=== PATIENT | male | born 1950 | race Caucasian/White ===

== ENCOUNTER → 2018-02-18 07:09 | Outpatient (CLI) | payer MEDICARE, OTHER, SELFPAY ==
--- NOTE | 2018-02-18 07:13 | CT_ITS ---
STUDY: CT MAXILLOFACIAL SINUSES REASON FOR EXAM: Male, 67 years old. Sinusitis. RADIATION DOSAGE (If Supplied By Facility): CTDIvol = ( 33.06 ) mGy, DLP = ( 813.19 ) mGycm TECHNIQUE: The patient was scanned in a multi detector CT scanner. High resolution axial imaging was performed without the administration of intravenous contrast material. Sagittal and coronal images were reconstructed. Individualized dose optimization techniques were used for this CT. COMPARISON: None. FINDINGS: FRONTAL SINUSES: There is a small mucous retention cyst within the left frontal sinus. ETHMOIDAL SINUSES: Normal aeration, without mucosal inflammatory disease. MAXILLARY SINUSES: Normal aeration, without mucosal inflammatory disease. SPHENOIDAL SINUSES: Normal aeration, without mucosal inflammatory disease. There is patency of the bilateral maxillary infundibuli with normal uncinate processes, ethmoid bullae, and hiatus semilunaris. Normal bilateral middle turbinates. Normal bilateral inferior turbinates. Normal midline nasal septum. There is patency of the bilateral nasal airways. There is no osseous expansion, destruction or sclerosis. The visualized bilateral orbital contents are normal. CT/Sinus/Facial Bone IMPRESSION: Left frontal sinus mucus retention cyst. The ostiomeatal units are patent bilaterally. Electronically Signed: Michael Chin MD at 7:36 EDT , Service support ,
== END ==
PROVIDERS: Family Provider Family Medicine; PCP Family Medicine; Visit Provider Otolaryngology
DX: J32.9 Chronic sinusitis, unspecified (principal)
CPT/HCPCS: 70486

== ENCOUNTER → 2018-06-17 11:25 | Outpatient (CLI) | payer MEDICARE, OTHER, SELFPAY ==
[2018-06-17 13:45] LABS: Absolute Lymphocyte Count 1.26 X10^3/ul (0.83-4.51); Absolute Neutrophil Count 1.9 X10^3/uL (2.0-7.7); Basophil# 0.03 X10^3/uL; Basophil% 0.8 % (0-1); Eosinophil# 0.24 X10^3/uL; Eosinophils% 6.1 % (0-5); Hematocrit 43.5 % (40-54); Lymphocyte # 1.26 X10^3/ul (4.0); Lymphocyte % 31.8 % (19-41); Mean Corp Hgb Conc 32.2 g/gl (32-36); Mean Corpuscular Volume 90.1 fL (80-94); Mean Platelet Vol. 9.5 fl (6.2-12.0); Monocyte# 0.55 X10^3/uL; Monocyte% 13.9 % (0-10); Neutrophil # 1.88 X10^3/uL (2.7-7.7); Neutrophil % 47.4 % (47-70); POSITIVE COUNT NO; POSITIVE DIFFERENTIAL NO; POSITIVE MORPHOLOGY NO; Platelet Count 284 K/mm3 (150-450); RBC Distribution Width CV 13.8 % (11.6-14.6); Red Blood Count 4.83 M/mm3 (4.6-6.2)
[2018-06-17 14:07] LABS: ALB/GLOB Ratio 1.2 RATIO (0.9-2.4); AST(SGOT) 22 U/L (15-37); Alanine Aminotransfer ALT/SGPT 30 U/L (16-61); Albumin, Serum 3.7 g/dL (3.2-5.0); Alkaline Phosphatase 84 U/L (45-117); Anion Gap 9 (5-15); BUN 11 mg/dL (7-18); BUN/Creat Ratio 13.5 RATIO (10-20); Calcium,Total 8.8 mg/dL (8.5-10.1); Chloride 100 mmol/L (98-107); Creatinine, Serum 0.81 mg/dL (0.70-1.30); EST Glomerular Filtration Rate 100 mL/min (>60); Est Glom Filt Rate - Afr Amer 121 mL/min (>60); Ferritin 59 ng/mL (26-388); Globulin 3.1 g/dL (2.2-4.2); Glucose 90 mg/dL (74-106); Protein, Total 6.8 g/dL (6.4-8.2); Sodium Level 138 mmol/L (136-145); Thyroid Stim Hormone (TSH) 1.58 uIU/mL (0.358-3.74)
[2018-06-18 08:49] LABS: Vitamin B12 292 pg/mL (211-911)
== END ==
PROVIDERS: Family Provider Family Medicine; PCP Family Medicine; Visit Provider Family Medicine
DX: R25.8 Other abnormal involuntary movements (principal)
CPT/HCPCS: 36415; 80053; 82607; 82728; 82746; 84443; 85025

== ENCOUNTER → 2018-12-16 10:00 | Outpatient (CLI) | payer MEDICARE, OTHER, SELFPAY ==
[2018-12-16 12:49] LABS: ALB/GLOB Ratio 1.3 RATIO (0.9-2.4); AST(SGOT) 17 U/L (15-37); Alanine Aminotransfer ALT/SGPT 27 U/L (16-61); Albumin, Serum 3.8 g/dL (3.2-5.0); Alkaline Phosphatase 85 U/L (45-117); Anion Gap 9 (5-15); BUN 13 mg/dL (7-18); BUN/Creat Ratio 15.2 RATIO (10-20); Calcium,Total 8.8 mg/dL (8.5-10.1); Chloride 100 mmol/L (98-107); Creatinine, Serum 0.86 mg/dL (0.70-1.30); EST Glomerular Filtration Rate 94 mL/min (>60); Est Glom Filt Rate - Afr Amer 113 mL/min (>60); Glucose 70 mg/dL (74-106); Potassium 4.1 mmol/L (3.5-5.1); Protein, Total 6.8 g/dL (6.4-8.2); Sodium Level 138 mmol/L (136-145)
[2018-12-16 13:17] LABS: Vitamin B12 > 2000 pg/mL (211-911)
== END ==
PROVIDERS: Family Provider Family Medicine; PCP Family Medicine; Visit Provider Family Medicine
DX: E53.8 Deficiency of other specified B group vitamins (principal); G40.909 Epilepsy, unspecified, not intractable, without status epilepticus
CPT/HCPCS: 36415; 80053; 80186; 82607

== ENCOUNTER → 2019-06-25 08:43 | Outpatient (CLI) | payer MEDICARE, OTHER, SELFPAY ==
[2019-06-25 10:09] LABS: Absolute Lymphocyte Count 0.93 X10^3/uL (0.83-4.51); Basophil# 0.04 X10^3/uL; Eosinophil# 0.25 X10^3/uL; Eosinophils% 6.5 % (0-5); Hemoglobin 14.1 g/dL (13.0-16.5); Lymphocyte # 0.93 X10^3/ul (4.0); Lymphocyte % 24.3 % (19-41); Mean Corp Hgb Conc 32.8 g/dL (32-36); Mean Corpuscular Hgb 30.1 pg (27.0-32.0); Mean Corpuscular Volume 91.9 fL (80-94); Monocyte# 0.58 X10^3/uL; Monocyte% 15.2 % (0-10); NRBC Flagged by Analyzer 0 % (0-5); Neutrophil # 2.01 X10^3/uL (2.7-7.7); Neutrophil % 52.7 % (47-70); Platelet Count 296 K/mm3 (150-450); RBC Distribution Width CV 13.1 % (11.6-14.6); RBC Distribution Width SD 44.2 fl (35.1-43.9); Red Blood Count 4.68 M/mm3 (4.6-6.2); White Blood Count 3.8 K/mm3 (4.4-11.0)
[2019-06-25 10:32] LABS: Vitamin B12 > 2000 pg/mL (211-911)
[2019-06-25 10:34] LABS: ALB/GLOB Ratio 1.3 RATIO (0.9-2.4); AST(SGOT) 16 U/L (15-37); Alanine Aminotransfer ALT/SGPT 26 U/L (16-61); Albumin, Serum 3.6 g/dL (3.2-5.0); Alkaline Phosphatase 89 U/L (45-117); Anion Gap 7 (5-15); BUN 7 mg/dL (7-18); BUN/Creat Ratio 9.1 RATIO (10-20); Calcium,Total 8.5 mg/dL (8.5-10.1); Chloride 102 mmol/L (98-107); Cholesterol 184 mg/dL (200); Creatinine, Serum 0.77 mg/dL (0.70-1.30); EST Glomerular Filtration Rate 106 mL/min (>60); Est Glom Filt Rate - Afr Amer 128 mL/min (>60); Ferritin 58 ng/mL (26-388); Globulin 2.8 g/dL (2.2-4.2); Glucose 90 mg/dL (74-106); High Density Lipoprotein 66 mg/dL; Magnesium 2.4 mg/dL (1.6-2.6); Potassium 3.9 mmol/L (3.5-5.1); Protein, Total 6.4 g/dL (6.4-8.2); Sodium Level 138 mmol/L (136-145); Thyroid Stim Hormone (TSH) 1.75 uIU/mL (0.358-3.74); Triglycerides 101 mg/dL; Very Low Density Lipoprotein 20 mg/dL (5-40)
== END ==
PROVIDERS: Family Provider Family Medicine; PCP Family Medicine; Referring Provider Family Medicine; Visit Provider Nurse Practitioner Family
DX: E53.8 Deficiency of other specified B group vitamins (principal); R25.8 Other abnormal involuntary movements; R53.83 Other fatigue
CPT/HCPCS: 36415; 80053; 80061; 82607; 82728; 83735; 84443; 85025

== ENCOUNTER 2019-08-23 05:29 | Observation (INO) | payer MEDICARE, OTHER, SELFPAY ==
[2019-08-23] VITALS (12 sets, daily range): BP systolic 103–126; BP diastolic 60–74; PULSE 80–103; RESP 16–18; TEMP 36.5–37.6; O2SAT 95–100; BMI 28.4; BMI 24.7; BMI 24.8
--- NOTE | 2019-08-23 05:43 | EKG12_ITS ---
Test Reason : SYNCOPE Blood Pressure : / mmHG Vent. Rate : 073 BPM Atrial Rate : 073 BPM P-R Int : 148 ms QRS Dur : 094 ms QT Int : 432 ms P-R-T Axes : 054 -09 056 degrees QTc Int : 475 ms Normal sinus rhythm Normal ECG Confirmed by JET QUIROZ, LAURA ([id number]), graphics editor SUDHIR CASTILLO ([id number]) on 08/25/2019 11:00:54 AM Referred By: GEMINI Confirmed By:LAURA CHAUDHARY MD
--- NOTE | 2019-08-23 05:43 | CT_ITS ---
STUDY: CT BRAIN WITHOUT CONTRAST REASON FOR EXAM: Male, 69 years old. Syncope, post injury. RADIATION DOSAGE (If Supplied By Facility): CTDIvol = ( 44.99 ) mGy, DLP = ( 812.98 ) mGycm TECHNIQUE: Transaxial CT imaging of the brain was performed without administration of intravenous contrast material. Individualized dose optimization techniques were used for this CT. COMPARISON: No relevant priors. FINDINGS: Normal soft tissue structures. Normal calvarium. There is mild cerebral atrophy with widening of the extra-axial spaces and ventricular dilatation. There are areas of decreased attenuation within the white matter tracts of the supratentorial brain, consistent with microvascular disease changes. Normal basal ganglia and thalami. Normal brainstem. Normal cerebellum. There is no intracranial hemorrhage. There are no findings of an acute ischemic infarction. There is mucosal thickening involving the right maxillary sinus. Remainder of the maxillary sinuses are clear. CT/Brain/Head without Contrast IMPRESSION: Generalized brain atrophy along with microangiopathic white matter disease. No acute intracranial hemorrhage or space-occupying lesion. Electronically Signed: Yola Morejon MD at 7:27 EDT , Service support ,
--- NOTE | 2019-08-23 05:44 | RAD_ITS ---
STUDY: X-RAY CHEST REASON FOR EXAM: Male, 69 years old. Reflux/syncope. TECHNIQUE: Single AP portable view of the chest. COMPARISON: None. FINDINGS: The lungs are normally expanded with right perihilar atelectasis. Remainder of the lung emery are clear. There is no demonstrated pleural abnormality. Normal size heart. Normal mediastinum and regis. Normal visualized pulmonary arteries. There is atherosclerotic calcification of the aortic arch with tortuosity. There are diffuse degenerative changes of the visualized thoracic spine. There is degenerative osteoarthritis of the bilateral shoulders. There is no demonstrated abnormality of the visualized soft tissue structures of the upper abdomen. RAD/Chest 1 View (Portable) IMPRESSION: Right perihilar atelectasis, otherwise no acute process identified. Electronically Signed: Yola Morejon MD at 6:08 EDT , Service support ,
[2019-08-23] MEDS: 0.9% Normal Saline 1,000 ML 150 ML IV ×3 (05:50→19:22)
[2019-08-23 06:11] LABS: Absolute Lymphocyte Count 0.62 X10^3/uL (0.83-4.51); Absolute Neutrophil Count 8.2 X10^3/uL (2.0-7.7); Basophil# 0.03 X10^3/uL; Basophil% 0.3 % (0-1); Eosinophil# 0.25 X10^3/uL; Eosinophils% 2.5 % (0-5); Hematocrit 42.9 % (40-54); Hemoglobin 14.2 g/dL (13.0-16.5); Lymphocyte # 0.62 X10^3/ul (4.0); Lymphocyte % 6.3 % (19-41); Mean Corp Hgb Conc 33.1 g/dL (32-36); Mean Corpuscular Hgb 30.4 pg (27.0-32.0); Mean Corpuscular Volume 91.9 fL (80-94); Mean Platelet Vol. 8.3 fl (6.2-12.0); Monocyte# 0.77 X10^3/uL; Monocyte% 7.8 % (0-10); NRBC Flagged by Analyzer 0 % (0-5); Neutrophil # 8.19 X10^3/uL (2.7-7.7); Neutrophil % 82.8 % (47-70); Platelet Count 286 K/mm3 (150-450); RBC Distribution Width CV 12.9 % (11.6-14.6); RBC Distribution Width SD 43.6 fl (35.1-43.9); Red Blood Count 4.67 M/mm3 (4.6-6.2); White Blood Count 9.9 K/mm3 (4.4-11.0)
[2019-08-23 06:28] LABS: Anion Gap 5 (5-15); BUN 12 mg/dL (7-18); BUN/Creat Ratio 17.1 RATIO (10-20); Calcium,Total 7.7 mg/dL (8.5-10.1); Chloride 102 mmol/L (98-107); EST Glomerular Filtration Rate 118 mL/min (>60); Est Glom Filt Rate - Afr Amer 142 mL/min (>60); Estimated Creatinine Clearance 61.14 ml/min; Glucose 144 mg/dL (74-106); Potassium 3.8 mmol/L (3.5-5.1); Sodium Level 136 mmol/L (136-145)
--- NOTE | 2019-08-23 06:50 | ED.VISSUMM ---
- ER Visit Summary Date of Service: 08/23/19 Chief Complaint: [Syncope] History of Present Illness: The patient is a 69 M [presents to the emergency department with syncope that occurred this morning. Patient states that he was having a hard time sleeping last night because he had a lot of heartburn and reflux. Patient woke up around 4:45 AM to use the restroom and while standing to urinate started feeling nauseated so he lowered himself toward the toilet to vomit in the toilet and then passed out onto the floor. Patient did hit his head. Patient's heard him fall and went into the bathroom and patient was confused and disoriented. EMS was called and on arrival EMS evaluated the patient made him sit in the chair which time he passed out again. He comes in stating he just does not feel right. He denies any chest pain or shortness of breath. He does have history of syncope. Patient has history of seizures. Patient is on Dilantin. No seizure activity noted by .] Physical Examination: [HEENT-PERRLA, EOMI. Cranial nerves II through XII grossly intact. TMs clear. Mucous membranes moist. No adenopathy. Cardiovascular-regular rate and rhythm without murmur or ectopy Lungs-clear to auscultation, chest wall stable without crepitus or subcu emphysema Abdomen-normoactive bowel sounds, soft, nontender, no rebound or rigidity, no peritoneal signs. Extremities-intact ?4, normal range of motion, normal pulses, atraumatic] Test Results: [EKG obtained on arrival shows sinus rhythm with a ventricular rate of 73 bpm with no acute ST segment changes. CBC with differential was normal. Chemistries normal. Troponin is less than 0.015. Calcium was low at 7.7. Chest x-ray showed some right perihilar atelectasis otherwise nothing acute. CT scan of the brain without contrast obtained interpreted by myself is no obvious hemorrhage or skull fracture. Official report pending from radiology. Dilantin level pending.] Emergency Department Course and Treatment: [Case was discussed with hospitalist who will evaluate patient for admission. Patient was placed on a traffic monitor specialist on arrival.] Treatment Plan: [Admit] Disposition: [Admit] Impression: [Syncope] This note was generated with Fib[employer] software. It may contain incorrect words, spelling, and punctuation that were not noted in review of the chart prior to signing ED Disposition - Plan for ED Patient: Referrals: Julio Rene MD [Primary Care Provider] -
--- NOTE | 2019-08-23 07:15 | NURSING ---
HOSPITALIST PAGED DR MARCIAL FOR DR THORNTON
--- NOTE | 2019-08-23 07:58 | ECHOD_ITS ---
Reason For Study: Syncope Procedure This was a 2D Doppler, Color Flow transthoracic echocardiogram. Contrast injection was performed. The study was technically difficult. Exam performed in department. Left Ventricle Normal LV size. Left ventricular systolic function is normal. Stage 1 diastolic dysfunction. No regional wall motion abnormalities noted. Right Ventricle Normal RV size. Normal systolic function. Atria Normal left atrium. Normal right atrium. Mitral Valve Normal mitral valve. Tricuspid Valve Normal tricuspid valve. Mild tricuspid valve insufficiency. Aortic Valve Trisinus/trileaflet aortic valve. Pulmonic Valve Normal pulmonic valve. Great Vessels Mildly dilated aortic root. The pulmonary artery is normal size. Normal inferior vena cava. Pericardium/Pleural No pericardial effusion. Medication Diluted definity 2ml given slow IV push to enhance endocardial definition. Performed a rapid injection of agitated mix of 9 cc saline and 1cc air to assess for atrial septal defect. MMode/2D Measurements & Calculations LVIDd: 4.2 cm IVSd: 1.2 cm Ao root diam: 3.8 cm LVIDs: 2.8 cm LVPWd: 1.1 cm LA dimension: 3.3 cm RVDd: 3.3 cm FS: 34.1 % LAV(MOD-bp): 41.0 ml LA A4 area: 14.6 cm2 RA A4 area: 13.6 cm2 LAV(MOD-bp) Indexed: 22.9 ml/m2 LAV(MOD-sp2): 42.3 ml LAV(MOD-sp4): 36.6 ml Time Measurements MV dec time: 0.22 sec Doppler Measurements & Calculations MV E max edin: 66.1 cm/sec Lat Peak E' Edin: 9.6 cm/sec Med Peak E' Edin: 5.2 cm/sec MV A max edin: 76.6 cm/sec E/E' lat: 6.9 E/E' med: 12.6 MV E/A: 0.86 MV V2 max: 79.6 cm/sec MV P1/2t max dein: 68.1 cm/sec Ao V2 max: 99.0 cm/sec MV max P.5 mmHg MV P1/2t: 81.1 msec Ao max P.9 mmHg MV V2 mean: 42.6 cm/sec MV dec slope: 245.8 cm/sec2 MV mean P.85 mmHg MV V2 VTI: 21.6 cm MVA(P1/2t): 2.7 cm2 LV V1 max: 73.2 cm/sec PA V2 max: 66.6 cm/sec TR max edin: 219.7 cm/sec LV V1 max P.1 mmHg TR max P.3 mmHg Interpretation Summary Normal LV size. Left ventricular systolic function is normal. Stage 1 diastolic dysfunction. Mild tricuspid valve insufficiency. Contrast injection was performed. Ordering Physician: Pat You Referring Physician: Julio Rene Performed By: Felix Rodriguez RCS
[2019-08-23 08:24] LABS: Phenytoin (Dilantin) Level 15.3 mL (10.0-20.0)
[2019-08-23 09:08] LABS: Cholesterol 150 mg/dL (200); High Density Lipoprotein 52 mg/dL; Triglycerides 58 mg/dL; Very Low Density Lipoprotein 12 mg/dL (5-40)
[2019-08-23] MEDS: Calcium Carb/Vitamin D 1 TABLET Tablet PO ×3 (10:05→17:17)
[2019-08-23] MEDS: Famotidine 20 MG Tablet PO (10:05)
[2019-08-23] MEDS: Aspirin 81 MG TAB.CHEW PO (10:05)
[2019-08-23] MEDS: Phenytoin Na 100 MG Capsule PO ×3 (10:06→17:17)
--- NOTE | 2019-08-23 12:10 | HP.PCM_ITS ---
Problem List (1) GERD (gastroesophageal reflux disease) Status: Chronic (2) History of seizure Status: Chronic (3) Seasonal allergies Status: Chronic (4) Syncope Status: Acute History of Present Illness Date of Admission: 08/23/19 Chief Complaint: Syncope. The patient is a 69 year old M who presents to the emergency room following 2 episodes of syncope this morning. Patient reports he was up throughout the night due to severe acid reflux and sinus drainage. He states he got up to go to the bathroom this morning and felt like he could throw up, he reports he fell to the ground at that time. He denies any dizziness or other symptoms prior to syncope. His found him on the bathroom floor and called the squad. He reports the squad helped him into a chair and he had an additional episode of syncope. He denies history of syncope in the past. He reports he has a history of seizures however he has not had a seizure in at least 10 years. He and his deny any seizure activity during syncopal episodes. Patient reports he is having difficulty sleeping and has upcoming follow-up regarding this. He also reports earlier this week he had low-grade fever, no other associated symptoms. He has a past medical history of GERD, seasonal allergies and history of seizures. Past Medical History Past Medical History (Chronic Problems): Chronic Problems GERD (gastroesophageal reflux disease) (Chronic) History of seizure (Chronic) Seasonal allergies (Chronic) Allergies No Known Allergies Allergy (Verified 08/23/19 05:30) Home Medications: Ambulatory Orders Medication Instructions Recorded Aspirin [Aspirin, Baby] 81 mg PO DAILY@0800 08/23/19 Calcium Citrate/Vitamin D3 1 ea PO TID 08/23/19 [Calcium Citrate - Vit D Tablet] Chlorpheniramine Maleate 4 mg PO QHS 08/23/19 Fluticasone 0.05% [Flonase Nasal 4 spray NASAL QHS 08/23/19 [place]] Levocetirizine Dihydrochloride 5 mg PO DAILY 08/23/19 Magnesium Oxide 250 mg PO QHS 08/23/19 Mometasone Furoate 15 gm TP DAILY PRN PRN 08/23/19 Phenytoin Na [Dilantin] 100 mg PO TID 08/23/19 Ranitidine [Zantac] 150 mg PO BID 08/23/19 Surgical History: TURP, - - Mole excision x2 as child. Psychiatric History: No pertinent psych hx Lives: Spouse/ Significant Other Smoking Status: Never smoker Alcohol: Occasional Drugs: None - *Family History Maternal History Items: - - Alzheimer's, passed related to bone infection Paternal History Items: - - Pancreatic cancer Review of Systems Constitutional: Denies: Chills, Fever, Weight Change HEENT: Reports: Sinus Drainage. Denies: Head Aches, Sinus Congestion Cardiovascular: Reports: Syncope. Denies: Chest Pain, Edema, Light Headedness, Palpitations Respiratory: Denies: Cough, Shortness of breath at rest, Sputum production Gastrointestinal: Reports: - - Acid reflux. Denies: Abdominal Pain, Nausea, Vomiting Genitourinary: Denies: Dysuria Musculoskeletal: Denies: Joint Pain, Joint Tenderness Skin: Denies: Rash, Wounds Neurological: Denies: Numbness, Tingling, Focal weakness Psychiatric: Denies: Anxiety, Depression, Homicidal Ideations, Suicidal Ideations Hematologic/ Lymphatic: Denies: Easy Bruising, Easy Bleeding VTE Information - Inpt Only VTE Present on Admission: No VTE Mechan Device Prophylaxis: None VTE Pharm Prophylaxis ordered?: Yes Patient Problems: Active and Suspected Problems Syncope (Acute) - Physical Exam Vitals/I&O's: Vital Signs Temp Pulse Resp BP Pulse Ox 98.1 F 98 17 111/60 95 08/23/19 08:03 08/23/19 11:05 08/23/19 08:03 08/23/19 08:03 08/23/19 08:15 Oxygen Delivery Method Room Air Weight: 156 lb 1.396 oz Body Mass Index (BMI) 24.7 General: Alert, Oriented x3, Cooperative HEENT: Atraumatic, PERRLA, EOMI, Normocephalic Neck: Supple, No JVD, Negative Carotid Bruits Lungs: Clear to auscultation, Normal air movement Cardiovascular: Regular rate, Regular Rhythm, Normal S1, Normal S2, No murmurs Abdomen: Bowel Sounds Present, Soft, Non Tender, Non-Distended Extremities: No clubbing, No cyanosis, No edema, Capillary Refill Less than 3 Seconds Skin: No rashes, No breakdown Musculoskeletal: No Tenderness to Palpation of Joints or Extremities Neurological: Cranial nerves II-XII grossly intact, Neuro grossly intact Psych/Mental Status: Normal Affect, Appropriate Laboratory Results 08/23/19 05:53: WBC 9.9, RBC 4.67, Hgb 14.2, Hct 42.9, MCV 91.9, MCH 30.4, MCHC 33.1, RDW Std Deviation 43.6, RDW Coeff of Joey 12.9, Plt Count 286, MPV 8.3, Immature Gran % (Auto) 0.300, Neut % (Auto) 82.8 H, Lymph % (Auto) 6.3 L, Gray % (Auto) 7.8, Eos % (Auto) 2.5, Baso % (Auto) 0.3, Absolute Neuts (auto) 8.2 H, Absolute Lymphs (auto) 0.62 L, Nucleated RBC % 0 08/23/19 05:53: Sodium 136, Potassium 3.8, Chloride 102, Carbon Dioxide 29.0, Anion Gap 5, BUN 12, Creatinine 0.70, Estim Creat Clear Calc 61.14, Est GFR (MDRD) Af Amer 142, Est GFR (MDRD) Non-Af 118, BUN/Creatinine Ratio 17.1, Glucose 144 H, Calcium 7.7 L, Troponin I < 0.015 08/23/19 07:40: Phenytoin 15.3 08/23/19 08:15: Triglycerides 58, Cholesterol 150, LDL Cholesterol 86, VLDL Cholesterol 12, HDL Cholesterol 52 08/23/19 08:15: Magnesium 2.0 08/23/19 08:15: CK Isoenzymes Pending, CK-MM (CK-3) Pending, CK-MB (CK-2) Pending, CK-BB (CK-1) Pending 08/23/19 08:15: Troponin I < 0.015 08/23/19 11:18: Troponin I < 0.015 Current Medications Aspirin (Aspirin, Baby) 81 mg PO DAILY@0800 REPLACED BY [facility] Last Admin: 08/23/19 10:05 Dose: 81 mg Documented by: Calcium/Vitamin D (Os-Rahul 500mg + D) 1 tablet PO TIDCM REPLACED BY [facility] Last Admin: 08/23/19 10:05 Dose: 1 tablet Documented by: Famotidine (Pepcid) 20 mg PO BID REPLACED BY [facility] Last Admin: 08/23/19 10:05 Dose: 20 mg Documented by: Fluticasone Propionate (Flonase Nasal [place]) 4 spray NASAL DAILY REPLACED BY [facility] Sodium Chloride () 1,000 mls @ 150 mls/hr IV .Q6H40M REPLACED BY [facility] Last Admin: 08/23/19 05:50 Dose: 150 mls/hr Documented by: Magnesium Hydroxide (Milk Of Magnesia) 30 ml PO DAILY PRN PRN PRN Reason: Constipation Melatonin (Melatonin) 3 mg PO QHS PRN PRN PRN Reason: INSOMNIA Nitroglycerin (Nitrostat) 0.4 mg SUBLINGUAL Q5M PRN PRN Reason: CARDIAC/CHEST PAIN Non-Formulary Medication (Mometasone Furoate) 15 gm TP PRN PRN PRN Reason: skin Ondansetron HCl (Zofran) 4 mg IV Q8H PRN PRN PRN Reason: NAUSEA/VOMITING Phenytoin Sodium (Dilantin) 100 mg PO TIDCM REPLACED BY [facility] Last Admin: 08/23/19 10:06 Dose: 100 mg Documented by: Assessment/Plan All Active Problems Syncope (Acute) 1. Syncope-unclear etiology. Trend enzymes. Monitor telemetry. Obtain echocardiogram and stress test. Check UA. Check orthostatic vitals. Brain CT shows generalized brain atrophy, no acute process. Chest x-ray shows right perihilar atelectasis. 2. GERD- on ranitidine at home. Try short course of PPI. 3. Seasonal allergies, sinus drainage-continue home Flonase regimen. 4. History of seizures-has not had a seizure in over 10 years. Continue home Dilantin regimen. DVT prophylaxis-SCDs This patient was seen by VAUGHN Harris under the supervision of Dr. You.
[2019-08-23 13:05] LABS: Hemoglobin A1c 5.4 % (4.2-6.3)
[2019-08-23] MEDS: Pantoprazole Sodium 40 MG Tablet PO ×2 (13:57→21:53)
[2019-08-23 14:38] LABS: Bacteria 0 SEEN /hpf (None Seen); Mucous, Urine 0 SEEN /hpf (<or=2+); Red Blood Cells-Urine 0 SEEN /hpf (0-5); White Blood Cells 0 SEEN /hpf (0-5)
[2019-08-23 14:41] LABS: Color, Urine Yellow (Yellow); Glucose, Dipstick Normal (Normal); Ketone-Dipstick Negative (Negative); Leukocyte Esterase-Dipstick Negative /ul (Negative); Nitrite-Dipstick Negative (Negative); Occult Blood-Urine Negative /ul (Negative); Protein-Dipstick Negative (Negative); Urine Bilirubin Dipstick Negative (Negative); Urine Clarity Clear (Clear); Urine Urobilinogen Normal (Normal)
[2019-08-23 14:51] LABS: Squamous Epithelial Cells - UA 0-5 SEEN /hpf (0-5)
[2019-08-24] MEDS: Fluticasone 0.05% 1 SPRAY NASAL.SRY 2 SPRAY NASAL (00:09)
[2019-08-24 00:30] VITALS: BP 128/74; PULSE 81; RESP 15; TEMP 36.8; O2SAT 99
[2019-08-24] MEDS: 0.9% Normal Saline 1,000 ML 150 ML IV ×2 (02:01→10:12)
[2019-08-24 03:00] VITALS: PULSE 76
--- NOTE | 2019-08-24 05:55 | EKG12_ITS ---
Test Reason : AM EKG Blood Pressure : / mmHG Vent. Rate : 077 BPM Atrial Rate : 077 BPM P-R Int : 128 ms QRS Dur : 092 ms QT Int : 386 ms P-R-T Axes : 017 015 046 degrees QTc Int : 436 ms Normal sinus rhythm Low voltage QRS Borderline ECG Confirmed by HERBERT QUIROZ, KEDAR ([id number]), editor greeting card SUDHIR CASTILLO ([id number]) on 08/26/2019 10:06:30 AM Referred By: AGGIE Confirmed By:KEDAR GODINEZ MD
[2019-08-24] MEDS: Aspirin 81 MG TAB.CHEW PO (06:14)
[2019-08-24 06:16] LABS: Anion Gap 5 (5-15); BUN 9 mg/dL (7-18); BUN/Creat Ratio 13.1 RATIO (10-20); Calcium,Total 7.5 mg/dL (8.5-10.1); Chloride 113 mmol/L (98-107); Creatinine, Serum 0.69 mg/dL (0.70-1.30); EST Glomerular Filtration Rate 120 mL/min (>60); Est Glom Filt Rate - Afr Amer 145 mL/min (>60); Estimated Creatinine Clearance 61.14 ml/min; Glucose 100 mg/dL (74-106); Magnesium 2.1 mg/dL (1.6-2.6); Sodium Level 143 mmol/L (136-145)
[2019-08-24 06:18] VITALS: BP 112/63; BP 113/69; BP 116/67; PULSE 77; PULSE 81; PULSE 85
[2019-08-24 06:23] VITALS: BP 116/67; PULSE 81; RESP 18; TEMP 36.8; O2SAT 99
[2019-08-24 07:00] VITALS: PULSE 76
--- NOTE | 2019-08-24 07:40 | NURSING ---
Called down to stress lab to confirm if patient may come down without shoes. They gave the okay
[2019-08-24] MEDS: Calcium Carb/Vitamin D 1 TABLET Tablet PO (10:11)
[2019-08-24] MEDS: Phenytoin Na 100 MG Capsule PO (10:11)
[2019-08-24] MEDS: Pantoprazole Sodium 40 MG Tablet PO (10:12)
--- NOTE | 2019-08-24 10:57 | CASEMGMT ---
Case Management Progress Note: This scientific technical writer went to bedside and introduced self and role to patient and patient . PEDRO form explained and reviewed with patient and in regards to current treatment for this admission. Notified that Outpatient billing is determined by insurance policy and status is continually reviewed for any changes in condition that may warrant inpatient stay. All questions answered and addressed. Provided Patient financial services contact for any further/additional questions. Patient states understanding and signed Pedro placed in patient hard chart. Copy provided to patient. Michael Ferrer RNCM
--- NOTE | 2019-08-24 11:41 | DCINST_ITS ---
- Discharge Diagnoses Current Active Problems: Current Active and Chronic Problems GERD (gastroesophageal reflux disease) (Chronic) History of seizure (Chronic) Seasonal allergies (Chronic) Syncope (Acute) You will use the following diet at home:: No restrictions Discharge Activity: Return to Normal Activity Call your doctor if you observe: Shortness of breath, Dizziness, Fainting spells, Chest pain Allergies/Adverse Reactions: Allergies No Known Allergies Allergy (Verified 08/23/19 05:30) Medications to take at Discharge Aspirin [Aspirin, Baby] 81 mg PO DAILY@0800 08/23/19 Calcium Citrate/Vitamin D3 [Calcium Citrate - Vit D Tablet] 1 ea PO TID 08/23/19 Chlorpheniramine Maleate 4 mg PO QHS 08/23/19 Fluticasone 0.05% [Flonase Nasal [place]] 4 spray NASAL QHS 08/23/19 Levocetirizine Dihydrochloride 5 mg PO DAILY 08/23/19 Magnesium Oxide 250 mg PO QHS 08/23/19 Mometasone Furoate 15 gm TP DAILY PRN PRN 08/23/19 Phenytoin Na [Dilantin] 100 mg PO TID 08/23/19 Ranitidine [Zantac] 150 mg PO BID 08/23/19 Primary Care Physician: Julio Rene MD [Primary Care Provider] - Please follow up with your Primary Care Physician in: 1 Week Test Results: Test results from this visit will be discussed in further detail at your follow- up appointment, if applicable. Proposed Discharge Date: 08/24/19
--- NOTE | 2019-08-24 11:42 | PCM.DC.SUM ---
<Shani Noonan - Last Filed: 08/24/19 11:50> Discharge Date and Diagnosis Date of Admission: 08/23/19 Date of Discharge: 08/24/19 - Primary Discharge Diagnosis Active and Suspected Problems 1. Syncope-unclear etiology. Cardiac etiology ruled out. 2. GERD 3. Seasonal allergies, sinus drainage 4. 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 No acute intracranial hemorrhage or space-occupying lesion. Electronically Signed: Yola Morejon MD at 7:27 EDT , Service support , Chest X-Ray 08/23/19 05:44 IMPRESSION: Right perihilar atelectasis, otherwise no acute process identified. Electronically Signed: Yola Morejon MD at 6:08 EDT , Service support , Operations: None Procedures: 2-D Echocardiogram, Stress test Summary of Care Provided: The patient is a 69 year old M admitted 08/23/2018 due to syncope. 1. Syncope-unclear etiology, cardiac etiology ruled out. Troponin negative. No arrhythmias on telemetry. Urinalysis unremarkable. Orthostatic vitals negative. Brain CT shows generalized brain atrophy, no acute process. Chest x-ray shows right perihilar atelectasis. Echocardiogram demonstrates normal left ventricular systolic function, stage 1 diastolic dysfunction, mild tricuspid valve insufficiency. Patient underwent nuclear stress test which was negative for ischemia. He has not had a recurrence of symptoms during admission. Follow-up with primary care physician in 1 week. 2. GERD-continue home ranitidine regimen. Patient reports intermittent increase in acid reflux. Recommended switching to PPI for short course of treatment if patient continues to have increase in reflux. 3. Seasonal allergies, sinus drainage-continue home medication regimen. 4. History of seizures-has not had a seizure in over 10 years. Continue home Dilantin regimen. Phenytoin level within normal limits, 15.3. General: Alert, Oriented x3, Cooperative HEENT: Atraumatic, PERRLA, EOMI, Normocephalic Neck: Supple, No JVD, Negative Carotid Bruits Lungs: Clear to auscultation, Normal air movement Cardiovascular: Regular rate, Regular Rhythm, Normal S1, Normal S2, No murmurs Abdomen: Bowel Sounds Present, Soft, Non Tender, Non-Distended Extremities: No clubbing, No cyanosis, No edema, Capillary Refill Less than 3 Seconds Skin: No rashes, No breakdown Musculoskeletal: No Tenderness to Palpation of Joints or Extremities Neurological: Cranial nerves II-XII grossly intact, Neuro grossly intact Psych/Mental Status: Normal Affect, Appropriate Patient seen and examined prior to discharge. Physical assessment as noted above. Patient is stable for discharge with follow up recommendations as noted above. This patient was seen by VAUGHN Harris under the supervision of Dr. Madrid. - Physical Exam Vitals/I&O's: Vital Signs Temp Pulse Resp BP Pulse Ox 98.2 F 76 18 116/67 99 08/24/19 06:23 08/24/19 07:00 08/24/19 06:23 08/24/19 06:23 08/24/19 06:23 Oxygen Delivery Method Room Air Weight: 156 lb 1.396 oz Body Mass Index (BMI) 24.7 Orthostatic Vital Signs Start: 08/24/19 06:18 Freq: q24h Status: Active Protocol: Activity Type Activity Date Activity User E-Sign Co-Sign Detail Recorded Client Recorded Date Recorded By Document 08/24/19 06:18 [id number] 08/24/19 06:23 08/24/19 06:18 Orthostatic Vitals Standing -Blood Pressure (90/60-120/80 mm Hg) 116/67 -Extremity Use Left Arm -Pulse Rate (60-100 beats/min) 81 Sitting -Blood Pressure (90/60-120/80 mm Hg) 113/69 -Extremity Use Left Arm -Pulse Rate (60-100 beats/min) 85 Lying -Blood Pressure (90/60-120/80 mm Hg) 112/63 -Extremity Use Left Arm -Pulse Rate (60-100 beats/min) 77 Intake and Output for Last 24 Hours 08/22/19 08/23/19 08/24/19 23:59 23:59 23:59 Intake Total 3675 / 4875 3097.5 / 3097.5 Output Total 575 / 575 Balance 3675 / 4300 2522.5 / 2522.5 Laboratory Results 08/23/19 11:18: Troponin I < 0.015 08/23/19 11:18: Hemoglobin A1c 5.4 08/23/19 14:32: Urine Color Yellow, Urine Clarity Clear, Urine pH 8.0, Ur Specific [place] 1.010, Urine Protein Negative, Urine Glucose (UA) Normal, Urine Ketones Negative, Urine Occult Blood Negative, Urine Nitrite Negative, Urine Bilirubin Negative, Urine Urobilinogen Normal, Ur Leukocyte Esterase Negative, Urine RBC 0 SEEN, Urine WBC 0 SEEN, Ur Squamous Epith Cells 0-5 SEEN, Urine Bacteria 0 SEEN, Urine Mucus 0 SEEN 08/24/19 05:45: Sodium 143, Potassium 4.0, Chloride 113 H, Carbon Dioxide 25.0, Anion Gap 5, BUN 9, Creatinine 0.69 L, Estim Creat Clear Calc 61.14, Est GFR (MDRD) Af Amer 145, Est GFR (MDRD) Non-Af 120, BUN/Creatinine Ratio 13.1, Glucose 100, Calcium 7.5 L, Magnesium 2.1 Current Medications Aspirin (Aspirin, Baby) 81 mg PO DAILY@0800 [facility] Last Admin: 08/24/19 06:14 Dose: 81 mg Documented by: Calcium/Vitamin D (Os-Rahul 500mg + D) 1 tablet PO TIDCM [facility] Last Admin: 08/24/19 10:11 Dose: 1 tablet Documented by: Fluticasone Propionate (Flonase Nasal [place]) [facility] Admin: 08/24/19 00:09 Dose: 2 spray Documented by: Sodium Chloride () 1,000 mls @ 150 mls/hr IV .Q6H40M [facility] Last Admin: 08/24/19 10:12 Dose: 150 mls/hr Documented by: Magnesium Hydroxide (Milk Of Magnesia) 30 ml PO DAILY PRN PRN PRN Reason: Constipation Melatonin (Melatonin) 3 mg PO QHS PRN PRN PRN Reason: INSOMNIA Nitroglycerin (Nitrostat) 0.4 mg SUBLINGUAL Q5M PRN PRN Reason: CARDIAC/CHEST PAIN Ondansetron HCl (Zofran) 4 mg IV Q8H PRN PRN PRN Reason: NAUSEA/VOMITING Pantoprazole Sodium (Protonix) 40 mg PO BID [facility] Last Admin: 08/24/19 10:12 Dose: 40 mg Documented by: Phenytoin Sodium (Dilantin) 100 mg PO TIDCM [facility] Last Admin: 08/24/19 10:11 Dose: 100 mg Documented by: Triamcinolone Acetonide (Triamcinolone Acetonide) 1 applic TOPICAL DAILY PRN PRN Discharge Diet: No Restrictions Discharge Activity: Return to Normal Activity Call your doctor if you observe: Shortness of breath, Dizziness, Fainting spells, Chest pain Home Medications: Medications to take at Discharge Aspirin [Aspirin, Baby] 81 mg PO DAILY@0800 08/23/19 Calcium Citrate/Vitamin D3 [Calcium Citrate - Vit D Tablet] 1 ea PO TID 08/23/19 Chlorpheniramine Maleate 4 mg PO QHS 08/23/19 Fluticasone 0.05% [Flonase Nasal [place]] 2 spray NASAL QHS 08/23/19 Levocetirizine Dihydrochloride 5 mg PO DAILY 08/23/19 Magnesium Oxide 250 mg PO QHS 08/23/19 Mometasone Furoate 15 gm TP DAILY PRN PRN 08/23/19 Phenytoin Na [Dilantin] 100 mg PO TID 08/23/19 Ranitidine [Zantac] 150 mg PO BID 08/23/19 Primary Care Physician: Julio Rene MD [Primary Care Provider] - Please follow up with your Primary Care Physician in: 1 Week Disposition: Home Minutes spent on discharge:: 35 Patient Condition:: Stable Medical Necessity - Tobacco Use Smoking Status: Never smoker Meaningful Use Info Meaningful Use Diagnoses (Choose all that apply): None applicable <GmsophiecoltVictor Manuelraul E - Last Filed: 08/24/19 12:50> Discharge Date and Diagnosis - Secondary Discharge Diagnosis Chronic Problems GERD (gastroesophageal reflux disease) (Chronic) History of seizure (Chronic) Seasonal allergies (Chronic) Hospital Course and Treatment Imaging Results: 08/24/19 05:55 Nuclear Stress Test - Treadmil [NM] AM (NON MEDS) Summary of Care Provided: Hospitalist note: Discharge summary above reviewed and I concur with the above discharge and treatment plan. Patient was admitted for syncopal episode for evaluation. His EKG revealed normal sinus rhythm without evidence of cardiac arrhythmias or acute ischemic changes. CT scan brain showed no acute findings. Chest x-ray showed no acute infiltrate, consolation or effusion. His cardiac enzymes are negative x3. His routine blood work was unremarkable. His orthostatic vitals were unremarkable. 2D echocardiogram performed and revealed normal LV size and function, stage I diastolic dysfunction, no significant valvular heart disease. Nuclear stress test done and showed no evidence of stress-induced myocardial ischemia. There was no obvious etiology for the syncopal episode. ACS ruled out. Acute stroke ruled out. Patient discharged home in a stable medical condition, discharged on his previous home medications without any changes, recommended follow-up with PCP in 1 week. - Physical Exam General: Alert, Oriented x3, Cooperative, No apparent distress. HEENT: Atraumatic, PERRLA, EOMI. Neck: Supple, No JVD, Negative Carotid Bruits, Trachea Midline, Thyroid Normal. Lungs: Clear to auscultation, Normal air movement, No rhonchi, No wheeze, No rales. Cardiovascular: Regular rate, Regular Rhythm, Normal S1, Normal S2, PMI Normal. Abdomen: Bowel Sounds Present, Soft, Non Tender, Non-Distended, No Hepato-splenomegaly. Extremities: No clubbing, No cyanosis, No edema Skin: No rashes, No breakdown Neurological: Neuro grossly intact Vital Signs are stable. This note was generated with Posto7 dictation software. It may contain incorrect words, spelling, and punctuation that were not noted in checking the note before signing. - Physical Exam Vitals/I&O's: Vital Signs Temp Pulse Resp BP Pulse Ox 98.2 F 76 18 116/67 99 08/24/19 06:23 08/24/19 07:00 08/24/19 06:23 08/24/19 06:23 08/24/19 06:23 Oxygen Delivery Method Room Air Weight: 156 lb 1.396 oz Body Mass Index (BMI) 24.7 Orthostatic Vital Signs Start: 08/24/19 06:18 Freq: q24h Status: Active Protocol: Activity Type Activity Date Activity User E-Sign Co-Sign Detail Recorded Client Recorded Date Recorded By Document 08/24/19 06:18 [id number] 08/24/19 06:23 CS 08/24/19 06:18 Orthostatic Vitals Standing -Blood Pressure (90/60-120/80) 116/67 -Extremity Use Left Arm -Pulse Rate (60-100) 81 Sitting -Blood Pressure (90/60-120/80) 113/69 -Extremity Use Left Arm -Pulse Rate (60-100) 85 Lying -Blood Pressure (90/60-120/80) 112/63 -Extremity Use Left Arm -Pulse Rate (60-100) 77 Intake and Output for Last 24 Hours 08/22/19 08/23/19 08/24/19 23:59 23:59 23:59 Intake Total 3675 / 4875 3097.5 / 3097.5 Output Total 575 / 575 Balance 3675 / 4300 2522.5 / 2522.5 Laboratory Results 08/23/19 11:18: Hemoglobin A1c 5.4 08/23/19 14:32: Urine Color Yellow, Urine Clarity Clear, Urine pH 8.0, Ur Specific [place] 1.010, Urine Protein Negative, Urine Glucose (UA) Normal, Urine Ketones Negative, Urine Occult Blood Negative, Urine Nitrite Negative, Urine Bilirubin Negative, Urine Urobilinogen Normal, Ur Leukocyte Esterase Negative, Urine RBC 0 SEEN, Urine WBC 0 SEEN, Ur Squamous Epith Cells 0-5 SEEN, Urine Bacteria 0 SEEN, Urine Mucus 0 SEEN 08/24/19 05:45: Sodium 143, Potassium 4.0, Chloride 113 H, Carbon Dioxide 25.0, Anion Gap 5, BUN 9, Creatinine 0.69 L, Estim Creat Clear Calc 61.14, Est GFR (MDRD) Af Amer 145, Est GFR (MDRD) Non-Af 120, BUN/Creatinine Ratio 13.1, Glucose 100, Calcium 7.5 L, Magnesium 2.1 Current Medications Aspirin (Aspirin, Baby) 81 mg PO DAILY@0800 [facility] Last Admin: 08/24/19 06:14 Dose: 81 mg Documented by: Calcium/Vitamin D (Os-Rahul 500mg + D) 1 tablet PO TIDCM [facility] Last Admin: 08/24/19 10:11 Dose: 1 tablet Documented by: Fluticasone Propionate (Flonase Nasal [place]) 2 spray NASAL QHS [facility] Last Admin: 08/24/19 00:09 Dose: 2 spray Documented by: Sodium Chloride () 1,000 mls @ 150 mls/hr IV .Q6H40M [facility] Last Admin: 08/24/19 10:12 Dose: 150 mls/hr Documented by: Magnesium Hydroxide (Milk Of Magnesia) 30 ml PO DAILY PRN PRN PRN Reason: Constipation Melatonin (Melatonin) 3 mg PO QHS PRN PRN PRN Reason: INSOMNIA Nitroglycerin (Nitrostat) 0.4 mg SUBLINGUAL Q5M PRN PRN Reason: CARDIAC/CHEST PAIN Ondansetron HCl (Zofran) 4 mg IV Q8H PRN PRN PRN Reason: NAUSEA/VOMITING Pantoprazole Sodium (Protonix) 40 mg PO BID [facility] Last Admin: 08/24/19 10:12 Dose: 40 mg Documented by: Phenytoin Sodium (Dilantin) 100 mg PO TIDCM [facility] Last Admin: 08/24/19 10:11 Dose: 100 mg Documented by: Triamcinolone Acetonide (Triamcinolone Acetonide) 1 applic TOPICAL DAILY PRN PRN Disposition: Home Minutes spent on discharge:: 25 Patient Condition:: Stable Meaningful Use Info Meaningful Use Diagnoses (Choose all that apply): None applicable Code Visit OBSV E&M: 63727 Observation care discharge
--- NOTE | 2019-08-24 11:58 | PHA.DC.MR ---
Pharmacy Service has performed discharge medication reconciliation for this patient. No new medications at time of discharge. Medications reviewed are from previously reported home medications. The patient's discharge medication list was reviewed for discrepancies and discrepancies were resolved. Home Medications Aspirin [Aspirin, Baby] 81 mg PO DAILY@0800 08/23/19 Calcium Citrate/Vitamin D3 [Calcium Citrate - Vit D Tablet] 1 ea PO TID 08/23/19 Chlorpheniramine Maleate 4 mg PO QHS 08/23/19 Fluticasone 0.05% [Flonase Nasal [place]] 2 spray NASAL QHS 08/23/19 Levocetirizine Dihydrochloride 5 mg PO DAILY 08/23/19 Magnesium Oxide 250 mg PO QHS 08/23/19 Mometasone Furoate 15 gm TP DAILY PRN PRN 08/23/19 Phenytoin Na [Dilantin] 100 mg PO TID 08/23/19 Ranitidine [Zantac] 150 mg PO BID 08/23/19
[2019-08-24 12:20] VITALS: BP 123/76; PULSE 82; RESP 16; TEMP 36.7; O2SAT 98
--- NOTE | 2019-08-24 13:43 | STRESSREP_ITS ---
Stress Test Report Exercise myocardial perfusion stress test. 69-year-old male with a history of syncope. Stress protocol: Resting EKG demonstrates normal sinus rhythm with a rate of 70 bpm normal intervals are noted resting blood pressures 112/70 mmHg. The patient exercised according to regular Jose protocol for total duration of 6 minutes completing s tage II of the Jose protocol. The maximum heart rate attained was 144 bpm which was 96% of maximum predicted heart rate the maximum workload was 7 metabolic equivalents. At rest there were no ST or T wave changes noted suggest ischemia. The patient maintained sinus rhythm throughout the recording a peak exercise upsloping ST changes only were noted with no meet the criteria for ischemia. Resting blood pressures 112/70 mmHg with a peak blood pressure 140/70 mmHg. No clinical angina was noted. Myocardial perfusion protocol. 12.0 mCi of technetium 99m sestamibi was injected at rest. The patient exercised according to regular Jose protocol for 6 minutes attaining 96% of maximum predicted heart rate and a workload of 7 metabolic equivalents. At peak exercise 36.0 mCi of technetium 99m sestamibi was injected stress images obtained stress and rest images were reconstructed in comparing the short axis vertical and horizontal long axis. Gated images were also obtained. Gated SPECT analysis: The gated ejection fraction is noted to be 69%. Perfusion SPECT analysis: Review of the stress images demonstrate normal uptake of tracer noted in all rest myocardium. The resting images similar demonstrate normal uptake of tracer noted in all areas of myocardium. No areas of reversibility are noted suggest ischemia no previous infarct is noted. Conclusion: Normal exercise myocardial perfusion stress test. Mild functional aerobic impairment. Preserved ejection fraction.
[2019-08-25 16:08] LABS: Creatine Kinase MB 0 % (0-3); Creatine Kinase MM 100 % (97-100); Creatine Kinase,Total,Serum 81 U/L (24-204); Macro I 0 % (Not Observed); Macro II 0 % (Not Observed)
[2019-08-25 20:20] LABS: Creatine Kinase BB 0 % (0)
== END 2019-08-24 11:41 | disposition home or self-care (01) ==
LOC: ED 06:22 → PCU 07:33
PROVIDERS: Nurse Practitioner Family; Admitting Provider Internal Medicine; Emergency Provider Emergency Medicine; Family Provider Family Medicine; PCP Family Medicine; Visit Provider Hospitalist
DX: R55 Syncope and collapse (principal); K21.9 Gastro-esophageal reflux disease without esophagitis; G40.909 Epilepsy, unspecified, not intractable, without status epilepticus; Z79.899 Other long term (current) drug therapy; Z79.82 Long term (current) use of aspirin; I07.1 Rheumatic tricuspid insufficiency; R11.2 Nausea with vomiting, unspecified; I77.819 Aortic ectasia, unspecified site; G31.9 Degenerative disease of nervous system, unspecified; J98.11 Atelectasis; G47.00 Insomnia, unspecified; R41.0 Disorientation, unspecified; R12 Heartburn; I70.0 Atherosclerosis of aorta; Q25.46 Tortuous aortic arch; M19.012 Primary osteoarthritis, left shoulder; M19.011 Primary osteoarthritis, right shoulder; J30.9 Allergic rhinitis, unspecified; R94.30 Abnormal result of cardiovascular function study, unspecified; R11.0 Nausea; I36.1 Nonrheumatic tricuspid (valve) insufficiency; R07.9 Chest pain, unspecified
CPT/HCPCS: 36415; 70450; 71045; 78452; 80048; 80061; 80185; 81001; 82550; 82552; 83036; 83735; 84484; 85025; 93005; 93017; 93306; 96360; 96361; 99218; 99285; A9500; J7030; Q9957; A4216; C8929; G0378

== ENCOUNTER → 2019-08-28 11:40 | Outpatient (CLI) | payer MEDICARE, OTHER, SELFPAY ==
[2019-08-23 08:05] VITALS: BMI 24.7
[2019-08-28 14:10] LABS: Absolute Neutrophil Count 1.9 X10^3/uL (2.0-7.7); Basophil# 0.04 X10^3/uL; Eosinophil# 0.27 X10^3/uL; Eosinophils% 6.9 % (0-5); Hematocrit 42.9 % (40-54); Lymphocyte % 30.8 % (19-41); Mean Corp Hgb Conc 32.6 g/dL (32-36); Mean Corpuscular Hgb 29.7 pg (27.0-32.0); Mean Corpuscular Volume 91.1 fL (80-94); Monocyte# 0.51 X10^3/uL; Monocyte% 13.1 % (0-10); NRBC Flagged by Analyzer 0 % (0-5); Neutrophil # 1.85 X10^3/uL (2.7-7.7); Neutrophil % 47.7 % (47-70); POSITIVE MORPHOLOGY YES; Platelet Count 382 K/mm3 (150-450); RBC Distribution Width CV 12.9 % (11.6-14.6); RBC Distribution Width SD 43.7 fl (35.1-43.9); Red Blood Count 4.71 M/mm3 (4.6-6.2); White Blood Count 3.9 K/mm3 (4.4-11.0)
[2019-08-28 14:18] LABS: Differential Indicated SCAN CRITERIA MET
[2019-08-28 14:32] LABS: AST(SGOT) 14 U/L (15-37); Alanine Aminotransfer ALT/SGPT 27 U/L (16-61); Albumin, Serum 3.5 g/dL (3.2-5.0); Alkaline Phosphatase 101 U/L (45-117); Anion Gap 7 (5-15); BUN 12 mg/dL (7-18); BUN/Creat Ratio 15.2 RATIO (10-20); Chloride 98 mmol/L (98-107); Creatinine, Serum 0.79 mg/dL (0.70-1.30); EST Glomerular Filtration Rate 103 mL/min (>60); Est Glom Filt Rate - Afr Amer 124 mL/min (>60); Globulin 3.4 g/dL (2.2-4.2); Glucose 89 mg/dL (74-106); Potassium 4.1 mmol/L (3.5-5.1); Protein, Total 6.9 g/dL (6.4-8.2); Sodium Level 136 mmol/L (136-145); T4 Free Direct 0.94 ng/dL (0.76-1.46); Thyroid Stim Hormone (TSH) 1.14 uIU/mL (0.358-3.74)
[2019-08-28 14:47] LABS: Vitamin D,25 Hydroxy 27.4 ng/mL (29.95-100.01)
[2019-08-28 14:58] LABS: PTHIN 32.9 pg/mL (18.4-80.1)
[2019-08-28 20:33] LABS: Anisocytosis 1+; Platelet Estimate ADEQUATE (ADEQ); Red Cell Morphology N CHROM NORMAL (NORM C&C)
[2019-08-28 20:36] LABS: Reactive Lymphocyte 1+
== END ==
PROVIDERS: Family Provider Family Medicine; PCP Family Medicine; Visit Provider Family Medicine
DX: E83.51 Hypocalcemia (principal); R55 Syncope and collapse
CPT/HCPCS: 36415; 80053; 82306; 83970; 84439; 84443; 85025

== ENCOUNTER → 2019-11-24 10:03 | Outpatient (CLI) | payer MEDICARE, OTHER, SELFPAY ==
[2019-08-23 08:05] VITALS: BMI 24.7
[2019-11-24 11:41] LABS: PSA,Total- Diagnostic 2.61 ng/mL (0.0-4.0)
== END ==
LOC: LAB 10:05
PROVIDERS: PCP Family Medicine; Referring Provider Urology; Visit Provider Urology
DX: N40.1 Benign prostatic hyperplasia with lower urinary tract symptoms (principal)
CPT/HCPCS: 36415; 84153

== ENCOUNTER → 2020-01-19 08:43 | Outpatient (CLI) | payer MEDICARE, OTHER, SELFPAY ==
[2019-08-23 08:05] VITALS: BMI 24.7
[2020-01-19 10:19] LABS: Absolute Lymphocyte Count 1.08 X10^3/uL (0.83-4.51); Absolute Neutrophil Count 2.2 X10^3/uL (2.0-7.7); Basophil# 0.06 X10^3/uL; Basophil% 1.4 % (0-1); Eosinophil# 0.35 X10^3/uL; Eosinophils% 8.1 % (0-5); Hematocrit 44.2 % (40-54); Hemoglobin 14.2 g/dL (13.0-16.5); Lymphocyte # 1.08 X10^3/ul (4.0); Mean Corp Hgb Conc 32.1 g/dL (32-36); Mean Corpuscular Volume 90.4 fL (80-94); Mean Platelet Vol. 8.9 fl (6.2-12.0); Monocyte# 0.68 X10^3/uL; Monocyte% 15.7 % (0-10); NRBC Flagged by Analyzer 0 % (0-5); Neutrophil # 2.15 X10^3/uL (2.7-7.7); Neutrophil % 49.8 % (47-70); Platelet Count 298 K/mm3 (150-450); RBC Distribution Width CV 13.7 % (11.6-14.6); RBC Distribution Width SD 45.2 fl (35.1-43.9); Red Blood Count 4.89 M/mm3 (4.6-6.2); White Blood Count 4.3 K/mm3 (4.4-11.0)
[2020-01-19 10:36] LABS: Cholesterol 192 mg/dL (200); High Density Lipoprotein 71 mg/dL; Triglycerides 78 mg/dL; Very Low Density Lipoprotein 16 mg/dL (5-40)
[2020-01-19 10:58] LABS: Vitamin D,25 Hydroxy 22.5 ng/mL
[2020-01-19 10:59] LABS: Vitamin B12 > 2000 pg/mL (211-911)
== END ==
PROVIDERS: PCP Family Medicine; Referring Provider Family Medicine; Visit Provider Family Medicine
DX: E53.8 Deficiency of other specified B group vitamins (principal); E55.9 Vitamin D deficiency, unspecified; E78.00 Pure hypercholesterolemia, unspecified
CPT/HCPCS: 36415; 80061; 82306; 82607; 85025

== ENCOUNTER → 2020-05-02 13:09 | Outpatient (CLI) | payer MEDICARE, OTHER, SELFPAY ==
[2019-08-23 08:05] VITALS: BMI 24.7
--- NOTE | 2020-05-02 14:00 | SP.MBSS_ITS ---
PRIMARY / SECONDARY DIAGNOSIS: dysphagia (R13.10) CURRENT DIET (SOLIDS): regular textures (IDDSI: 7) CURRENT DIET (LIQUIDS): thin liquid diets (IDDSI: 0) DENTITION: natural upper / lower dentition MENTAL STATUS: intact RESPIRATORY STATUS: O2 via room air CURRENT FUNCTIONAL AMBULATION CATEGORY (FAC): 5 (ambulator- independent) REASON FOR REFERRAL: The Patient is a 70 year old male referred for a modified barium swallow (MBS) study to objectively assess the Patients oropharyngeal swallow function under fluoroscopy secondary to reported post prandial globus sensation with intermittent throat clearing and coughing, with esophagram scheduled 05/03/2020. MEDICAL HISTORY: Gastroesophageal reflux disease, history of seizure, seasonal allergies PREVIOUS MODIFIED BARIUM SWALLOW STUDY RESULTS: None ADDITIONAL OBJECTIVE ASSESSMENT RESULTS: 08/23/2019 CT of the brain revealed generalized brain atrophy along with microangiopathic white matter disease; no acute intracranial hemorrhage or space-occupying lesion. 11/30/2014 upper GI series revealed a small sliding scale hiatal hernia 03/10/2015 esophagram revealed mild esophagitis; sliding type I hiatal hernia with small paraesophageal diverticulum; spontaneous gastroesophageal reflux ASSESSMENT PARAMETERS: The Patient participated in a Modified Barium Swallow (MBS) study on 05/02/2020. This study was recorded in the lateral view and images were sent to PACs for storage. Scoring was completed through each trial using the 8- point Penetration-Aspiration Scale (PAS) and the Videofluoroscopic Scale Score (VSS), and summarized via the Modified Barium Swallow Impairment Profile (MBSImP) and the Bolus Residue Scale (BRS), with severity scoring through the Dysphagia Severity Rating Scale (DSRS) and the Dysphagia Classification Scale (DCS), and recommended diet textures through the International Dysphagia Diet Standardisation Initiative (IDDSI) RESULTS OF THE EVALUATION: The Patient presents with mild oropharyngeal dysphagia (DSRS: 2) with grade II overt aspiration of thin liquids OBJECTIVE ASSESSMENT OF SWALLOW FUNCTION (QUANTITATIVE ? PER TRIAL): PENETRATION / ASPIRATION SCALE (MILLER): 1 = does not enter airway 2 = enters airway/above vocal folds/ejected 3 = enters airway/above vocal folds/not ejected 4 = enters airway/contacts vocal folds/ejected 5 = enters airway/contacts vocal folds/not ejected 6 = enters airway/below vocal folds/ejected 7 = enters airway/below vocal folds/not ejected despite effort 8 = enters airway/below vocal folds/no effort VIDEOFLOROSCOPIC SCALE SCORE (MILLER): Grade I = aspiration of material that has penetrated into the laryngeal vestibule, intact cough reflex Grade II = aspiration < 10 % of the bolus, intact cough reflex Grade III = aspiration of < 10 % of the bolus, reduced cough reflex or aspiration of > 10 % of the bolus, intact cough reflex Grade IV = aspiration of > 10 % of the bolus, reduced cough reflex PENETRATION / ASPIRATION SCALE (SCORE) WITH VIDEOFLOROSCOPIC SCALE SCORE: Thin liquid - 5 mL tsp.: 1 Thin liquids via cup (single sip): 1 Thin liquids via cup (single sip): 1 Thin liquids via cup (single sip): 1 Thin liquids via cup (sequential swallows): 1 Pudding via spoon: 1 Regular textured cookie: 1 Thin liquids via straw (single sip): 7* ? Grade II Thin liquids via straw (single sip): 1 Thin liquids via straw (single sip): 1 * denotes very scant aspiration noted upon review OBJECTIVE ASSESSMENT OF SWALLOW FUNCTION (QUANTITATIVE ? AGGREGATE): MODIFIED BARIUM SWALLOW IMPAIRMENT PROFILE (MBSImP) LABIAL SEAL: 0 (of 4) no labial escape TONGUE CONTROL: 0 (of 3) cohesive bolus BOLUS PREPARATION / MASTICATION: 0 (of 3) timely and efficient BOLUS TRANSPORT / LINGUAL MOTION: 0 (of 4) brisk tongue motion ORAL RESIDUE: 1 (of 4) trace residue lining oral structures INITIATION OF PHARYNGEAL SWALLOW: 0 (of 4) posterior angle of ramus SOFT PALATE ELEVATION: 0 (of 4) no bolus between soft palate & pharyngeal wall LARYNGEAL ELEVATION: 0 (of 3) complete superior movement / approximation ANTERIOR HYOID EXCURSION: 0 (of 2) complete movement EPIGLOTTIC MOVEMENT: 0 (of 2) complete inversion LARYNGEAL VESTIBULE CLOSURE: 0 (of 2) complete closure PHARYNGEAL STRIPPING WAVE: 1 (of 2) present / diminished PE SEGMENT OPENIN (of 3) partial distension / duration / obstruction TONGUE BASE RETRACTION: 2 (of 4) narrow column of contrast PHARYNGEAL RESIDUE: 2 (of 4) collection of residue ESOPHAGEAL BOLUS CLEARANCE: could not view BOLUS RESIDUE SCALE (BRS): BRS SCORE: 4 (of 6) BRS SCORE DESCRIPTION: residue in valleculae and posterior pharyngeal wall or piriform sinus OBJECTIVE ASSESSMENT OF SWALLOW FUNCTION (SEVERITY GRADING): DYSPHAGIA SEVERITY RATING SCALE (DSRS): DSRS CLASSIFICATION: 2 (mild) DSRS CLASSIFICATION CHARACTERISTICS: oropharyngeal dysphagia present, which can be managed by specific swallow suggestions; DYSPHAGIA CLASSIFICATION SCALE (DCS): DCS CLASSIFICATION: D1 (mild) DCS CLASSIFICATION CHARACTERISTICS: mild stasis, without food consistency restriction OBJECTIVE ASSESSMENT OF SWALLOW FUNCTION (QUALITATIVE): ORAL PREPARATORY PHASE: competent bolus manipulation without fragmented swallowing (piecemeal deglutition); sufficient anterior oral containment during oral manipulation; preserved management of breathing / bolus formation without disrupted E ? S ? E pattern ORAL TRANSITIONAL PHASE: sufficient bolus transportation; no lingual discoordination (no tremor / undulations); occasional fragmented swallowing (piecemeal deglutition); sufficient oral clearance; no presence of premature posterior bolus loss; PHARYNGEAL PHASE: overall age appropriate pharyngeal phase synchrony with the exception of 1 event with somewhat odd intake pattern (almost anticipating an issue prior to deglutition) resulting in the sole aspiration event; appropriate hyolaryngeal excursion and laryngeal vestibule closure / pressure; mild pharyngeal dysmotility most prominently with more viscous textures; appropriate velopharyngeal functioning; no further penetration / aspiration throughout trials. ESOPHAGEAL PHASE: no obvious esophageal phase abnormalities observed. CONTRIBUTING / COMPLICATING FACTORS AND NOTABLE FINDINGS: sufficient / strong cough intensity to expel penetrated material / laryngotracheal aspiration; rather large cricopharyngeal bar located at the C-6 level. RESPONSE TO STRATEGIES: all deficits managed successfully with bolus rate / volume adjustments, DYSPHAGIA ASSOCIATED MEDICAL CONSIDERATIONS / INTERVENTION CONSIDERATIONS: The Patient was noted to overtly aspirate during trials of thin liquids with very scant quantities, suggesting clinical assessment at bedside relying on identification of classic overt signs and symptoms of aspiration may be sufficient to determine appropriateness for PO texture upgrade to thin liquids. INTERVENTION RECOMMENDATIONS AND CONSIDERATIONS: The Patient may benefit from 1-2 follow up skilled speech-language intervention sessions primarily targeting diet texture management and training / implementation of recommended compensatory strategies; POST ASSESSMENT EDUCATION: The results and recommendations were discussed with the Patient immediately following MBS completion, with the Patient verbalizing understanding and agreement with all recommendations and education provided; however the visualization of aspiration occurred PRIOR to completion of education, with further education likely beneficial follow full review. DIET TEXTURE RECOMMENDATIONS: Will recommend a regular textured (IDDSI: 7), thin liquid diet (IDDSI: 0) diet RECOMMENDED COMPENSATORY STRATEGIES: Reduced bolus volume / rate of ingestion, liquid chaser at reasonable intervals, seated upright at 90 degrees during PO intake, remain upright for 30-60 minutes post meal (GERD precaution) IMAGE COUNT: [id number] Keith Oneil M.A., [employer] OFFICER, CBIS MBSImP Certified, LSVT Certified [facility] Speech-Language Pathology Department Email: [email or web address]
== END ==
PROVIDERS: PCP Family Medicine; Referring Provider Otolaryngology; Visit Provider Otolaryngology
DX: R13.10 Dysphagia, unspecified (principal)
CPT/HCPCS: 74230; 92611

== ENCOUNTER → 2020-05-03 09:25 | Outpatient (CLI) | payer MEDICARE, OTHER, SELFPAY ==
[2019-08-23 08:05] VITALS: BMI 24.7
--- NOTE | 2020-05-03 09:28 | RAD_ITS ---
STUDY: X-RAY - ESOPHAGUS (BARIUM SWALLOW) WITH FLUOROSCOPY REASON FOR EXAM: Male, 70 years old. Coughing and clearing throat during meals -- feels like food gets stuck -- reflux -- x years -- esophagram study done 5 years ago showed hiatal hernia -- pt had cookie swallow yesterday TECHNIQUE: 17 view(s) of the esophagus were obtained following swallowing of barium. FLUOROSCOPY TIME (if supplied): (0:36) minutes/seconds COMPARISON: Comparison is made with prior examination dated March 10, 2015. FINDINGS: There is no demonstrated esophageal foreign body. There is no demonstrated stricture or mucosal abnormality. There is a small hiatal hernia of the fundus of the stomach. The patient ingested a 12 mm tablet of barium without any difficulty. Normal visualized aortic arch and descending thoracic aorta. Calcified left hilar lymph nodes. Normal visualized osseous structures of the thorax. RAD/Esophagus Dual Contrast IMPRESSION: Small hiatal hernia without gastroesophageal reflux. Electronically Signed: Salas Hull, at 10:22 EDT , Service support ,
== END ==
PROVIDERS: PCP Family Medicine; Referring Provider Otolaryngology; Visit Provider Otolaryngology
DX: R13.10 Dysphagia, unspecified (principal)
CPT/HCPCS: 74221

== ENCOUNTER 2020-06-27 09:25 | Outpatient (RCR) | payer MEDICARE, OTHER, SELFPAY ==
[2019-08-23 08:05] VITALS: BMI 24.7
--- NOTE | 2020-06-27 09:30 | SOAP_ITS ---
REASON FOR REFERRAL: The Patient is a 70 year old male referred for a clinical assessment of the swallow function at [facility] / [facility] on 06/27/2020 secondary to reported post prandial globus sensation with intermittent throat clearing and coughing, with recent modified barium swallow study (05/02/2020) and esophagram (05/03/2020) completed. The Patient reports consistent throat clearing not associated with PO intake (attributed to post nasal drip and / or gastroesophageal reflux), with occasional post prandial coughing (< 1x per week) that has not significantly changed throughout the past few years. He further reports mild xerostomia in the morning associated with use of his CPAP. He reports a history of gastroesophageal reflux disease, which he is prescribed Pantoprazole. He denies any unintentional weight loss; denies any issues with appetite, early satiety (feeling full after few bites), inanition, nausea, or emesis; denies issues with hypogeusia (reduced taste), dysgeusia (abnormal / unpleasant taste), ageusia (absence of taste), or hyposmia (reduced smell); denies issues with diurnal sialorrhea (drooling during the daytime); denies any symptoms associate with trismus; denies odynophagia (pain during swallow); denies any suboptimal intake behaviors (tachyphagia, bolus bolting, or aerophagia); and denies any current or previous issues with aspiration related pulmonary complications, to include pneumonia, bronchitis, or unexplained asthma symptoms. He appears cognitively intact, and affect appears appropriate. The Patient is fully ambulatory with no difficulties with posture maintenance, and appears sufficiently nourished. MEDICAL HISTORY: Gastroesophageal reflux disease, history of seizure, seasonal allergies PREVIOUS MODIFIED BARIUM SWALLOW STUDY: 05/02/2020 MBS revealed mild oropharyngeal dysphagia (DSRS: 2) with grade II overt aspiration of thin liquids ADDITIONAL OBJECTIVE ASSESSMENT RESULTS: 05/03/2020 barium swallow study revealed a small hiatal hernia without gastroesophageal reflux. 08/23/2019 CT of the brain revealed generalized brain atrophy along with microangiopathic white matter disease; no acute intracranial hemorrhage or space-occupying lesion. 11/30/2014 upper GI series revealed a small sliding scale hiatal hernia 03/10/2015 esophagram revealed mild esophagitis; sliding type I hiatal hernia with small paraesophageal diverticulum; spontaneous gastroesophageal reflux RESULTS OF THE EVALUATION: The Patient presents with mild oropharyngeal dysphagia (SPS: 2) with grade II overt aspiration of thin liquids identified under fluoroscopy. CLINICAL ASSESSMENT OF SWALLOW FUNCTION (QUANTITATIVE): ROBBINS 6 FACTORS: DYSPHONIA: 0 (negative) DYSARTHRIA: 0 (negative) ABNORMAL GAG RESPONSE: 0 (negative) ABNORMAL VOLITIONAL COUGH: 0 (negative) POST PRANDIAL COUGHIN (positive) POST PRANDIAL VOCAL CHANGES: 0 (negative) ROBBINS 6 FACTORS SCORE: 1 ROBBINS 6 FACTORS DESCRIPTION: normal to mild (0 to 1 clinical predictors) WREN ASSESSMENT OF SWALLOWING ABILITY (MASA): MASA SEVERITY SCORE: 192 MASA SEVERITY SCORE DESCRIPTION: unremarkable MASA ASPIRATION SEVERITY SCORE: 192 MASA ASPIRATION SEVERITY SCORE DESCRIPTION: unremarkable MASA DYSPHAGIA RISK RATING: possible; lowered probability of disorder CLINICAL ASSESSMENT OF SWALLOW FUNCTION (QUALITATIVE): ORAL PREPARATORY PHASE: competent bolus manipulation; sufficient anterior oral containment during manipulation; preserved management of breathing / bolus formation without disrupted E ? S ? E pattern ORAL TRANSITIONAL PHASE: no signs of transitional incompetence; no signs of bolus consolidation impairments; sufficient oral containment across textures PHARYNGEAL PHASE: appropriate hyolaryngeal excursion; no obvious findings suggestive of pharyngeal phase delay / dyssynchrony; no subjective signs of pharyngeal dysmotility (mild under fluoroscopy); no subjective signs of velopharyngeal impairments; ESOPHAGEAL PHASE: esophageal phase appears unremarkable aside from persistent gastroesophageal reflux managed with pantoprazole. COMPLICATING FACTORS AND NOTABLE FINDINGS: persistent throat clearing may mask overt aspiration events, though the significance of this does not increase with intake, suggesting an association with post nasal drip / gastroesophageal reflux vs. 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 RESPONSE TO STRATEGIES: all deficits managed successfully with bolus rate / volume adjustments under fluoroscopy. CLINICAL ASSESSMENT OF SWALLOW FUNCTION (SEVERITY GRADING): SWALLOWING PERFORMANCE SCALE (SPS): SPS SCORE: 3 (mild) SPS SCORE DESCRIPTION: mild dysfunction in oral or pharyngeal stage; requires therapeutic swallowing precautions without the need for modified diet DYSPHAGIA ASSOCIATED MEDICAL CONSIDERATIONS / INTERVENTION CONSIDERATIONS: The Patient was noted to overtly aspirate during trials of thin liquids with very scant quantities, suggesting clinical assessment at bedside relying on identification of classic overt signs and symptoms of aspiration may be sufficient to determine tolerance of thin liquids. INTERVENTION RECOMMENDATIONS AND CONSIDERATIONS: No further intervention warranted at this time. POST ASSESSMENT EDUCATION: We discussed the results of the MBS that were visualized following the completion of the assessment, as visualization of aspiration occurred AFTER the completion of education, with further education completed this date. The results and recommendations were discussed with the Patient immediately following completion of the assessment, with the Patient verbalizing understanding and agreement with all recommendations and education provided. We discussed factors impacting effects of aspiration, to include: the quantity of aspiration, the depth of aspiration (trachea or distal airways), and the physical properties of the aspirate. We discussed consequences of oropharyngeal dysphagia, to include pulmonary complications from tracheobronchial aspiration; inadequate oral intake because of dysphagia; reduced liquid intake resulting in dehydration; complications in overall course of care with and increased risk for mortality / ; though this was completed more so as general education, as his sole aspiration event may represent a normal variant vs. a disorder given the entirety of his oropharyngeal swallow profile. We discussed the recommended intake precautions (reduced bolus volume), with the Patient demonstrating sufficient comprehension to suggest adherence to recommendations. I provided brief overview of signs and symptoms of aspiration, with recommendations for the Patient to further discuss symptoms with the Patients primary care provider. DIET TEXTURE RECOMMENDATIONS: Will recommend a regular textured (IDDSI: 7), thin liquid diet (IDDSI: 0) diet RECOMMENDED COMPENSATORY STRATEGIES: Reduced bolus volume / rate of ingestion, liquid chaser at reasonable intervals, seated upright at 90 degrees during PO intake, remain upright for 30-60 minutes post meal (GERD precaution) Keith Oneil M.A., CCC-BASIC ACOUSTIC ANALYST, CBIS MBSImP Certified, LSVT Certified [facility] Speech-Language Pathology Department Email: [email or web address]
--- NOTE | 2020-10-07 12:54 | HP.SP.DC_ITS ---
ST Discharge Summary - Discharged: Discharge: The patient is a 70 year old male who was referred for a clinical assessment of the swallow function at [facility] on 06/27/2020 secondary to reported post prandial globus sensation with intermittent throat clearing and coughing, with recent modified barium swallow study (05/02/2020) and esophagram (05/03/2020) completed. The results of the 05/02/2020 MBS revealed mild oropharyngeal dysphagia (DSRS: 2) with grade II overt aspiration of thin liquids. The results of the 06/27/2020 clinical assessment revealed mild oropharyngeal dysphagia (SPS: 2) with grade II overt aspiration of thin liquids identified under fluoroscopy. We discussed the results of the MBS that were visualized following the completion of the assessment, as well as the results and recommendations of the clinical assessment, with the patient verbalizing understanding and agreement with all recommendations and education provided. We discussed factors impacting effects of aspiration, to include: the quantity of aspiration, the depth of aspiration (trachea or distal airways), and the physical properties of the aspirate. We discussed consequences of oropharyngeal dysphagia, to include pulmonary complications from tracheobronchial aspiration; inadequate oral intake because of dysphagia; reduced liquid intake resulting in dehydration; complications in overall course of care with and increased risk for mortality / ; though this was completed more so as general education, as his sole aspiration event may represent a normal variant vs. a disorder given the entirety of his oropharyngeal swallow profile. We discussed the recommended intake precautions (reduced bolus volume), with the patient demonstrating sufficient comprehension to suggest adherence to recommendations. The patient elected to pursue no further skilled speech-language pathology intervention at this time. I provided brief overview of signs and symptoms of aspiration, with recommendations for the patient to further discuss symptoms with the patient?s primary care provider. I will discharge the patient from the skilled speech-language pathology caseload at this time though would gladly re-initiate intervention as needed moving forward.
== END 2020-06-27 19:00 | disposition home or self-care (01) ==
LOC: SP 09:25
PROVIDERS: PCP Family Medicine; Referring Provider Family Medicine; Visit Provider Family Medicine
DX: R13.10 Dysphagia, unspecified (principal)
CPT/HCPCS: 92610

== ENCOUNTER 2020-12-26 06:55 | Outpatient (RCR) | payer MEDICARE, OTHER, SELFPAY ==
[2019-08-23 08:05] VITALS: BMI 24.7
== END 2020-12-26 23:59 ==
LOC: IMMUN 06:55
PROVIDERS: PCP Family Medicine; Visit Provider Family Medicine
DX: Z23 Encounter for immunization (principal)
CPT/HCPCS: 0011A; 0012A

== ENCOUNTER 2021-01-06 08:50 | Day surgery (SDC) | payer MEDICARE, OTHER, SELFPAY ==
[2019-08-23 08:05] VITALS: BMI 24.7
--- NOTE | 2021-01-04 16:03 | EKG12_ITS ---
Test Reason : PRE-OP Blood Pressure : / mmHG Vent. Rate : 067 BPM Atrial Rate : 067 BPM P-R Int : 148 ms QRS Dur : 090 ms QT Int : 412 ms P-R-T Axes : 054 -24 042 degrees QTc Int : 435 ms Normal sinus rhythm Normal ECG Confirmed by HERBERT QUIROZ, KEDAR ([id number]), film or videotape editor SUDHIR CASTILLO ([id number]) on 01/05/2021 11:10:24 AM Referred By: Mahesh Jeter Confirmed By:KEDAR GODINEZ MD
[2021-01-04 17:04] LABS: Hematocrit 42.7 % (40-54); Hemoglobin 13.7 g/dL (13.0-16.5); Mean Corp Hgb Conc 32.1 g/dL (32-36); Mean Corpuscular Volume 90.3 fL (80-94); Mean Platelet Vol. 8.4 fl (6.2-12.0); Platelet Count 299 K/mm3 (150-450); RBC Distribution Width CV 13.2 % (11.6-14.6); RBC Distribution Width SD 44.5 fl (35.1-43.9); Red Blood Count 4.73 M/mm3 (4.6-6.2); White Blood Count 4.7 K/mm3 (4.4-11.0)
[2021-01-04 17:17] LABS: Partial Thromboplast Time 27.4 Seconds (24.1-36.2)
[2021-01-06] VITALS (17 sets, daily range): BP systolic 73–122; BP diastolic 44–81; PULSE 41–98; RESP 16–20; TEMP 36.1–37.2; O2SAT 97–100; BMI 25.2
--- NOTE | 2021-01-06 | PROS_PTH ---
PATIENT: MAUREEN RUSHING [place] [facility] [place][id number] AGE/SX: 70/M ROOM: RE01/06/[address]: Dr. Samson Oquendo MD : [id number] BED: DIS: 01/07/2021 SPEC #: [id number] RECD: 01/06/21 15:16 STATUS: OSCAR RE #: [id number] JONATHAN: 01/06/21 00:[address]: Mahesh Jeter DEPT: SURGICAL PATHOLOGY RECD BY: Oleg Claros ENTERED: 01/09/21 08:05 SP TYPE: TURP OTHR DR: MD Dr. Samson Ann MD Dr. Eric Smith, MD Dr. Juan Miguel Proano, MD Tissues: Prostate, NOS Procedures: Surgery Specimen Level IV Comments: @ Ordering doctor for SUIV edited from to @ by CRISTIAN at 01/09/21 7149 @ Submitting doctor edited from to @ by RGOOD at 01/09/21 1350 HEADER OPERATION: Cysto, TUR prostate, Olympus PRE-OP DIAGNOSIS: BPH with obstruction, lower urinary tract symptoms TISSUE SUBMITTED: Prostate tissue MICROSCOPIC DIAGNOSIS Prostate, transurethral resection: Benign nodular hyperplasia, glandular and stromal types. Mild chronic inflammation. AM:jem 01/10/2021 MICROSCOPIC DESCRIPTION Slides are reviewed. GROSS DESCRIPTION Received is one container labeled with the patient's name and designated prostate tissue. The specimen consists of multiple irregular fragments of pink-wen, rubbery, soft tissue that in aggregate weigh 7.2 gm and measure in aggregate 4.5 x 4 x 0.3 cm. The entire specimen is submitted in four cassettes. / AM:jem 01/09/21 TC:3 CPT: 66531
[2021-01-06] MEDS: Lactated Ringers 1,000 ML 100 ML IV ×2 (09:46→15:41)
[2021-01-06] MEDS: Cefazolin 2 GM in 0.9% Normal Saline 100 ML IV (12:58)
--- NOTE | 2021-01-06 13:00 | HP.PCM_ITS ---
Problem List (1) BPH with obstruction/lower urinary tract symptoms Status: Acute History of Present Illness Date of Admission: 01/06/21 Chief Complaint: BPH with obstruction The patient is a 70 year old male with a history of BPH has obstructive prostate plan to proceed with a TURP today. Past Medical History Past Medical History (Chronic Problems): Chronic Problems GERD (gastroesophageal reflux disease) (Chronic) History of seizure (Chronic) Seasonal allergies (Chronic) Allergies No Known Allergies Allergy (Verified 01/06/21 09:23) Home Medications: Ambulatory Orders Medication Instructions Recorded Aspirin [Aspirin, Baby] 81 mg PO DAILY@0800 08/23/19 Calcium Citrate/Vitamin D3 1 ea PO TID 08/23/19 [Calcium Citrate - Vit D Tablet] Chlorpheniramine Maleate 4 mg PO QHS 08/23/19 Fluticasone 0.05% [Flonase Nasal 4 spray NASAL QHS 08/23/19 [place]] Levocetirizine Dihydrochloride 5 mg PO DAILY 08/23/19 Magnesium Oxide 250 mg PO QHS 08/23/19 Mometasone Furoate 15 gm TP DAILY PRN PRN 08/23/19 Phenytoin Na [Dilantin] 100 mg PO TID 08/23/19 Cholecalciferol (VIT D3) [Vitamin 1,000 unit PO DAILY 12/30/20 D] Cider Vinegar [Apple Cider Vinegar] 600 mg PO TID 12/30/20 Ipratropium [place] 15 ml NS BID 12/30/20 Pantoprazole Sodium [Protonix] 40 mg PO DAILY 12/30/20 Ciprofloxacin [Cipro] 500 mg PO BID #10 tab 01/06/21 Ibuprofen 600 mg PO Q6H PRN PRN #14 tab 01/06/21 Surgical History: - - Mole excision x2 as child. Psychiatric History: No pertinent psych hx Smoking Status: Never smoker Tobacco Use: Non-smoker - *Family History Maternal History Items: - - Alzheimer's, passed related to bone infection Paternal History Items: - - Pancreatic cancer Review of Systems Constitutional: Denies: Chills, Fever, Weight Change HEENT: Denies: Head Aches, Sinus Congestion, Sinus Drainage Cardiovascular: Denies: Chest Pain, Palpitations Respiratory: Denies: Cough, Shortness of breath at rest, Sputum production Gastrointestinal: Denies: Abdominal Pain, Nausea, Vomiting Genitourinary: Denies: Dysuria Musculoskeletal: Denies: Joint Pain, Joint Tenderness Skin: Denies: Rash, Wounds Neurological: Denies: Numbness, Tingling, Focal weakness Psychiatric: Denies: Anxiety, Depression, Homicidal Ideations, Suicidal Ideations Hematologic/ Lymphatic: Denies: Easy Bruising, Easy Bleeding VTE Information - Inpt Only VTE Present on Admission: No VTE Mechan Device Prophylaxis: SCD's - Physical Exam Vitals/I&O's: Vital Signs Temp Pulse Resp BP Pulse Ox 98.1 F 71 16 117/79 100 01/06/21 09:27 01/06/21 09:27 01/06/21 09:27 01/06/21 09:27 01/06/21 09:27 Oxygen Delivery Method Room Air Weight: 72 kg Body Mass Index (BMI) 25.2 General: Alert, Oriented x3, Cooperative HEENT: Atraumatic, PERRLA, EOMI, Normocephalic Neck: Supple, No JVD, Negative Carotid Bruits Lungs: Clear to auscultation, Normal air movement Cardiovascular: Regular rate, No murmurs Abdomen: Bowel Sounds Present, Soft, Non Tender Extremities: No edema, Capillary Refill Less than 3 Seconds Skin: No rashes, No breakdown Musculoskeletal: No Tenderness to Palpation of Joints or Extremities Neurological: Cranial nerves II-XII grossly intact Psych/Mental Status: Normal Affect, Appropriate Microbiology Past 72 Hours 01/04/21 16:12 Interface Orders SARS-CoV-2 Antigen (Rapid) - Final Current Medications Lactated Ringer's () 1,000 mls @ 100 mls/hr IV .Q10H NINA Last Admin: 01/06/21 09:46 Dose: 100 mls/hr Documented by: Assessment/Plan All Active Problems BPH with obstruction/lower urinary tract symptoms (Acute) Plan to proceed with a TURP
--- NOTE | 2021-01-06 13:10 | PCM.DC.URO ---
Discharge Diet: Light diet - advance as tolerated Discharge Activity: May not drive while taking narcotic pain medications., May Shower Call your doctor if your incision/area has: Sudden Increased Bleeding Call your doctor if you observe: Fever of 101 or Higher Suture Line Care: Avoid Pulling/Pushing, Avoid Pinching/Bending Instructions: Transurethral Resection of the Prostate (TURP): Home Recovery Allergies/Adverse Reactions: Allergies No Known Allergies Allergy (Verified 01/06/21 09:23) Medications to take at Discharge Aspirin [Aspirin, Baby] 81 mg PO DAILY@0800 08/23/19 Calcium Citrate/Vitamin D3 [Calcium Citrate - Vit D Tablet] 1 ea PO TID 08/23/19 Chlorpheniramine Maleate 4 mg PO QHS 08/23/19 Fluticasone 0.05% [Flonase Nasal [place]] 4 spray NASAL QHS 08/23/19 Levocetirizine Dihydrochloride 5 mg PO DAILY 08/23/19 Magnesium Oxide 250 mg PO QHS 08/23/19 Mometasone Furoate 15 gm TP DAILY PRN PRN 08/23/19 Phenytoin Na [Dilantin] 100 mg PO TID 08/23/19 Cholecalciferol (VIT D3) [Vitamin D] 1,000 unit PO DAILY 12/30/20 Cider Vinegar [Apple Cider Vinegar] 600 mg PO TID 12/30/20 Ipratropium [place] 15 ml NS BID 12/30/20 Pantoprazole Sodium [Protonix] 40 mg PO DAILY 12/30/20 Ciprofloxacin [Cipro] 500 mg PO BID #10 tab 01/06/21 Ibuprofen 600 mg PO Q6H PRN PRN #14 tab 01/06/21 The following prescriptions were given: Ciprofloxacin [Cipro] 500 mg PO BID #10 tab Transmission Status: Received by [id number] Ibuprofen 600 mg PO Q6H PRN PRN #14 tab PRN Reason: pain Transmission Status: Received by [id number] Primary Care Physician: Julio Rene MD [Primary Care Provider] - Test Results: Test results from this visit will be discussed in further detail at your follow-up appointment, if applicable. Please Follow Up With: Mahesh Jeter MD When: in 2 weeks, please call to make an appointment. Proposed Discharge Date: 01/07/21
--- NOTE | 2021-01-06 13:45 | PCM.OPRPT ---
Problem List (1) BPH with obstruction/lower urinary tract symptoms Status: Acute Report of Operation Date of Procedure: 01/06/21 Pre-Operative Diagnosis: BPH with obstruction Post-Operative Diagnosis: Same Surgery/Procedure Performed:: Transurethral section of the prostate Description of Surgical Findings:: In the preoperative setting I discussed with the patient how the surgery would be done with expect afterwards. We discussed how a prostate resection is done and we discussed the risk of the surgery including, bleeding, infection, retrograde ejaculation, changes with ejaculation or intercourse,. We discussed the possibility that the resection of the prostate may not alleviate his urinary symptoms. We discussed the small risk of developing scar tissue along the urethral channel and strictures. We also discussed the chance of the prostate could grow back and he may need further surgery or treatment in the future for prostate problems. Patient was taken back to the operating room, timeout procedure was performed, he was identified and marked and placed on the operating room table. He underwent general anesthesia. He was placed in dorsolithotomy position. Penis and testicles were prepped and draped in usual sterile fashion. Went into the bladder using the visual obturator with a resectoscope. Once inside the bladder identified the right and left ureteral orifice. I then identified the prostate and the anatomy of the prostate. I marked out the area of the sphincter and the verumontanum was identified. I then proceeded with the prostate resection first resected the median lobe. And then resected the right lobe of the prostate. Then to resect the left lobe of the prostate. I then resected the apical tissue of the prostate. Made sure that there was no injury to the sphincter or the verumontanum was still intact. At the end of the resection all the chips were Ellik out of the bladder. I then identified the left and right ureteral orifice and these were confirmed to be in good position and effluxing and not injured. The resectoscope was removed, a 22 [place] catheter was placed into the bladder on continuous irrigation. And the urine was fairly light pink color and draining normally. He was taken back to the PACU in good condition. Type of Anesthesia:: General Drains: 22fr 3 way - Admit VTE Documentation VTE Present on Admission: No VTE Mechan Device Prophylaxis: SCD's
[2021-01-06] MEDS: Phenytoin Na 100 MG Capsule PO (15:42)
[2021-01-06] MEDS: Lactated Ringers 1,000 ML 999 ML IV (18:20)
--- NOTE | 2021-01-06 18:28 | EKG12_ITS ---
Test Reason : SYNCOPE Blood Pressure : / mmHG Vent. Rate : 054 BPM Atrial Rate : 054 BPM P-R Int : 158 ms QRS Dur : 092 ms QT Int : 450 ms P-R-T Axes : 060 009 030 degrees QTc Int : 426 ms Sinus bradycardia Otherwise normal ECG When compared with ECG of 04-JAN-2021 16:28, No significant change was found Confirmed by JET QUIROZ, LAURA ([id number]), movie editor SUDHIR CASTILLO ([id number]) on 01/11/2021 10:26:16 AM Referred By: Mahesh Jeter Confirmed By:LAURA CHAUDHARY MD
--- NOTE | 2021-01-06 18:32 | PN_ITS ---
Patient Problems: Active and Suspected Problems BPH with obstruction/lower urinary tract symptoms (Acute) Subjective: The patient is a 70 y/o M w/ PMHx: Allergic Rhinitis, GERD, Seizure disorder, Hx prior syncopal events who presents to the [facility] as direct admission per Dr. Jeter for planned TURP with noted 01/06/21 OR note without any significant perioperative events until syncope event while in bed. Work-up included most recently T 98.7, heart rate 64, BP 122/81, respiratory rate 18, #room air however patient had near postop syncope while in bed BP noted to decrease to 79/49 with also bradycardia with heart rate into the 40s. Per Dr. Jeter patient EKG as well as troponin requested as well as normal saline bolus and hospitalist medicine service consultation requested. Upon evaluation of patient he notes that he was attempting to sit upright in bed following the OR and had lightheadedness and dizziness preceding and feels as though it similar to his prior syncopal events. Patient with significant IV fluid bolus going now feeling somewhat improved with no lightheadedness or dizziness in Trendelenburg. Patient now on telemetry with EKG sinus rhythm with no acute evidence of ischemia. Patient denies fevers, chills, nausea, emesis, abdominal pain, chest pain or dyspnea. He does note some urinary mild discomfort which is expected. Objective: Physical Examination: General: awake, alert, oriented x 3 and cooperative, laying in Trendelenburg in the medical surgical bed on telemetry, denies any lightheadedness or dizziness currently. Skin: normal color, turgor, no icterus, cyanosis. HEENT: AT/NC, EOMI, PERRLA, moderately dry MM. Lungs: Diminished breath sounds bases, normal effort, no rales, ronchi or wheezing. Heart: Mildly bradycardic with regular rhythm; no gallop, rub audible. Abdomen: soft, NTTP, ND, normal BS, no HSM, catheter in place with ongoing irrigation status post recent TRUP. Extremities: no cyanosis, clubbing, or edema. Neurological: patient awake, alert, oriented x 3; cognitive function intact; pupils equally reactive to light and accomodation; cranial nerves II-XII grossly normal, moving all 4 extremities, no focal deficits, strength severely global decreased given acute presentation recently and recent surgery. Psychiatric: affect appears fatigued otherwise normal, no acute evidence of depressive or anxiety feelings. Vitals/I&O's: Vital Signs Temp Pulse Resp BP Pulse Ox 98.7 F 64 18 122/81 H 100 01/06/21 17:00 01/06/21 17:00 01/06/21 17:00 01/06/21 17:00 01/06/21 17:00 Oxygen Flow Rate (L/min) 8 Oxygen Delivery Method Room Air Weight: 158 lb 11.725 oz Body Mass Index (BMI) 25.2 Intake and Output for Last 24 Hours 01/04/21 01/05/21 01/06/21 23:59 23:59 23:59 Intake Total 710 / 710 Output Total 2700 / 2700 Balance -1989 / -1989 Microbiology Past 72 Hours 01/04/21 16:12 Interface Orders SARS-CoV-2 Antigen (Rapid) - Final Current Medications Acetaminophen (Acetaminophen 325 Mg Tablet) 325 - 650 mg PO Q4H PRN PRN PRN Reason: pain score 1-10/fever/headache Aspirin (Aspirin 81 Mg Tab.Chew) 81 mg PO DAILY@0800 [facility] Belladonna Alkaloids/Opium (Opium/Belladonna Alkaloids 60 Mg/15 Mg Suppository) 60 mg RC Q6H PRN PRN PRN Reason: Spasm Docusate Sodium (Docusate Sodium 100 Mg Capsule) 100 mg PO BID [facility] Fluticasone Propionate (Fluticasone 0.05% 1 [place] Nasal.Sry) 2 spray NASAL QHS [facility] Hydralazine HCl (Hydralazine 20 Mg/Ml Vial) 10 mg IV Q4H PRN PRN PRN Reason: SBP > 160 Lactated Ringer's () 1,000 mls @ 125 mls/hr IV .Q8H [facility] Last Admin: 01/06/21 15:41 Dose: 100 mls/hr Documented by: Ciprofloxacin (Cipro) 400 mg in 200 mls @ 200 mls/hr IV Q12 [facility] Stop: 01/07/21 10:59 Lactated Ringer's () 1,000 mls @ 999 mls/hr IV .Q1H1M [facility] Stop: 01/06/21 19:30 Ibuprofen (Ibuprofen 600 Mg Tablet) 600 mg PO Q6H PRN PRN PRN Reason: PAIN 1-10 Ipratropium [place] (Ipratropium [place] 0.06% Nasal [place]) 2 spray NASAL BID [facility] Ketorolac Tromethamine (Ketorolac 15 Mg/Ml Vial) 15 mg IV Q6H PRN PRN PRN Reason: PAIN 1-10 Stop: 01/08/21 13:04 Loratadine (Loratadine 10 Mg Tablet) 10 mg PO DAILY [facility] Magnesium Chloride (Magnesium Chloride 64 Mg Delay Rel.Tablet) 128 mg PO QHS [facility] Metoclopramide HCl (Metoclopramide 10 Mg/2 Ml Vial) 10 mg IV Q8H PRN PRN PRN Reason: Nausea/vomiting Ondansetron HCl (Ondansetron 4 Mg/2 Ml Vial) 4 mg IV Q8H PRN PRN Reason: Nausea Oxycodone HCl (Oxycodone 5 Mg Tablet) 5 mg PO Q4H PRN PRN PRN Reason: PAIN 1-10 Pantoprazole Sodium (Pantoprazole Sodium 40 Mg Tablet) 40 mg PO DAILY [facility] Phenytoin Sodium (Phenytoin Na 100 Mg Capsule) 100 mg PO TIDCM [facility] Last Admin: 01/06/21 15:42 Dose: 100 mg Documented by: Sodium Chloride (0.9% Saline Lock 10 Ml Syringe) 10 - 40 ml IV UD PRN PRN Reason: SALINE FLUSH Tolterodine Tartrate (Tolterodine Tartrate 4 Mg Cap.Sa) 4 mg PO DAILY PRN PRN PRN Reason: Spasms Triamcinolone Acetonide (Triamcinolone 0.5% Cream) 1 applic TOPICAL DAILY PRN PRN PRN Reason: SKIN IRRITATION STROKE Vital Signs/Narrative: Vital Signs Temp Pulse Resp BP Pulse Ox 01/06/21 17:00 98.7 F 64 18 122/81 H 100 01/06/21 15:01 98 01/06/21 15:00 97.8 F 78 16 111/70 99 Medical Necessity - Tobacco Use Smoking Status: Never smoker Tobacco Use: Non-smoker Assessment/Plan All Active Problems BPH with obstruction/lower urinary tract symptoms (Acute) The patient is a 70 y/o M w/ PMHx: Allergic Rhinitis, GERD, Seizure disorder, Hx prior syncopal events who presents to the [facility] as direct admission per Dr. Jeter for planned TURP with noted 01/06/21 OR note without any significant perioperative events until syncope event while in bed, attempting to get up with staff. 1. Syncopal Event: Patient syncopal event with positional changes, attempting to get up out of bed, seated upright with significant hypotension noted upon vital sign assessment which is likely etiology. Cardiac troponin pending, EKG with sinus rhythm with no acute evidence of ischemia. CBC requested as well as Dilantin level although low suspicion for alternate etiology. Will place on telemetry, continue to closely monitor, complete 1 L fluid bolus and continue more aggressive maintenance IV fluids, maintain on fall precautions, await hemog lobin level given recent surgery although per discussion with staff no marked bleeding reported, if altered cardiac enzyme will continue to trend. 2. Allergic rhinitis: We will continue patient home levocetirizine regimen with noted as needed usage daily of mometasone. 3. Seizure disorder: We will continue patient home Dilantin regimen with Dilantin level requested as noted. 4. GERD: We will continue patient home PPI regimen. 5. DVT prophylaxis: SCDs, defer chemoprophylaxis to urology especially given recent procedure.
--- NOTE | 2021-01-06 18:43 | NURSING ---
nurse in room to set pt up in chair post op, pt was sitting in high fowlers in bed and started c/o i feel dizzy , this is what happens when i get syncope-pt head lowered, apical in low 40's-high 30's radial
[2021-01-06 19:18] LABS: Absolute Lymphocyte Count 0.99 X10^3/uL (0.83-4.51); Absolute Neutrophil Count 3.9 X10^3/uL (2.0-7.7); Basophil# 0.04 X10^3/uL; Basophil% 0.7 % (0-1); Eosinophil# 0.23 X10^3/uL; Eosinophils% 3.9 % (0-5); Hematocrit 37.5 % (40-54); Hemoglobin 12.2 g/dL (13.0-16.5); Lymphocyte # 0.99 X10^3/ul (4.0); Lymphocyte % 16.7 % (19-41); Mean Corp Hgb Conc 32.5 g/dL (32-36); Mean Corpuscular Hgb 29.2 pg (27.0-32.0); Mean Corpuscular Volume 89.7 fL (80-94); Mean Platelet Vol. 8.3 fl (6.2-12.0); Monocyte# 0.77 X10^3/uL; NRBC Flagged by Analyzer 0 % (0-5); Neutrophil # 3.89 X10^3/uL (2.7-7.7); Neutrophil % 65.4 % (47-70); Platelet Count 255 K/mm3 (150-450); RBC Distribution Width CV 13.2 % (11.6-14.6); RBC Distribution Width SD 43.8 fl (35.1-43.9); Red Blood Count 4.18 M/mm3 (4.6-6.2); White Blood Count 5.9 K/mm3 (4.4-11.0)
[2021-01-06 19:54] LABS: Anion Gap 5 (5-15); BUN 7 mg/dL (7-18); BUN/Creat Ratio 8.7 RATIO (10-20); Calcium,Total 8.1 mg/dL (8.5-10.1); Chloride 103 mmol/L (98-107); EST Glomerular Filtration Rate 101 mL/min (>60); Est Glom Filt Rate - Afr Amer 122 mL/min (>60); Estimated Creatinine Clearance 75.32 ml/min; Glucose 123 mg/dL (74-106); Magnesium 2.1 mg/dL (1.6-2.6); Potassium 3.4 mmol/L (3.5-5.1); Sodium Level 138 mmol/L (136-145)
[2021-01-06 20:18] LABS: Phenytoin (Dilantin) Level 12.3 mL (10.0-20.0)
[2021-01-06] MEDS: Ketorolac 15 MG/ML Vial IV (21:33)
[2021-01-06] MEDS: Ipratropium Bromide 0.06% NASAL SPRAY 2 SPRAY NASAL (21:35)
[2021-01-06] MEDS: Fluticasone 0.05% 1 SPRAY NASAL.SRY 2 SPRAY NASAL (21:36)
[2021-01-06] MEDS: Magnesium Chloride 64 MG Delay Rel.Tablet 128 MG PO (21:40)
[2021-01-06] MEDS: Ciprofloxacin 400 MG/200 ML BAG 200 MG IV (21:48)
[2021-01-07] VITALS (9 sets, daily range): BP systolic 91–118; BP diastolic 53–68; PULSE 62–91; RESP 16–18; TEMP 36.8–37.4; O2SAT 96–100; BMI 25.2
[2021-01-07] MEDS: Lactated Ringers 1,000 ML 125 ML IV (02:23)
[2021-01-07] MEDS: Aspirin 81 MG TAB.CHEW PO (07:48)
[2021-01-07] MEDS: Phenytoin Na 100 MG Capsule PO ×2 (07:48→13:05)
--- NOTE | 2021-01-07 07:49 | PCM.PN.HOSP ---
Patient Problems: Active and Suspected Problems BPH with obstruction/lower urinary tract symptoms (Acute) Reason for Visit: Status post TURP Syncopal episode Subjective: Patient is a 71-year-old gentleman who underwent TURP on 01/06/[address] Hampton. Patient did experience postop syncope with systolic blood pressure dropping to 7949 with bradycardia with heart rate in the low 40s. The hospitalist service was subsequently consulted to assist with management of patient medical comorbidities Objective: GENERAL: cooperative HEENT: Atraumatic; EYES; Anicteric, Normal Conjunctiva NECK; supple, normal thyroid, RESPIRATORY: Diminished to auscultation CARDIOVASCULAR: Regular S1 S2, GI: soft, normoactive bowel sounds, :3 way Lopes catheter in place EXTREMITIES: No edema, no clubbing, MUSCULOSKELETAL: no muscle waisting NEURO: Awake; no lateralizing signs. SKIN: No Rash PSYCH; Flat affect Vitals/I&O's: Vital Signs Temp Pulse Resp BP Pulse Ox 99.4 F H 69 16 91/53 L 96 01/07/21 02:24 01/07/21 05:59 01/07/21 02:24 01/07/21 02:24 01/07/21 02:24 Oxygen Flow Rate (L/min) 2 Oxygen Delivery Method Room Air Weight: 72 kg Body Mass Index (BMI) 25.2 Orthostatic Vital Signs Start: 01/06/21 19:05 Freq: q24h Status: Active Protocol: Activity Type Activity Date Activity User E-Sign Co-Sign Detail Recorded Client Recorded Date Recorded By Document 01/06/21 19:43 LD [id number] 01/06/21 19:46 LD 01/06/21 19:43 Orthostatic Vitals Sitting -Blood Pressure (90/60-120/80) 98/62 -Extremity Use Left Arm -Pulse Rate (60-100) 69 Standing -Blood Pressure (90/60-120/80) 100/69 -Extremity Use Left Arm -Pulse Rate (60-100) 71 Lying -Blood Pressure (90/60-120/80) 95/57 L -Pulse Rate (60-100) 54 L Intake and Output for Last 24 Hours 01/05/21 01/06/21 01/07/21 23:59 23:59 23:59 Intake Total 2910 / 3610 2700 / 2700 Output Total 2700 / 2700 450 / 450 Balance 210 / 910 2250 / 2250 Microbiology Past 72 Hours 01/04/21 16:12 Interface Orders SARS-CoV-2 Antigen (Rapid) - Final Laboratory Results 01/06/21 19:01: WBC 5.9, RBC 4.18 L, Hgb 12.2 L, Hct 37.5 L, MCV 89.7, MCH 29.2, MCHC 32.5, RDW Std Deviation 43.8, RDW Coeff of Joey 13.2, Plt Count 255, MPV 8.3, Immature Gran % (Auto) 0.300, Neut % (Auto) 65.4, Lymph % (Auto) 16.7 L, [place] % (Auto) 13.0 H, Eos % (Auto) 3.9, Baso % (Auto) 0.7, Absolute Neuts (auto) 3.9, Absolute Lymphs (auto) 0.99, Nucleated RBC % 0 01/06/21 19:01: Sodium 138, Potassium 3.4 L, Chloride 103, Carbon Dioxide 30.0, Anion Gap 5, BUN 7, Creatinine 0.80, Estim Creat Clear Calc 75.32, Est GFR (MDRD) Af Amer 122, Est GFR (MDRD) Non-Af 101, BUN/Creatinine Ratio 8.7 L, Glucose 123 H, Calcium 8.1 L, Magnesium 2.1, Troponin I < 0.015 01/06/21 19:01: Phenytoin 12.3 Current Medications Acetaminophen (Acetaminophen 325 Mg Tablet) 325 - 650 mg PO Q4H PRN PRN PRN Reason: pain score 1-10/fever/headache Aspirin (Aspirin 81 Mg Tab.Chew) 81 mg PO DAILY@0800 [facility] Last Admin: 01/07/21 07:48 Dose: 81 mg Documented by: Belladonna Alkaloids/Opium (Opium/Bell[place]onna Alkaloids 60 Mg/15 Mg Suppository) 60 mg RC Q6H PRN PRN PRN Reason: Spasm Docusate Sodium (Docusate Sodium 100 Mg Capsule) 100 mg PO BID [facility] Last Admin: 01/06/21 21:45 Dose: Not Given Documented by: Fluticasone Propionate (Fluticasone 0.05% 1 [place] Nasal.Sry) 2 spray NASAL QHS [facility] Last Admin: 01/06/21 21:36 Dose: 2 spray Documented by: Hydralazine HCl (Hydralazine 20 Mg/Ml Vial) 10 mg IV Q4H PRN PRN PRN Reason: SBP > 160 Lactated Ringer's () 1,000 mls @ 125 mls/hr IV .Q8H [facility] Last Admin: 01/07/21 02:23 Dose: 125 mls/hr Documented by: Ciprofloxacin (Cipro) 400 mg in 200 mls @ 200 mls/hr IV Q12 [facility] Stop: 01/07/21 10:59 Last Infusion: 01/06/21 23:00 Dose: Infused Documented by: Ibuprofen (Ibuprofen 600 Mg Tablet) 600 mg PO Q6H PRN PRN PRN Reason: PAIN 1-10 Ipratropium [place] (Ipratropium [place] 0.06% Nasal [place]) 2 spray NASAL BID [facility] Last Admin: 01/06/21 21:35 Dose: 2 spray Documented by: Ketorolac Tromethamine (Ketorolac 15 Mg/Ml Vial) 15 mg IV Q6H PRN PRN PRN Reason: PAIN 1-10 Stop: 01/08/21 13:04 Last Admin: 01/06/21 21:33 Dose: 15 mg Documented by: Loratadine (Loratadine 10 Mg Tablet) 10 mg PO DAILY [facility] Magnesium Chloride (Magnesium Chloride 64 Mg Delay Rel.Tablet) 128 mg PO QHS [facility] Last Admin: 01/06/21 21:40 Dose: 128 mg Documented by: Metoclopramide HCl (Metoclopramide 10 Mg/2 Ml Vial) 10 mg IV Q8H PRN PRN PRN Reason: Nausea/vomiting Ondansetron HCl (Ondansetron 4 Mg/2 Ml Vial) 4 mg IV Q8H PRN PRN Reason: Nausea Oxycodone HCl (Oxycodone 5 Mg Tablet) 5 mg PO Q4H PRN PRN PRN Reason: PAIN 1-10 Pantoprazole Sodium (Pantoprazole Sodium 40 Mg Tablet) 40 mg PO DAILY [facility] Phenytoin Sodium (Phenytoin Na 100 Mg Capsule) 100 mg PO TIDCM [facility] Last Admin: 01/07/21 07:48 Dose: 100 mg Documented by: Sodium Chloride (0.9% Saline Lock 10 Ml Syringe) 10 - 40 ml IV UD PRN PRN Reason: SALINE FLUSH Tolterodine Tartrate (Tolterodine Tartrate 4 Mg Cap.Sa) 4 mg PO DAILY PRN PRN PRN Reason: Spasms Triamcinolone Acetonide (Triamcinolone 0.5% Cream) 1 applic TOPICAL DAILY PRN PRN PRN Reason: SKIN IRRITATION STROKE Vital Signs/Narrative: Vital Signs Pulse 01/07/21 05:59 69 Medical Necessity - Tobacco Use Smoking Status: Never smoker Tobacco Use: Non-smoker Assessment/Plan All Active Problems BPH with obstruction/lower urinary tract symptoms (Acute) Patient is a 71-year-old gentleman who underwent TURP on 01/06/[address] Hampton. Patient did experience postop syncope with systolic blood pressure dropping to 7949 with bradycardia with heart rate in the low 40s. The hospitalist service was subsequently consulted to assist with management of patient medical comorbidities 1. Syncopal episode ? secondary to orthostatic hypotension, resuscitated with IV fluids subsequently placed on continuous telemetry monitoring. Serial cardiac enzymes obtained negative to date 2. BPH obstructive uropathy ?Status post transurethral as section of the prostate on 01/06/[address] Jeter 2. Seizure disorder ?Did continue with patient antiseizure medications 4. GERD ?On PPI 5. Mild hyponatremia ?Managed with IV fluid with subsequent monitoring of electrolytes 6. DVT prophylaxis SCDs for now, deferred chemoprophylaxis to urology due to patient recent TURP Inpatient E&M: 22574 Subs Hosp L2
[2021-01-07 08:38] LABS: Absolute Lymphocyte Count 0.74 X10^3/uL (0.83-4.51); Absolute Neutrophil Count 6.8 X10^3/uL (2.0-7.7); Basophil# 0.03 X10^3/uL; Basophil% 0.4 % (0-1); Eosinophil# 0.06 X10^3/uL; Eosinophils% 0.7 % (0-5); Hematocrit 40.4 % (40-54); Hemoglobin 13.3 g/dL (13.0-16.5); Lymphocyte # 0.74 X10^3/ul (4.0); Lymphocyte % 8.7 % (19-41); Mean Corp Hgb Conc 32.9 g/dL (32-36); Mean Corpuscular Hgb 29.6 pg (27.0-32.0); Mean Corpuscular Volume 89.8 fL (80-94); Monocyte# 0.89 X10^3/uL; Monocyte% 10.4 % (0-10); NRBC Flagged by Analyzer 0 % (0-5); Neutrophil # 6.78 X10^3/uL (2.7-7.7); Neutrophil % 79.3 % (47-70); Platelet Count 297 K/mm3 (150-450); RBC Distribution Width CV 13.2 % (11.6-14.6); RBC Distribution Width SD 43.6 fl (35.1-43.9); White Blood Count 8.5 K/mm3 (4.4-11.0)
[2021-01-07 08:59] LABS: ALB/GLOB Ratio 1.2 RATIO (0.9-2.4); AST(SGOT) 16 U/L (15-37); Alanine Aminotransfer ALT/SGPT 23 U/L (16-61); Albumin, Serum 3.3 g/dL (3.2-5.0); Alkaline Phosphatase 74 U/L (45-117); Anion Gap 5 (5-15); BUN 8 mg/dL (7-18); BUN/Creat Ratio 10.5 RATIO (10-20); Calcium,Total 8.3 mg/dL (8.5-10.1); Chloride 100 mmol/L (98-107); Creatinine, Serum 0.76 mg/dL (0.70-1.30); EST Glomerular Filtration Rate 107 mL/min (>60); Est Glom Filt Rate - Afr Amer 129 mL/min (>60); Estimated Creatinine Clearance 60.26 ml/min; Globulin 2.7 g/dL (2.2-4.2); Glucose 104 mg/dL (74-106); Potassium 3.6 mmol/L (3.5-5.1); Sodium Level 133 mmol/L (136-145)
[2021-01-07] MEDS: Ciprofloxacin 400 MG/200 ML BAG 200 MG IV (10:20)
[2021-01-07] MEDS: Ipratropium Bromide 0.06% NASAL SPRAY 2 SPRAY NASAL (10:20)
[2021-01-07] MEDS: Pantoprazole Sodium 40 MG Tablet PO (10:21)
[2021-01-07] MEDS: Docusate Sodium 100 MG Capsule PO (10:21)
[2021-01-07] MEDS: Loratadine 10 MG Tablet PO (10:21)
== END 2021-01-07 17:30 | disposition home or self-care (01) ==
LOC: SDC 08:51 → AC 08:51 → MS3 13:17
PROVIDERS: Anesthesiology; Family Medicine; PCP Family Medicine; Referring Provider Urology; Visit Provider Internal Medicine
PROC: (CPT 52630; principal; 2021-01-06 11:00)
DX: N40.1 Benign prostatic hyperplasia with lower urinary tract symptoms (principal); N41.1 Chronic prostatitis; N13.8 Other obstructive and reflux uropathy; K21.9 Gastro-esophageal reflux disease without esophagitis; G40.909 Epilepsy, unspecified, not intractable, without status epilepticus; J30.9 Allergic rhinitis, unspecified; I95.1 Orthostatic hypotension; E87.1 Hypo-osmolality and hyponatremia; M54.5 Low back pain; R00.1 Bradycardia, unspecified; R55 Syncope and collapse
CPT/HCPCS: 52630; 36415; 80048; 80053; 80185; 83735; 84484; 85025; 85027; 85730; 87426; 88305; 93005; 99251; C9803; J7120; G0463; J0744

== ENCOUNTER → 2021-07-26 07:15 | Outpatient (CLI) | payer MEDICARE, OTHER, SELFPAY ==
[2021-07-26 10:25] LABS: Absolute Lymphocyte Count 0.94 X10^3/uL (0.83-4.51); Absolute Neutrophil Count 1.5 X10^3/uL (2.0-7.7); Basophil# 0.04 X10^3/uL; Basophil% 1.2 % (0-1); Eosinophil# 0.28 X10^3/uL; Eosinophils% 8.4 % (0-5); Hematocrit 42.6 % (40-54); Lymphocyte # 0.94 X10^3/ul (0.83-4.51); Lymphocyte % 28.1 % (19-41); Mean Corp Hgb Conc 32.9 g/dL (32-36); Mean Corpuscular Hgb 29.5 pg (27.0-32.0); Mean Corpuscular Volume 89.9 fL (80-94); Mean Platelet Vol. 9.2 fl (6.2-12.0); Monocyte# 0.57 X10^3/uL; NRBC Flagged by Analyzer 0 % (0-5); Neutrophil # 1.51 X10^3/uL (2.7-7.7); Platelet Count 330 K/mm3 (150-450); RBC Distribution Width CV 13.6 % (11.6-14.6); RBC Distribution Width SD 45.1 fl (35.1-43.9); Red Blood Count 4.74 M/mm3 (4.6-6.2); White Blood Count 3.4 K/mm3 (4.4-11.0)
[2021-07-26 10:39] LABS: Vitamin B12 758 pg/mL (211-911); Vitamin D,25 Hydroxy 27.9 ng/mL
[2021-07-26 10:49] LABS: ALB/GLOB Ratio 1.2 RATIO (0.9-2.4); AST(SGOT) 16 U/L (15-37); Alanine Aminotransfer ALT/SGPT 26 U/L (16-61); Albumin, Serum 3.5 g/dL (3.2-5.0); Alkaline Phosphatase 76 U/L (45-117); Anion Gap 7 (5-15); BUN 9 mg/dL (7-18); BUN/Creat Ratio 12.8 RATIO (10-20); Calcium,Total 8.6 mg/dL (8.5-10.1); Chloride 102 mmol/L (98-107); Cholesterol 185 mg/dL (200); EST Glomerular Filtration Rate 116 mL/min (>60); Est Glom Filt Rate - Afr Amer 141 mL/min (>60); Glucose 93 mg/dL (74-106); High Density Lipoprotein 72 mg/dL; PSA,Total- Diagnostic 1.48 ng/mL (0.0-4.0); Potassium 3.8 mmol/L (3.5-5.1); Protein, Total 6.5 g/dL (6.4-8.2); Sodium Level 138 mmol/L (136-145); Triglycerides 56 mg/dL; Very Low Density Lipoprotein 11 mg/dL (5-40)
== END ==
PROVIDERS: PCP Family Medicine; Referring Provider Family Medicine; Visit Provider Family Medicine
DX: Z00.00 Encounter for general adult medical examination without abnormal findings (principal); E55.9 Vitamin D deficiency, unspecified; E53.8 Deficiency of other specified B group vitamins; G40.909 Epilepsy, unspecified, not intractable, without status epilepticus
CPT/HCPCS: 36415; 80053; 80061; 82306; 82607; 82746; 84153; 85025

== ENCOUNTER 2022-02-10 06:21 | Emergency (ER) | payer MEDICARE, OTHER, SELFPAY ==
[2022-02-10 06:22] VITALS: BP 126/83; PULSE 65; RESP 19; TEMP 36.7; O2SAT 98; BMI 24.2
--- NOTE | 2022-02-10 06:34 | CT_ITS ---
STUDY: CT ABDOMEN AND PELVIS WITH CONTRAST REASON FOR EXAM: Male, 71 years old. generalized abd pain RADIATION DOSAGE (If Supplied By Facility): CTDIvol = ( 14.27 ) mGy, DLP = ( 453.41 ) mGycm TECHNIQUE: Transaxial images were obtained from the dome of the diaphragm to the symphysis pubis without oral contrast. IV 100mL Isovue-300 was administered. Sagittal and coronal images were reconstructed. Individualized dose optimization techniques were used for this CT. COMPARISON: None. FINDINGS: The visualized lung bases are unremarkable. The visualized portions of the heart are within normal limits. Normal liver. Normal gallbladder and extrahepatic biliary system. Normal spleen. Normal pancreas. Normal bilateral adrenal glands. 6 cm exophytic cyst of the upper pole the right kidney. Normal left kidney. Normal visualized stomach. Some prominent fluid-filled loops of small bowel in the middle the abdomen with some adjacent stranding of the mesenteric fat likely consistent with gastroenteritis. Normal colon. The appendix is visualized and appears normal. There is diffuse atherosclerotic calcification of the abdominal aorta, without a demonstrated aneurysm. Normal inferior vena cava. Normal retroperitoneum. Moderate bladder distention. There is enlargement of the prostate gland. Normal abdominal wall. Mild levoscoliosis of the lumbar spine with degenerative disc disease. CT/Abdomen/Pelvis W IV Cont ONLY IMPRESSION: 1. Suspect gastroenteritis. 2. Enlarged prostate with the moderate bladder distention. Electronically Signed: Pankaj Lackey MD at 8:30 EDT ,
--- NOTE | 2022-02-10 06:35 | EKG12_ITS ---
Test Reason : ABD PAIN Blood Pressure : / mmHG Vent. Rate : 061 BPM Atrial Rate : 061 BPM P-R Int : 150 ms QRS Dur : 098 ms QT Int : 486 ms P-R-T Axes : 073 027 043 degrees QTc Int : 489 ms Normal sinus rhythm Low voltage QRS (Limb Leads) Prolonged QT Abnormal ECG Confirmed by HERBERT QUIROZ, KEDAR ([id number]), image editor SUDHIR CASTILLO ([id number]) on 02/12/2022 12:52:55 PM Referred By: JONATHAN Confirmed By:KEDAR GODINEZ MD
--- NOTE | 2022-02-10 06:36 | EDS_ITS ---
HPI HPI - GI History of Present Illness Chief Complaint: Abd Pain Informant: patient Abdominal Pain/Flank Pain Onset: Hours (1.5) Context: Sudden Onset (Upon waking up) Timing: Continuous Quality: Aching Location: - (Periumbilical) Current Severity: Moderate Maximum Severity: Moderate Worsened by: Nothing Relieved by: Nothing Nausea/Vomiting/Emesis GI Symptom: Negative for Nausea and Vomiting Diarrhea/Melena/Hematochezia GI Symptom: Negative for Diarrhea, Melena and Hematochezia Associated Symptoms Associated Symptoms: Negative for Dysuria, Frequency, Hematuria and Urgency Narrative Narrative: Patient woke up this morning with periumbilical abdominal pain that has not migrated or radiated anywhere else. No chest discomfort or shortness of breath. States he woke up with it, went to the bathroom and upon urinating the pain gradually got worse although he did not have dysuria, he felt lightheaded in the process similar to an episode months ago where he was in the bathroom and felt nauseated and lightheaded. The abdominal pain, however, is new. He has a hiatal hernia, but no other GI issues that he knows of and has never had any abdominal surgeries. [facility] Medical History BPH with obstruction/lower urinary tract symptoms GERD (gastroesophageal reflux disease) History of seizure Seasonal allergies Home Medications calcium citrate-vitamin D3 1 ea PO TID 08/23/19 [History Last Taken Unknown] chlorpheniramine maleate [Allergy-Time] 4 mg PO QHS 08/23/19 [History Last Taken Unknown] fluticasone propionate 4 spray NASAL QHS 08/23/19 [History Last Taken Unknown] levocetirizine [Xyzal] 5 mg PO DAILY 08/23/19 [History Last Taken Unknown] magnesium oxide 250 mg PO QHS 08/23/19 [History Last Taken Unknown] mometasone 15 gm TP DAILY PRN PRN 08/23/19 [History Last Taken Unknown] phenytoin sodium extended 100 mg PO TID 08/23/19 [History Last Taken 01/06/21 0700] apple cider vinegar 600 mg PO TID 12/30/20 [History Last Taken Unknown] cholecalciferol (vitamin D3) 1,000 unit PO DAILY 12/30/20 [History Last Taken Unknown] ipratropium bromide 15 ml NS BID 12/30/20 [History Last Taken Unknown] pantoprazole 40 mg PO DAILY 12/30/20 [History Last Taken 01/06/21 0600] ibuprofen 600 mg PO Q6H PRN PRN #14 tab 01/06/21 [Rx Last Taken Unknown] potassium chloride 20 meq PO BID #8 tab 02/10/22 [Rx Last Taken Unknown] Allergy/AdvReac Type Severity Reaction Status Date / Time No Known Allergies Allergy Verified 02/10/22 06:25 Surgical History unable to obtain unable to obtain (States he had a surgery in his chest as a child but unsure what it was) Social History Smoking Status: Never smoker ROS ROS ED Constitutional Constitutional ED: Denies chills or fever(s) Eyes Eyes: Denies change in vision or diplopia ENT ENT ED: Denies rhinorrhea or sore throat Cardiovascular Cardiovascular: Reports lightheadedness; Denies chest pain or palpitations Respiratory/Chest Respiratory/Chest: Denies cough or dyspnea Gastrointestinal Gastrointestinal: Reports abdominal pain; Denies diarrhea, melena, nausea, rectal bleeding or vomiting Genitourinary Genitourinary ED: Denies dysuria or hematuria Musculoskeletal Musculoskeletal: Denies back pain or neck pain Integumentary Denies abscess or rash Neurologic Neurologic: Denies headache(s), paresthesias or weakness Psychiatric Psychiatric: Denies anxiety or suicidal thoughts EXAM Physical Exam Const Vital Signs: 02/10/22 06:22 02/10/22 08:26 Temperature 98.1 F Temperature Source Temporal Pulse Rate 65 59 L Respiratory Rate 19 H 14 Blood Pressure 126/83 H 151/76 H Blood Pressure Mean 97 101 Pulse Ox 98 100 Oxygen Delivery Method Room Air Room Air Positive well nourished and well developed General Appearance ED: well developed and NAD HEENT Reports moist mucous membranes normocephalic and atraumatic Eyes PERRL and EOMs intact bilaterally Neck full ROM and supple Resp normal respiratory effort and clear to auscultation bilaterally Cardio regular rate, regular rhythm and no murmurs Rate: Negative for tachycardic GI non-distended GI Narrative: Mild epigastric and right upper quadrant, periumbilical tenderness, but moderate-severe tenderness within umbilicus. Possible very small hernia palpable here but it feels reducible although it does not improve the patient's pain, it makes it worse. On gross inspection, his umbilicus is normal-appearing without an obvious hernia or erythema. No guarding or rebound tenderness. Auscultation: normoactive bowel sounds Palpation: soft Back/Spine no CVA tenderness General Back: other FROM Extremity normal to inspection General Extremety ED: Negative for edema, pulses abnormal or tenderness General Extremity: Negative for edema or pulses abnormal Neuro oriented x3, CN's II-XII intact bilaterally and no sensory deficits noted Sensorium / Orientation: awake and alert Motor Exam: strength 5/5 throughout Skin no rashes or lesions noted and no wounds MDM MDM MDM Narrative Medical decision making narrative: Labs and CT obtained to evaluate for possible incarcerated hernia, bowel obstruction, early appendicitis, and/or other pathology. Labs show significant hypokalemia, replacement begun. Patient was little improved after morphine but still was having pain, the CT showed scattered air-fluid levels and was fairly unremarkable except for an incidentally found right exophytic renal cyst, and his bladder is distended. Patient had already urinated when I reevaluated and upon results of the CT, and he did not feel any better after that. He states at this time that he now remembers that the pain initially felt like it was down closer to his groin and it is doing that again but he points to both sides. He does not appear to have any ureterolithiasis or hydronephrosis on the CT. when discussing the fact that he did just urinate, he only urinated very little and then felt like he was unable to urinate anymore. On CT has bladder is extremely full/distended. Given this information I am suspicious that urinary retention is the cause of his pain, although the patient did not say anything about having trouble urinating even after I asked him specifically this morning. We placed a Lopes catheter, over a liter of urine was removed and the patient felt much better and was discharged home with a leg bag. He had a TURP by Dr. Jeter in the past so he can follow-up with him after the weekend. No sign of infection on his urinalysis. Lab Data Attestation: I reviewed the patient's lab results. Labs: Laboratory Results - last 24 hr 02/10/22 02/10/22 02/10/22 06:10 06:10 07:50 WBC 6.0 RBC 4.82 Hgb 13.8 Hct 41.9 MCV 86.9 MCH 28.6 MCHC 32.9 RDW Std Deviation 44.5 H RDW Coeff of Joey 13.8 Plt Count 311 MPV 8.6 Immature Gran % (Auto) 0.200 Neut % (Auto) 33.7 L Lymph % (Auto) 41.0 [place] % (Auto) 16.8 H Eos % (Auto) 6.8 H Baso % (Auto) 1.5 H Absolute Neuts (auto) 2.0 Absolute Lymphs (auto) 2.46 Nucleated RBC % 0 Sodium 137 Potassium 2.9 L Chloride 102 Carbon Dioxide 25.0 Anion Gap 10 BUN 14 Creatinine 0.93 Estim Creat Clear Calc 63.84 Est GFR (MDRD) Af Amer 103 Est GFR (MDRD) Non-Af 85 BUN/Creatinine Ratio 15.1 Glucose 164 H Calcium 8.6 Total Bilirubin 0.20 AST 16 ALT 28 Alkaline Phosphatase 73 Troponin I High Sens 8 Total Protein 6.4 Albumin 3.5 Globulin 2.9 Albumin/Globulin Ratio 1.2 Lipase 146 Urine Color Yellow Urine Clarity Clear Urine pH 8.0 Ur Specific [place] 1.015 Urine Protein Negative Urine Glucose (UA) 100 H Urine Ketones 15 H Urine Occult Blood Negative Urine Nitrite Negative Urine Bilirubin Negative Urine Urobilinogen Normal Ur Leukocyte Esterase Negative Urine RBC 0 SEEN Urine WBC 0 SEEN Ur Squamous Epith Cells 0 SEEN Urine Bacteria 0 SEEN Urine Mucus 0 SEEN Radiography Diagnostic Testing: Clinical Impression(s) from Imaging Studies Abdomen/Pelvis CT 02/10/22 06:34 IMPRESSION: 1. Suspect gastroenteritis. 2. Enlarged prostate with the moderate bladder distention. Electronically Signed: Pankaj Lackey MD at 8:30 EDT , EKG Initial EKG: Attestation: I personally reviewed and interpreted this EKG as follows: Interpretation: Sinus Rhythm and No Acute Injury Pattern Discharge Plan Triage Chief Complaint: Abd Pain ED Provider: Davidson Muñoz Dx/Rx/DC Orders Clinical Impression: Acute urinary retention, Abdominal pain, diffuse, Hypokalemia Instructions: ED Hypokalemia, ED Urinary Retention, Male Prescriptions: New potassium chloride 20 mEq tablet extended release 20 meq PO BID Qty: 8 RF: 0 No Action chlorpheniramine maleate [Allergy-Time] 4 MG tablet 4 mg PO QHS RF: 0 phenytoin sodium extended 100 MG capsule 100 mg PO TID RF: 0 mometasone 15 GM ointment 15 gm TP DAILY PRN PRN (Reason: skin) RF: 0 fluticasone propionate 1 SPRAY spray,suspension 4 spray NASAL QHS RF: 0 magnesium oxide 250 MG tablet 250 mg PO QHS RF: 0 calcium citrate-vitamin D3 1 EACH tablet 1 ea PO TID RF: 0 levocetirizine [Xyzal] 5 MG tablet 5 mg PO DAILY RF: 0 apple cider vinegar 600 MG capsule 600 mg PO TID RF: 0 pantoprazole 40 MG tablet 40 mg PO DAILY RF: 0 ipratropium bromide 15 ML spray,non-aerosol 15 ml NS BID RF: 0 cholecalciferol (vitamin D3) 1,000 UNIT tablet 1,000 unit PO DAILY RF: 0 ibuprofen 600 MG tablet 600 mg PO Q6H PRN PRN (Reason: pain) Qty: 14 RF: 0 Primary Care Provider: Julio Rene Referrals: Julio Rene MD [Primary Care Provider] - Mahesh Jeter MD [STAFF PHYSICIAN] - (this coming week -- call for appt) Disposition Disposition: Home, Self Care
[2022-02-10] MEDS: 0.9% Normal Saline 1,000 ML 125 ML IV (06:42)
[2022-02-10] MEDS: Morphine 4 MG/ML Syringe IV (06:42)
[2022-02-10] MEDS: Ondansetron 4 MG/2 ML Vial IV (06:42)
[2022-02-10 06:44] LABS: Absolute Lymphocyte Count 2.46 X10^3/uL (0.83-4.51); Basophil# 0.09 X10^3/uL; Basophil% 1.5 % (0-1); Eosinophil# 0.41 X10^3/uL; Eosinophils% 6.8 % (0-5); Hematocrit 41.9 % (40-54); Hemoglobin 13.8 g/dL (13.0-16.5); Lymphocyte # 2.46 X10^3/ul (0.83-4.51); Mean Corp Hgb Conc 32.9 g/dL (32-36); Mean Corpuscular Hgb 28.6 pg (27.0-32.0); Mean Corpuscular Volume 86.9 fL (80-94); Mean Platelet Vol. 8.6 fl (6.2-12.0); Monocyte# 1.01 X10^3/uL; Monocyte% 16.8 % (0-10); NRBC Flagged by Analyzer 0 % (0-5); Neutrophil # 2.02 X10^3/uL (2.7-7.7); Neutrophil % 33.7 % (47-70); Platelet Count 311 K/mm3 (150-450); RBC Distribution Width CV 13.8 % (11.6-14.6); RBC Distribution Width SD 44.5 fl (35.1-43.9); Red Blood Count 4.82 M/mm3 (4.6-6.2)
[2022-02-10 07:02] LABS: ALB/GLOB Ratio 1.2 RATIO (0.9-2.4); AST(SGOT) 16 U/L (15-37); Alanine Aminotransfer ALT/SGPT 28 U/L (16-61); Albumin, Serum 3.5 g/dL (3.2-5.0); Alkaline Phosphatase 73 U/L (45-117); Anion Gap 10 (5-15); BUN 14 mg/dL (7-18); BUN/Creat Ratio 15.1 RATIO (10-20); Calcium,Total 8.6 mg/dL (8.5-10.1); Chloride 102 mmol/L (98-107); Creatinine, Serum 0.93 mg/dL (0.70-1.30); EST Glomerular Filtration Rate 85 mL/min (>60); Est Glom Filt Rate - Afr Amer 103 mL/min (>60); Estimated Creatinine Clearance 63.84 ml/min; Globulin 2.9 g/dL (2.2-4.2); Glucose 164 mg/dL (74-106); Lipase 146 U/L (73-393); Potassium 2.9 mmol/L (3.5-5.1); Protein, Total 6.4 g/dL (6.4-8.2); Sodium Level 137 mmol/L (136-145); Troponin-I HS 8 pg/mL (3.0-78.0)
[2022-02-10 07:51] LABS: Bacteria 0 SEEN /hpf (None Seen); Mucous, Urine 0 SEEN /hpf (<or=2+); Red Blood Cells-Urine 0 SEEN /hpf (0-5); Squamous Epithelial Cells - UA 0 SEEN /hpf (0-5); White Blood Cells 0 SEEN /hpf (0-5)
[2022-02-10 07:53] LABS: Color, Urine Yellow (Yellow); Glucose, Dipstick 100 mg/dl (Normal); Ketone-Dipstick 15 mg/dl (Negative); Leukocyte Esterase-Dipstick Negative /ul (Negative); Nitrite-Dipstick Negative (Negative); Occult Blood-Urine Negative /ul (Negative); Protein-Dipstick Negative (Negative); Specific Gravity, Urine 1.015 (1.002-1.030); Urine Bilirubin Dipstick Negative (Negative); Urine Clarity Clear (Clear); Urine Urobilinogen Normal (Normal)
[2022-02-10 08:26] VITALS: BP 151/76; PULSE 59; RESP 14; O2SAT 100
[2022-02-10] MEDS: Potassium Chloride 10mEq/100mL 10 MEQ/100 ML IV.SOLN. 100 MEQ IV BOLUS (08:26)
[2022-02-10] MEDS: Lidocaine Jelly 2% 20 ML Syringe (URO-JET) 1 APPLIC TOPICAL (08:50)
[2022-02-10 10:09] VITALS: BP 124/74; PULSE 60; RESP 12; O2SAT 100
[2022-02-10] MEDS: HYDROcodone Bitartrate/Apap 5/325 Tablet PO (10:11)
== END 2022-02-10 10:45 | disposition home or self-care (01) ==
PROVIDERS: Emergency Provider Emergency Medicine; PCP Family Medicine; Visit Provider Emergency Medicine
DX: R33.9 Retention of urine, unspecified (principal); R30.9 Painful micturition, unspecified; E87.6 Hypokalemia; R11.2 Nausea with vomiting, unspecified; K44.9 Diaphragmatic hernia without obstruction or gangrene; N23 Unspecified renal colic
CPT/HCPCS: 51702; 74177; 80053; 81001; 83690; 84484; 85025; 93005; 99285; J7030; J7050; Q9967; J2405

== ENCOUNTER → 2022-02-13 | Outpatient (CLI) | payer MEDICARE, OTHER, SELFPAY ==
[2022-02-13 15:47] LABS: AST(SGOT) 34 U/L (15-37); Alanine Aminotransfer ALT/SGPT 31 U/L (16-61); Albumin, Serum 3.2 g/dL (3.2-5.0); Alkaline Phosphatase 65 U/L (45-117); Anion Gap 7 (5-15); BUN 25 mg/dL (7-18); BUN/Creat Ratio 29.4 RATIO (10-20); Calcium,Total 8.4 mg/dL (8.5-10.1); Chloride 103 mmol/L (98-107); Creatinine, Serum 0.85 mg/dL (0.70-1.30); EST Glomerular Filtration Rate 94 mL/min (>60); Est Glom Filt Rate - Afr Amer 113 mL/min (>60); Globulin 3.2 g/dL (2.2-4.2); Glucose 110 mg/dL (74-106); Magnesium 2.5 mg/dL (1.6-2.6); Potassium 3.9 mmol/L (3.5-5.1); Protein, Total 6.4 g/dL (6.4-8.2); Sodium Level 137 mmol/L (136-145)
== END | disposition home or self-care (01) ==
LOC: MFPLAB 13:34
PROVIDERS: PCP Family Medicine; Visit Provider Family Medicine
DX: K56.0 Paralytic ileus (principal); E87.6 Hypokalemia
CPT/HCPCS: 36415; 80053; 83735

== ENCOUNTER → 2022-03-14 | Outpatient (CLI) | payer MEDICARE, OTHER, SELFPAY | END | disposition home or self-care (01) | LOC: MFPLAB 15:22 | PROVIDERS: PCP Family Medicine; Referring Provider Family Medicine; Visit Provider Family Medicine | DX: E87.6 Hypokalemia (principal) | CPT/HCPCS: 36415; 84132 ==

== ENCOUNTER → 2022-04-27 | Outpatient (CLI) | payer MEDICARE, OTHER, SELFPAY ==
[2022-04-27 10:26] LABS: Phenytoin (Dilantin) Level 16.8 mL (10.0-20.0)
[2022-04-27 10:30] LABS: ALB/GLOB Ratio 1.2 RATIO (0.9-2.4); AST(SGOT) 17 U/L (15-37); Alanine Aminotransfer ALT/SGPT 20 U/L (16-61); Albumin, Serum 3.5 g/dL (3.2-5.0); Alkaline Phosphatase 100 U/L (45-117); Anion Gap 6 (5-15); BUN 7 mg/dL (7-18); BUN/Creat Ratio 9.1 RATIO (10-20); Calcium,Total 8.8 mg/dL (8.5-10.1); Chloride 103 mmol/L (98-107); Creatinine, Serum 0.77 mg/dL (0.70-1.30); EST Glomerular Filtration Rate 105 mL/min (>60); Est Glom Filt Rate - Afr Amer 127 mL/min (>60); Globulin 2.9 g/dL (2.2-4.2); Glucose 92 mg/dL (74-106); Potassium 3.9 mmol/L (3.5-5.1); Protein, Total 6.4 g/dL (6.4-8.2); Sodium Level 138 mmol/L (136-145)
== END | disposition home or self-care (01) ==
LOC: MTLAB 07:27
PROVIDERS: PCP Family Medicine; Referring Provider Family Medicine; Visit Provider Family Medicine
DX: G40.909 Epilepsy, unspecified, not intractable, without status epilepticus (principal)
CPT/HCPCS: 36415; 80053; 80185

== ENCOUNTER → 2022-08-01 | Outpatient (CLI) | payer MEDICARE, OTHER, SELFPAY ==
[2022-08-01 14:49] LABS: Vitamin B12 366 pg/mL (211-911)
== END | disposition home or self-care (01) ==
PROVIDERS: PCP Family Medicine; Referring Provider Family Medicine; Visit Provider Nurse Practitioner Family
DX: E55.9 Vitamin D deficiency, unspecified (principal); G40.909 Epilepsy, unspecified, not intractable, without status epilepticus; E53.8 Deficiency of other specified B group vitamins
CPT/HCPCS: 36415; 82306; 82607

== ENCOUNTER 2022-08-03 08:27 | Outpatient (RCR) | payer MEDICARE, OTHER, SELFPAY ==
--- NOTE | 2022-09-27 06:56 | HP.PT.NRP ---
MAUREEN RUSHING was seen in my office for initial evaluation on 08/03/22. The following Plan of Care was established for this patient: This patient was last seen in our office . Pertinent comments regarding their Physical therapy will appear below: Patient is Indep with HEP- Patient has not attended physical therapy in over 30 days- appropriate to be discharged and return to the MD as needed. At this point I will be discontinuing this patient from physical therapy. I would be happy to see this patient again in the future if found appropriate by the physician. Thank you! Flavia Hernandez, LIZANDROT
== END 2022-08-03 19:00 | disposition home or self-care (01) ==
LOC: PT 08:27
PROVIDERS: PCP Family Medicine; Referring Provider Nurse Practitioner Family; Visit Provider Nurse Practitioner Family
DX: M54.2 Cervicalgia (principal)
CPT/HCPCS: 97162

== ENCOUNTER → 2023-02-08 | Outpatient (CLI) | payer MEDICARE, OTHER, SELFPAY ==
[2023-02-08 12:29] LABS: Absolute Lymphocyte Count 1.07 X10^3/uL (0.83-4.51); Absolute Neutrophil Count 2.4 X10^3/uL (2.0-7.7); Basophil# 0.06 X10^3/uL; Basophil% 1.3 % (0-1); Eosinophil# 0.33 X10^3/uL; Eosinophils% 7.2 % (0-5); Hematocrit 42.6 % (40-54); Hemoglobin 13.8 g/dL (13.0-16.5); Lymphocyte # 1.07 X10^3/ul (0.83-4.51); Lymphocyte % 23.2 % (19-41); Mean Corp Hgb Conc 32.4 g/dL (32-36); Mean Corpuscular Hgb 29.5 pg (27.0-32.0); Mean Platelet Vol. 9.1 fl (6.2-12.0); Monocyte# 0.77 X10^3/uL; Monocyte% 16.7 % (0-10); NRBC Flagged by Analyzer 0 % (0-5); Neutrophil # 2.38 X10^3/uL (2.7-7.7); Neutrophil % 51.6 % (47-70); Platelet Count 325 K/mm3 (150-450); RBC Distribution Width CV 14.6 % (11.6-14.6); RBC Distribution Width SD 48.5 fl (35.1-43.9); Red Blood Count 4.68 M/mm3 (4.6-6.2); White Blood Count 4.6 K/mm3 (4.4-11.0)
[2023-02-08 12:53] LABS: Phenytoin (Dilantin) Level 14.9 mL (10.0-20.0)
[2023-02-08 13:00] LABS: Vitamin B12 380 pg/mL (211-911); Vitamin D,25 Hydroxy 29.9 ng/mL
[2023-02-08 13:28] LABS: ALB/GLOB Ratio 1.1 RATIO (0.9-2.4); AST(SGOT) 20 U/L (15-37); Alanine Aminotransfer ALT/SGPT 27 U/L (16-61); Albumin, Serum 3.5 g/dL (3.2-5.0); Alkaline Phosphatase 102 U/L (45-117); Anion Gap 3 (5-15); BUN 10 mg/dL (7-18); BUN/Creat Ratio 11.7 RATIO (10-20); Calcium,Total 8.8 mg/dL (8.5-10.1); Chloride 103 mmol/L (98-107); Creatinine, Serum 0.85 mg/dL (0.70-1.30); EST Glomerular Filtration Rate 93 mL/min (>60); Est Glom Filt Rate - Afr Amer 113 mL/min (>60); Globulin 3.1 g/dL (2.2-4.2); Glucose 101 mg/dL (74-106); Potassium 3.9 mmol/L (3.5-5.1); Protein, Total 6.6 g/dL (6.4-8.2); Sodium Level 135 mmol/L (136-145)
== END | disposition home or self-care (01) ==
LOC: MFPLAB 10:55
PROVIDERS: PCP Family Medicine; Visit Provider Family Medicine
DX: E55.9 Vitamin D deficiency, unspecified (principal); G40.909 Epilepsy, unspecified, not intractable, without status epilepticus; E53.8 Deficiency of other specified B group vitamins
CPT/HCPCS: 36415; 80053; 80185; 82306; 82607; 82746; 85025

== ENCOUNTER → 2023-05-15 | Outpatient (CLI) | payer MEDICARE, OTHER, SELFPAY ==
[2023-05-15 12:29] LABS: Absolute Lymphocyte Count 1.03 X10^3/uL (0.83-4.51); Absolute Neutrophil Count 1.9 X10^3/uL (2.0-7.7); Basophil# 0.06 X10^3/uL; Basophil% 1.5 % (0-1); Eosinophils% 5.1 % (0-5); Hematocrit 43.3 % (40-54); Hemoglobin 14.2 g/dL (13.0-16.5); Lymphocyte # 1.03 X10^3/ul (0.83-4.51); Lymphocyte % 26.1 % (19-41); Mean Corp Hgb Conc 32.8 g/dL (32-36); Mean Corpuscular Hgb 29.6 pg (27.0-32.0); Mean Corpuscular Volume 90.4 fL (80-94); Mean Platelet Vol. 8.9 fl (6.2-12.0); Monocyte# 0.72 X10^3/uL; Monocyte% 18.3 % (0-10); NRBC Flagged by Analyzer 0 % (0-5); Neutrophil # 1.92 X10^3/uL (2.7-7.7); Neutrophil % 48.7 % (47-70); Platelet Count 280 K/mm3 (150-450); RBC Distribution Width CV 14.1 % (11.6-14.6); RBC Distribution Width SD 46.7 fl (35.1-43.9); Red Blood Count 4.79 M/mm3 (4.6-6.2); White Blood Count 3.9 K/mm3 (4.4-11.0)
[2023-05-15 12:50] LABS: Anion Gap 7 (5-15); BUN 8 mg/dL (7-18); BUN/Creat Ratio 9.5 RATIO (10-20); Calcium,Total 8.7 mg/dL (8.5-10.1); Chloride 98 mmol/L (98-107); Creatinine, Serum 0.84 mg/dL (0.70-1.30); EST Glomerular Filtration Rate 94 mL/min (>60); Est Glom Filt Rate - Afr Amer 114 mL/min (>60); Glucose 94 mg/dL (74-106); Sodium Level 134 mmol/L (136-145)
[2023-05-15 13:10] LABS: Phenytoin (Dilantin) Level 19.2 mL (10.0-20.0)
[2023-05-15 13:14] LABS: Vitamin D,25 Hydroxy 33.7 ng/mL
== END | disposition home or self-care (01) ==
LOC: MFPLAB 10:48
PROVIDERS: PCP Family Medicine; Visit Provider Family Medicine
DX: E55.9 Vitamin D deficiency, unspecified (principal); G40.909 Epilepsy, unspecified, not intractable, without status epilepticus
CPT/HCPCS: 36415; 80048; 80185; 82306; 85025

== ENCOUNTER 2023-05-24 09:45 | Outpatient (RCR) | payer MEDICARE, OTHER, SELFPAY ==
--- NOTE | 2023-05-24 10:30 | HP.PTEVAL ---
Patient's Visit Information Visit Information Visit Information: MAUREEN RUSHING is a 73 year old M referred to Physical Therapy by Dr. Julio Rene MD with a diagnosis of Core Weakness. Date of Evaluation: 05/24/23 Physical Therapist: Flavia Hernandez DPT Visit Plan Plan: Patient will continue HEP with small changes pt and PT worked together to change to current program- encouraged to call fi questions- pt happy with plan Subjective Subjective: Patient reports that 30-35 years ago he had back problems- went to the PT- did exercises for 10-15 years- came back and was not doing the superman's correctly. He has not had any back pain for about 20 years now. He is here today to make sure he is doing all of his exercises correctly and get a written plan for his home exercise program. He does an hour to an hour and 10 min of exercise today His routine is waking up- neck exercises which are- good posture- rotations- side bendings- cervical retractions- cervical extension-neck rolls then he goes into his back exercises- prone leg lift and prone arm lift- prone superman- hamstring stretch- SKTC- DKTC- crunches- getting up from sitting using a rolling technique- wall slides- balance ex: single leg stance eyes open and closed- hip abd/extn and flexion- walk 20 min 4 days a week. Objective Objective: Demonstrated: oziel exercises which are- good posture- rotations- side bendings- cervical retractions- cervical extension-neck rolls then he goes into his back exercises- prone leg lift and prone arm lift- prone superman- hamstring stretch- SKTC- DKTC- crunches- getting up from sitting using a rolling technique- wall slides- balance ex: single leg stance eyes open and closed- hip abd/extn and flexion- walk 20 min 4 days a week. Rehabilitation Potential Physical Therapy Diagnosis: Patient presents with fully functional and with an extensive HEP Rehabilitation Potential: Excellent Anticipated Interventions Text: Thank you for the opportunity to evaluate your patient. For Medicare and Medicare HMO plans, please review the plan of care and approve it. It will need to be FAXED BACK to us at [phone] for Medicare purposes. For Medicare only, by signing this I certify the plan of care. Please let me know if there are questions or concerns regarding this plan of care. Physician Signature: Date:
--- NOTE | 2023-06-27 09:30 | HP.PT.NRP ---
Patient Information Patient Information: MAUREEN RUSHING was seen in my office for initial evaluation on 05/24/23. The following Plan of Care was established for this patient: Last Seen Last Seen: This patient was last seen in our office . Pertinent comments regarding their Physical therapy will appear below: Patient will continue to perform HEP and call if questions arise At this point I will be discontinuing this patient from physical therapy. I would be happy to see this patient again in the future if found appropriate by the physician. Thank you! LIZANDRO RomeroT
== END 2023-05-24 19:00 | disposition home or self-care (01) ==
LOC: PT 09:45
PROVIDERS: PCP Family Medicine; Referring Provider Family Medicine; Visit Provider Family Medicine
DX: R53.1 Weakness (principal)
CPT/HCPCS: 97162

== ENCOUNTER → 2023-08-09 | Outpatient (CLI) | payer MEDICARE, OTHER, SELFPAY ==
[2023-08-09 10:06] LABS: Absolute Lymphocyte Count 1.05 X10^3/uL (0.83-4.51); Absolute Neutrophil Count 1.7 X10^3/uL (2.0-7.7); Basophil# 0.06 X10^3/uL; Basophil% 1.6 % (0-1); Eosinophil# 0.33 X10^3/uL; Eosinophils% 8.6 % (0-5); Hematocrit 43.1 % (40-54); Hemoglobin 13.7 g/dL (13.0-16.5); Lymphocyte # 1.05 X10^3/ul (0.83-4.51); Lymphocyte % 27.5 % (19-41); Mean Corp Hgb Conc 31.8 g/dL (32-36); Mean Corpuscular Hgb 29.5 pg (27.0-32.0); Mean Corpuscular Volume 92.9 fL (80-94); Monocyte# 0.66 X10^3/uL; Monocyte% 17.3 % (0-10); NRBC Flagged by Analyzer 0 % (0-5); Neutrophil # 1.71 X10^3/uL (2.7-7.7); Neutrophil % 44.7 % (47-70); Platelet Count 318 K/mm3 (150-450); RBC Distribution Width CV 13.8 % (11.6-14.6); RBC Distribution Width SD 47.7 fl (35.1-43.9); Red Blood Count 4.64 M/mm3 (4.6-6.2); White Blood Count 3.8 K/mm3 (4.4-11.0)
[2023-08-09 10:32] LABS: Vitamin B12 380 pg/mL (211-911)
[2023-08-09 10:50] LABS: ALB/GLOB Ratio 1.3 RATIO (0.9-2.4); AST(SGOT) 11 U/L (15-37); Alanine Aminotransfer ALT/SGPT 23 U/L (16-61); Albumin, Serum 3.7 g/dL (3.2-5.0); Alkaline Phosphatase 88 U/L (45-117); Anion Gap 5 (5-15); BUN 9 mg/dL (7-18); Calcium,Total 8.7 mg/dL (8.5-10.1); Chloride 100 mmol/L (98-107); Cholesterol 192 mg/dL (200); Creatinine, Serum 0.69 mg/dL (0.70-1.30); EST Glomerular Filtration Rate 118 mL/min (>60); Est Glom Filt Rate - Afr Amer 143 mL/min (>60); Globulin 2.8 g/dL (2.2-4.2); Glucose 88 mg/dL (74-106); High Density Lipoprotein 76 mg/dL; PSA,Total- Diagnostic 1.39 ng/mL (0.0-4.0); Potassium 3.7 mmol/L (3.5-5.1); Protein, Total 6.5 g/dL (6.4-8.2); Sodium Level 135 mmol/L (136-145); Triglycerides 59 mg/dL; Very Low Density Lipoprotein 12 mg/dL (5-40)
--- NOTE | 2023-08-09 11:47 | RAD_ITS ---
INDICATION: KYPHOSCOLIOSIS EXAMINATION/TECHNIQUE: X-RAY - XR Spine Thoracic 2 Views COMPARISON: FINDINGS: Mild dextroscoliosis thoracolumbar spine. T6-T12 severe spondylosis, moderate spondylosis T1-T6. Severe loss of disc space height throughout the thoracic spine. Mild wedge deformities T7 and T8 age indeterminate. INCLUDED CHEST/ABDOMEN: No acute abnormalities. RAD/Thoracic Spine 2 Views IMPRESSION: Mild dextroscoliosis. Degenerative changes as above. Electronically Signed: Blanco Carr MD at 10:34 EDT ,
--- NOTE | 2023-08-09 11:47 | RAD_ITS ---
HISTORY: KYPHOSCOLIOSIS. TECHNIQUE: XR Spine Lumbar Min 4 Views. COMPARISON: CT 02/10/2022. FINDINGS: VERTEBRAE: Vertebral body heights preserved. Degenerative changes of the posterior elements. ALIGNMENT: No significant anterior or posterior subluxation. Mild levoscoliosis. INTERVERTEBRAL DISCS: Intervertebral disc space narrowing and degenerative endplate change at multiple levels. RAD/L/S Spine Min 4 Views IMPRESSION: No acute fracture or dislocation identified in the lumbar spine. Mild scoliosis. Multilevel degenerative change. Electronically Signed: Kelly Cazares MD at 10:58 EDT ,
[2023-08-16 15:08] LABS: PROEL- A/G Ratio 1.6 (0.7-1.7); PROEL- Albumin 3.9 g/dL (2.9-4.4); PROEL- Alpha-1 Globulin 0.2 g/dL (0.0-0.4); PROEL- Alpha-2 Globulin 0.7 g/dL (0.4-1.0); PROEL- Beta Globulin 1.1 g/dL (0.7-1.3); PROEL- Gamma Globulin 0.3 g/dL (0.4-1.8); PROEL- Globulin, Total 2.4 g/dL (2.2-3.9); PROEL- TOTAL PROTEIN 6.3 g/dL (6.0-8.5)
== END | disposition home or self-care (01) ==
LOC: MTLAB 07:34
PROVIDERS: PCP Family Medicine; Referring Provider Family Medicine; Visit Provider Family Medicine
DX: M41.9 Scoliosis, unspecified (principal); G40.909 Epilepsy, unspecified, not intractable, without status epilepticus; E53.8 Deficiency of other specified B group vitamins; N40.0 Benign prostatic hyperplasia without lower urinary tract symptoms
CPT/HCPCS: 36415; 72070; 72110; 80053; 80061; 82607; 82746; 84153; 84165; 85025

== ENCOUNTER → 2023-09-05 | Outpatient (CLI) | payer MEDICARE, OTHER, SELFPAY ==
--- NOTE | 2023-09-05 08:43 | BD_ITS ---
STUDY: DUAL ENERGY X-RAY ABSORPTIOMETRY / DXA REASON FOR EXAM: Male, 73 years old. M85.89 TECHNIQUE: Bone Mineral Density (BMD) measurements of lumbar spine and bilateral hips were obtained. COMPARISON: Comparison is made with prior study March 13, 2012. FINDINGS: Lumbar Spine (L1-L4): g/cm2 (1.010) / T-score (-0.7) / Z-score (0.3) Findings are suggestive of normal bone density with a low fracture risk. Left Femur Total: g/cm2 (0.841) / T-score (-1.3) / Z-score (-0.4) Left Femoral Neck: g/cm2 (0.670) / T-score (-1.9) / Z-score (-0.6) Right Femur Total: g/cm2 (0.78) / T-score (-1.7) / Z-score (-0.8) Right Femoral Neck: g/cm2 (0.617) / T-score (-2.3) / Z-score (-1.0) The T-Scores on the most recent prior examination were: Lumbar Spine (L1-L4): There has been improvement of bone density since the previous examination. Left Femur Total: which represents a worsening of 7.2%. Right Femur Total: which represents a worsening of 11.7%. BD/Dexa Bone Density Study IMPRESSION: The patient is considered osteopenic as outlined below according to World [employer] Organization (WHO) criteria with a high fracture risk. There has been worsening of bone density since the previous examination. Reference Information: The T-score is the number of standard deviations above or below the standard which is normal for young adults at their peak bone mineral density. The World Health Organization (WHO) interprets the T-scores as follows: Above -1 Normal bone density Between -1 and -2.5 Osteopenia Equal to / or below -2.5 Osteoporosis As a practical clinical guideline, osteopenia may be graded as follows: Mild -1 through -1.5 Moderate -1.6 through -2.0 Severe -2.1 through -2.4 The Z-score is the number of standard deviations above or below age-matched controls. A Z-score of less than -1.5 would be considered abnormal. References: 1. NIH Osteoporosis and Related Bone Diseases www osteo.org 2. International Society for Clinical Densitometry www iscd.org 3. National Osteoporosis Foundation www nof.org Electronically Signed: Salas Hull MD at 13:41 EST ,
== END | disposition home or self-care (01) ==
LOC: OPBD 08:23
PROVIDERS: PCP Family Medicine; Referring Provider Family Medicine; Visit Provider Family Medicine
DX: M85.89 Other specified disorders of bone density and structure, multiple sites (principal)
CPT/HCPCS: 77080

== ENCOUNTER → 2024-01-02 | Outpatient (CLI) | payer MEDICARE, OTHER, SELFPAY ==
[2024-01-02 12:09] LABS: Absolute Lymphocyte Count 1.01 X10^3/uL (0.83-4.51); Absolute Neutrophil Count 1.8 X10^3/uL (2.0-7.7); Basophil# 0.04 X10^3/uL; Eosinophil# 0.29 X10^3/uL; Eosinophils% 7.6 % (0-5); Lymphocyte # 1.01 X10^3/ul (0.83-4.51); Lymphocyte % 26.5 % (19-41); Mean Corp Hgb Conc 32.6 g/dL (32-36); Mean Corpuscular Hgb 29.3 pg (27.0-32.0); Mean Platelet Vol. 8.6 fl (6.2-12.0); Monocyte# 0.71 X10^3/uL; Monocyte% 18.6 % (0-10); NRBC Flagged by Analyzer 0 % (0-5); Neutrophil # 1.75 X10^3/uL (2.7-7.7); Platelet Count 293 K/mm3 (150-450); RBC Distribution Width CV 13.6 % (11.6-14.6); RBC Distribution Width SD 44.6 fl (35.1-43.9); Red Blood Count 4.78 M/mm3 (4.6-6.2); White Blood Count 3.8 K/mm3 (4.4-11.0)
[2024-01-02 13:28] LABS: ALB/GLOB Ratio 1.2 RATIO (0.9-2.4); AST(SGOT) 19 U/L (15-37); Alanine Aminotransfer ALT/SGPT 24 U/L (16-61); Albumin, Serum 3.7 g/dL (3.2-5.0); Alkaline Phosphatase 82 U/L (45-117); Anion Gap 10 (5-15); BUN 7 mg/dL (7-18); BUN/Creat Ratio 10.4 RATIO (10-20); CRP < 2.90 mg/L (0.0-3.0); Calcium,Total 8.7 mg/dL (8.5-10.1); Chloride 98 mmol/L (98-107); Creatinine, Serum 0.67 mg/dL (0.70-1.30); EST Glomerular Filtration Rate 122 mL/min (>60); Est Glom Filt Rate - Afr Amer 148 mL/min (>60); Globulin 3.2 g/dL (2.2-4.2); Glucose 92 mg/dL (74-106); Potassium 3.9 mmol/L (3.5-5.1); Protein, Total 6.9 g/dL (6.4-8.2); Rheumatoid Factor < 10.0 IU/mL (<15); Sodium Level 134 mmol/L (136-145); T4 Free Direct 0.72 ng/dL (0.76-1.46); Thyroid Stim Hormone (TSH) 1.93 uIU/mL (0.358-3.74)
[2024-01-03 13:08] LABS: ANTINUCLEAR ANTIBODIES DIRECT Negative (Negative)
[2024-01-03 15:08] LABS: PROEL- A/G Ratio 1.5 (0.7-1.7); PROEL- Albumin 3.9 g/dL (2.9-4.4); PROEL- Alpha-1 Globulin 0.2 g/dL (0.0-0.4); PROEL- Alpha-2 Globulin 0.8 g/dL (0.4-1.0); PROEL- Beta Globulin 1.1 g/dL (0.7-1.3); PROEL- Gamma Globulin 0.4 g/dL (0.4-1.8); PROEL- Globulin, Total 2.6 g/dL (2.2-3.9); PROEL- TOTAL PROTEIN 6.5 g/dL (6.0-8.5); PROEL-M-Spike Comment: g/dL (Not Observed)
== END | disposition home or self-care (01) ==
LOC: MFPLAB 11:08
PROVIDERS: PCP Family Medicine; Visit Provider Family Medicine
DX: I73.00 Raynaud's syndrome without gangrene (principal); E55.9 Vitamin D deficiency, unspecified; Z13.220 Encounter for screening for lipoid disorders
CPT/HCPCS: 80053; 84165; 84439; 84443; 85025; 86038; 86140; 86431

== ENCOUNTER → 2024-06-09 | Outpatient (CLI) | payer MEDICARE, OTHER, SELFPAY ==
[2024-06-09 16:08] LABS: Creatinine, Serum 0.82 mg/dL (0.70-1.30); EST Glomerular Filtration Rate 98 mL/min (>60); Est Glom Filt Rate - Afr Amer 118 mL/min (>60)
== END | disposition home or self-care (01) ==
LOC: LAB 15:04
PROVIDERS: PCP Family Medicine; Referring Provider Nurse Practitioner; Visit Provider Nurse Practitioner
DX: R33.9 Retention of urine, unspecified (principal)
CPT/HCPCS: 82565

== ENCOUNTER → 2024-06-10 | Outpatient (CLI) | payer MEDICARE, OTHER, SELFPAY ==
[2024-06-10 17:38] LABS: Absolute Lymphocyte Count 0.95 X10^3/uL (0.83-4.51); Basophil# 0.05 X10^3/uL; Basophil% 1.2 % (0-1); Eosinophil# 0.26 X10^3/uL; Eosinophils% 6.5 % (0-5); Hematocrit 41.6 % (40-54); Hemoglobin 13.6 g/dL (13.0-16.5); Lymphocyte # 0.95 X10^3/ul (0.83-4.51); Lymphocyte % 23.6 % (19-41); Mean Corp Hgb Conc 32.7 g/dL (32-36); Mean Corpuscular Hgb 29.4 pg (27.0-32.0); Mean Corpuscular Volume 89.8 fL (80-94); Mean Platelet Vol. 9.5 fl (6.2-12.0); Monocyte# 0.73 X10^3/uL; Monocyte% 18.1 % (0-10); NRBC Flagged by Analyzer 0 % (0-5); Neutrophil # 2.03 X10^3/uL (2.7-7.7); Neutrophil % 50.4 % (47-70); Platelet Count 306 K/mm3 (150-450); RBC Distribution Width CV 13.6 % (11.6-14.6); RBC Distribution Width SD 44.6 fl (35.1-43.9); Red Blood Count 4.63 M/mm3 (4.6-6.2)
[2024-06-10 17:55] LABS: ALB/GLOB Ratio 1.3 RATIO (0.9-2.4); AST(SGOT) 16 U/L (15-37); Alanine Aminotransfer ALT/SGPT 21 U/L (16-61); Albumin, Serum 3.7 g/dL (3.2-5.0); Alkaline Phosphatase 87 U/L (45-117); Anion Gap 12 (5-15); BUN 7 mg/dL (7-18); BUN/Creat Ratio 9.1 RATIO (10-20); Calcium,Total 8.9 mg/dL (8.5-10.1); Chloride 98 mmol/L (98-107); Creatinine, Serum 0.77 mg/dL (0.70-1.30); EST Glomerular Filtration Rate 105 mL/min (>60); Est Glom Filt Rate - Afr Amer 127 mL/min (>60); Globulin 2.9 g/dL (2.2-4.2); Glucose 93 mg/dL (74-106); Potassium 4.6 mmol/L (3.5-5.1); Protein, Total 6.6 g/dL (6.4-8.2); Sodium Level 133 mmol/L (136-145)
== END | disposition home or self-care (01) ==
LOC: MFPLAB 14:06
PROVIDERS: PCP Family Medicine; Visit Provider Registered Nurse
DX: R42 Dizziness and giddiness (principal); R53.83 Other fatigue
CPT/HCPCS: 36415; 80053; 85025

== ENCOUNTER → 2024-12-17 | Outpatient (CLI) | payer MEDICARE, OTHER, SELFPAY ==
[2024-12-17 14:30] LABS: PSA,Total- Diagnostic 1.61 ng/mL (0.0-4.0)
== END | disposition home or self-care (01) ==
LOC: LAB 13:31
PROVIDERS: PCP Family Medicine; Referring Provider Urology; Visit Provider Urology
DX: R97.20 Elevated prostate specific antigen [PSA] (principal)
CPT/HCPCS: 36415; 84153

== ENCOUNTER 2025-02-08 10:23 | Outpatient (CLI) | payer MEDICARE, OTHER, SELFPAY ==
[2025-02-08 12:48] LABS: Absolute Lymphocyte Count 0.89 X10^3/uL (0.83-4.51); Absolute Neutrophil Count 2.1 X10^3/uL (2.0-7.7); Basophil# 0.05 X10^3/uL; Basophil% 1.2 % (0-1); Eosinophil# 0.24 X10^3/uL; Eosinophils% 5.7 % (0-5); Hematocrit 41.4 % (40-54); Hemoglobin 13.7 g/dL (13.0-16.5); Lymphocyte # 0.89 X10^3/ul (0.83-4.51); Lymphocyte % 21.1 % (19-41); Mean Corp Hgb Conc 33.1 g/dL (32-36); Mean Corpuscular Hgb 30.2 pg (27.0-32.0); Mean Corpuscular Volume 91.2 fL (80-94); Monocyte% 21.4 % (0-10); NRBC Flagged by Analyzer 0 % (0-5); Neutrophil # 2.12 X10^3/uL (2.7-7.7); Neutrophil % 50.4 % (47-70); Platelet Count 315 K/mm3 (150-450); RBC Distribution Width CV 13.4 % (11.6-14.6); RBC Distribution Width SD 44.8 fl (35.1-43.9); Red Blood Count 4.54 M/mm3 (4.6-6.2); White Blood Count 4.2 K/mm3 (4.4-11.0)
[2025-02-08 13:13] LABS: Carbamazepine (Tegretol) < 2.0 ug/mL (4.0-12.0)
[2025-02-08 13:31] LABS: ALB/GLOB Ratio 1.8 RATIO (0.9-2.4); AST(SGOT) 19 U/L (<=37); Alanine Aminotransfer ALT/SGPT 14 U/L (<=46); Albumin, Serum 4.2 g/dL (3.4-4.8); Alkaline Phosphatase 96 U/L (40-129); Anion Gap 11 (5-15); BUN 8 mg/dL (4-19); BUN/Creat Ratio 10.6 RATIO (10-20); Calcium,Total 9.2 mg/dL (7.6-11.0); Carbon Dioxide 25.8 mmol/L (21.0-32.0); Chloride 97 mmol/L (98-108); Creatinine, Serum 0.79 mg/dL (0.70-1.20); EST Glomerular Filtration Rate 92 (>60); Globulin 2.3 g/dL (2.2-4.2); Glucose 75 mg/dL (70-99); Potassium 4.3 mmol/L (3.3-5.1); Protein, Total 6.5 g/dL (5.9-8.4); Sodium Level 134 mmol/L (133-145); Total Bilirubin 0.22 mg/dL (0.00-1.30)
[2025-02-09 18:10] LABS: Phenytoin (Dilantin) Level 16.8 ug/mL (10.0-20.0)
== END 2025-02-08 23:59 | disposition home or self-care (01) ==
LOC: MFPLAB 10:26
PROVIDERS: PCP Family Medicine; Referring Provider Family Medicine; Visit Provider Family Medicine
DX: Z00.00 Encounter for general adult medical examination without abnormal findings (principal); G40.909 Epilepsy, unspecified, not intractable, without status epilepticus; M85.80 Other specified disorders of bone density and structure, unspecified site
CPT/HCPCS: 36415; 80053; 80156; 80185; 82306; 85025

== ENCOUNTER → 2025-07-01 | Outpatient (CLI) | payer MEDICARE, OTHER, SELFPAY ==
--- NOTE | 2025-07-01 09:58 | RAD_ITS ---
PROCEDURE: CHEST PA AND LATERAL 07/01/2025 REASON FOR EXAM: LUMP IN ARMPIT TECHNIQUE: Procedure Code: RADCXR Modality: DX Procedure: CHEST PA AND LATERAL COMPARISON: Portable chest, 08/23/2019. FINDINGS: The lungs are clear. There are benign calcified hilar lymph nodes bilaterally. The heart is normal. There are no soft tissue abnormalities identified with attention to the right chest wall. RAD/Chest PA and Lateral IMPRESSION: No evidence of acute cardiopulmonary pathology. If there is a palpable nodule in the right chest wall ultrasound is recommended. Reading Location: [id number]
[2025-07-01 12:39] LABS: Hematocrit 38.4 % (40-54); Hemoglobin 13.6 g/dL (13.0-16.5); Immature Granulocytes Count 0.010 X10^3/uL (0.0-0.0); Mean Corp Hgb Conc 35.4 g/dL (32-36); Mean Corpuscular Volume 91.4 fL (80-94); Mean Platelet Vol. 9.0 fl (6.2-12.0); NRBC Flagged by Analyzer 0 % (0-5); POSITIVE DIFFERENTIAL YES; Platelet Count 332 K/mm3 (150-450); RBC Distribution Width CV 13.6 % (11.6-14.6); RBC Distribution Width SD 44.3 fl (35.1-43.9); Red Blood Count 4.20 M/mm3 (4.6-6.2); White Blood Count 5.0 K/mm3 (4.4-11.0)
[2025-07-01 13:10] LABS: AST(SGOT) 23 U/L (<=37); Alanine Aminotransfer ALT/SGPT 14 U/L (<=46); Albumin, Serum 4.0 g/dL (3.4-4.8); Alkaline Phosphatase 243 U/L (40-129); Anion Gap 12 (5-15); BUN 6 mg/dL (4-19); BUN/Creat Ratio 8.7 RATIO (10-20); Calcium,Total 9.0 mg/dL (7.6-11.0); Carbon Dioxide 24.9 mmol/L (21.0-32.0); Chloride 98 mmol/L (98-108); Globulin 2.6 g/dL (2.2-4.2); Glucose 109 mg/dL (70-99); Potassium 4.1 mmol/L (3.3-5.1)
--- OUTSIDE RECORDS SUMMARY | 2025-07-01 13:22 | XMS RPT_ITS | CCD ---
Author Organization [facility] Care Team Providers Care Court Deputy Name Role Phone Julio Rene Referring Unavailable Julio Rene Attending Unavailable Julio Rene Primary Care Unavailable Julio Rene Primary Care Unavailable Mahesh Jeter Referring Unavailable SteffanyMahesh Attending Unavailable Dalia Patterson Attending Unavailable Julio Rene Primary Care Unavailable Julio Rene Primary Care Unavailable [place] Referring Unavailable [place], Dalia Attending Unavailable Medications Current Medications Medication Drug Class(es) Dates Sig (Normalized) Sig (Original) apple cider vinegar 600 mg oral capsule (10 sources) Start: 1 take 600 mg by mouth three times daily Apple Cider Vinegar Active 600 MG PO THREE TIMES A DAY December 30, 2020 1:00am calcium citrate 1500 mg / cholecalciferol 200 unt oral tablet (10 sources) Vitamin D Start: 9 Calcium Citrate-Vitamin D3 Active 1 EACH PO THREE TIMES A DAY August 23, 2019 12:00am chlorpheniramine maleate 4 mg oral tablet (10 sources) Histamine-1 Receptor Antagonist Start: 9 take 1 tablet by mouth at bedtime Chlorpheniramine Maleate (Allergy-Time) 4 MG tablet Active 4 MG PO AT BEDTIME August 23, 2019 12:00am cholecalciferol 0.025 mg oral tablet (10 sources) Vitamin D Start: 1 take 1000 [IU] by mouth once daily Cholecalciferol (Vitamin D3) Active 1000 UNIT PO DAILY December 30, 2020 1:00am fluticasone propionate 0.05 mg/actuat metered dose nasal spray (10 sources) Corticosteroid Start: 9 Fluticasone Propionate Active 4 SPRAY NASAL AT BEDTIME August 23, 2019 12:00am ibuprofen 600 mg oral tablet (10 sources) Nonsteroidal Anti-inflammatory Drug Start: 1 take 600 mg by mouth every six hours as needed Ibuprofen Active 600 MG PO EVERY 6 HOURS NEEDED January 06, 2021 1:59pm ipratropium bromide 0.042 mg/actuat metered dose nasal spray (10 sources) Anticholinergic Start: 1 Ipratropium [place] Active 15 ML NS TWICE A DAY December 30, 2020 1:00am levocetirizine dihydrochloride 5 mg oral tablet (10 sources) Histamine-1 Receptor Antagonist Start: 9 take 1 tablet by mouth once daily Levocetirizine (Xyzal) 5 MG tablet Active 5 MG PO DAILY August 23, 2019 12:00am magnesium oxide 250 mg oral tablet (10 sources) Start: 9 take 250 mg by mouth at bedtime Magnesium Oxide Active 250 MG PO AT BEDTIME August 23, 2019 12:00am mometasone furoate 0.001 mg/mg topical ointment (10 sources) Corticosteroid Start: 9 Mometasone Active 15 GM TP DAILY NEEDED August 23, 2019 12:00am pantoprazole 40 mg delayed release oral tablet (10 sources) Proton Pump Inhibitor Start: 1 take 40 mg by mouth once daily Pantoprazole Active 40 MG PO DAILY December 30, 2020 1:00am phenytoin sodium 100 mg extended release oral capsule (10 sources) Anti-epileptic Agent Start: 9 take 100 mg by mouth three times daily Phenytoin Sodium Extended Active 100 MG PO THREE TIMES A DAY August 23, 2019 12:00am potassium chloride 20 meq extended release oral tablet (10 sources) Start: 2 take 20 mEq by mouth twice daily Potassium Chloride Active 20 MEQ PO TWICE A DAY February 10, 2022 12:00am Problems Active Problems Problem Classification Problem Date Documented Date Episodic/Chronic Abdominal pain (10 sources) Generalized abdominal pain; Translations: [Generalized abdominal pain] 02-18-2022 Episodic Esophageal disorders (10 sources) Gastroesophageal reflux disease; Translations: [Gastro-esophageal reflux disease without esophagitis] 02-10-2022 Chronic Fluid and electrolyte disorders (10 sources) Hypokalemia; Translations: [Hypokalemia] 02-18-2022 Episodic Hyperplasia of prostate (10 sources) Benign prostatic hypertrophy with outflow obstruction; Translations: [Benign prostatic hyperplasia with lower urinary tract symptoms] 02-10-2022 Chronic Other screening for suspected conditions (not mental disorders or infectious disease) (1 source) Elevated prostate specific antigen [PSA]; Translations: [Elevated prostate specific antigen [PSA]] Onset: 12-31-2024 Episodic Other upper respiratory disease (10 sources) Seasonal allergy; Translations: [Other seasonal allergic rhinitis] 02-10-2022 Chronic Residual codes; unclassified (10 sources) History of clinical finding in subject; Translations: [Personal history of other specified conditions] 02-10-2022 Episodic Past or Other Problems Problem Classification Problem Date Documented Da te Episodic/Chronic Conditions associated with dizziness or vertigo (1 source) Dizziness and giddiness; Translations: [Dizziness and giddiness] Onset: 07-02-2024 Episodic Genitourinary symptoms and ill-defined conditions (11 sources) Acute retention of urine ; Translations: [Other retention of urine] Onset: 06-30-2024 02-18-2022 Episodic Results Test Name Value Interpretation Reference Range Facility Phenytoin (Dilantin) Levelon 02-09-2025 Phenytoin [Mass/Vol] 16.8 ug/mL Normal 10.0-20.0 [facility] Comment on above: Order Comment: ADD P HENYTOIN FROM 02/08 1027 [id number] 1419 Result Comment: Toxi c signs are seldom seen below 15 ug/mL, while nystagmus often appears when serum levels rise above 20 ug/mL. Ataxia is observed most often when serum levels reach 25 to 30 ug/mL and somnolence and dysarthria above 40 ug/mL. At high doses, phenytoin can even cause an increase in the frequency of seizures. Performed By: #### L 501.7700, L506.1001 #### [facility] [address] [place], [address] CBC W/Diff, Automatedon 01-26 Absolute Lymph 0.89 X10 3/uL Normal 0.83-4.51 [facility] Comment on above: Order Comment: Order Date: 02/08/25 Order Info: 0184-1 - CBCD Performed By: #### L 501.7900, L500.4050, L100.0100 #### [facility] [address] [place], [address] Absolute Neut 2.1 X10 3/uL Normal 2.0-7.7 [facility] Comment on above: Order Comment: Order Date: 02/08/25 Order Info: 0184-1 - CBCD Performed By: #### L 501.7900, L500.4050, L100.0100 #### [facility] [address] [place], [address] Basophils/100 WBC (Bld) 1.2 % High 0-1 [facility] Comment on above: Order Comment: Order Date: 02/08/25 Order Info: 0184-1 - CBCD Performed By: #### L 501.7900, L500.4050, L100.0100 #### [facility] [address] [place], [address] Eosinophils/100 WBC (Bld) 5.7 % High 0-5 [facility] Comment on above: Order Comment: Order Date: 02/08/25 Order Info: 0184-1 - CBCD Performed By: #### L 501.7900, L500.4050, L100.0100 #### [facility] [address] [place], [address] Erythrocyte distribution width (RBC) [Ratio] 13.4 % Normal 11.6-14.6 [facility] Comment on above: Order Comment: Order Date: 02/08/25 Order Info: 0184-1 - CBCD Performed By: #### L 501.7900, L500.4050, L100.0100 #### [facility] [address] [place], [address] Hematocrit (Bld) [Volume fraction] 41.4 % Normal 40-54 [facility] Comment on above: Order Comment: Order Date: 02/08/25 Order Info: 0184-1 - CBCD Performed By: #### L 501.7900, L500.4050, L100.0100 #### [facility] [address] [place], [address] Hemoglobin (Bld) [Mass/Vol] 13.7 g/dL Normal 13.0-16.5 [facility] Comment on above: Order Comment: Order Date: 02/08/25 Order Info: 0184- - CBCD Performed By: #### L 501.7900, L500.4050, L100.0100 #### [facility] [address] [place], [address] IG% 0.200 Normal 0.0-0.9 [facility] Comment on above: Order Comment: Order Date: 02/08/25 Order Info: 018- - CBCD Result Comment: IG% - Immature Granulocytes (promyelocytes, myelocytes and metamyelocytes) > 1% indicates that a LEFT SHIFT is Present. Performed By: #### L 501.7900, L500.4050, L100.0100 #### [facility] [address] [place], [address] Lymphocytes/100 WBC (Bld) 21.1 % Normal 19-41 [facility] Comment on above: Order Comment: Order Date: 02/08/25 Order Info: 0184- - CBCD Performed By: #### L 501.7900, L500.4050, L100.0100 #### [facility] [address] [place], [address] MCH (RBC) [Entitic mass] 30.2 pg Normal 27.0-32.0 [facility] Comment on above: Order Comment: Order Date: 02/08/25 Order Info: 0184- - CBCD Performed By: #### L 501.7900, L500.4050, L100.0100 #### [facility] [address] [place], [address] MCHC (RBC) [Mass/Vol] 33.1 g/dL Normal 32-36 [facility] Comment on above: Order Comment: Order Date: 02/08/25 Order Info: 0184-1 - CBCD Performed By: #### L 501.7900, L500.4050, L100.0100 #### [facility] [address] [place], [address] MCV (RBC) [Entitic vol] 91.2 fL Normal 80-94 [facility] Comment on above: Order Comment: Order Date: 02/08/25 Order Info: 0184-1 - CBCD Performed By: #### L 501.7900, L500.4050, L100.0100 #### [facility] [address] [place], [address] Monocytes/100 WBC (Bld) 21.4 % High 0-10 [facility] Comment on above: Order Comment: Order Date: 02/08/25 Order Info: 0184-1 - CBCD Performed By: #### L 501.7900, L500.4050, L100.0100 #### [facility] [address] [place], [address] Neutrophils/100 WBC (Bld) 50.4 % Normal 47-70 [facility] Comment on above: Order Comment: Order Date: 02/08/25 Order Info: 0184-1 - CBCD Performed By: #### L 501.7900, L500.4050, L100.0100 #### [facility] [address] [place], [address] Nucleated RBC (Bld) [#/Vol] 0 10*3/uL Normal 0-5 [facility] Comment on above: Order Comment: Order Date: 02/08/25 Order Info: 0184-1 - CBCD Performed By: #### L 501.7900, L500.4050, L100.0100 #### [facility] [address] [place], [address] Platelet mean volume (Bld) [Entitic vol] 9.0 fL Normal 6.2-12.0 [facility] Comment on above: Order Comment: Order Date: 02/08/25 Order Info: 0184-1 - CBCD Performed By: #### L 501.7900, L500.4050, L100.0100 #### [facility] [address] [place], [address] Platelets (Bld) [#/Vol] 315 10*3/uL Normal 150-450 [facility] Comment on above: Order Comment: Order Date: 02/08/25 Order Info: 0184-1 - CBCD Performed By: #### L 501.7900, L500.4050, L100.0100 #### [facility] [address] [place], [address] RBC (Bld) [#/Vol] 4.54 10*6/uL Low 4.6-6.2 [facility] Comment on above: Order Comment: Order Date: 02/08/25 Order Info: 0184-1 - CBCD Performed By: #### L 501.7900, L500.4050, L100.0100 #### [facility] [address] [place], [address] RDW SD 44.8 fl High 35.1-43.9 [facility] Comment on above: Order Comment: Order Date: 02/08/25 Order Info: 0184-1 - CBCD Performed By: #### L 501.7900, L500.4050, L100.0100 #### [facility] [address] [place], [address] WBC (Bld) [#/Vol] 4.2 10*3/uL Low 4.4-11.0 [facility] Comment on above: Order Comment: Order Date: 02/08/25 Order Info: 0184-1 - CBCD Performed By: #### L 501.7900, L500.4050, L100.0100 #### [facility] [address] [place], [address] Carbamazepine (Tegretol)on 0 02-08-2025 CARBAMAZEPINE < 2.0 Low 4.0-12.0 [facility] Comment on above: Order Comment: Order Date: 02/08/25 Order Info: 3432-2 - CARB Performed By: #### L 501.7900, L500.4050, L100.0100 #### [facility] [address] [place], [address] Comprehensive Metabolic Prof ilon 02-08-2025 Albumin [Mass/Vol] 4.2 g/dL Normal 3.4-4.8 [facility] Comment on above: Order Comment: Order Date: 02/08/25 Order Info: 0786-1 - CMP Performed By: #### L 501.7900, L500.4050, L100.0100 #### [facility] [address] [place], [address] Albumin/Globulin [Mass ratio] 1.8 {ratio} Normal 0.9-2.4 [facility] Comment on above: Order Comment: Order Date: 02/08/25 Order Info: 0786-1 - CMP Performed By: #### L 501.7900, L500.4050, L100.0100 #### [facility] [address] [place], [address] ALK PHOS 96 U/L Normal 40-129 [facility] Comment on above: Order Comment: Order Date: 02/08/25 Order Info: 0786-1 - CMP Performed By: #### L 501.7900, L500.4050, L100.0100 #### [facility] [address] [place], [address] ALT [Catalytic activity/Vol] 14 U/L Normal <=46 [facility] Comment on above: Order Comment: Order Date: 02/08/25 Order Info: 0786-1 - CMP Performed By: #### L 501.7900, L500.4050, L100.0100 #### [facility] [address] [place], [address] AST [Catalytic activity/Vol] 19 U/L Normal <=37 [facility] Comment on above: Order Comment: Order Date: 02/08/25 Order Info: 0786-1 - CMP Performed By: #### L 501.7900, L500.4050, L100.0100 #### [facility] [address] [place], [address] Bilirubin [Mass/Vol] 0.22 mg/dL Normal 0.00-1.30 [facility] Comment on above: Order Comment: Order Date: 02/08/25 Order Info: 0786-1 - CMP Performed By: #### L 501.7900, L500.4050, L100.0100 #### [facility] [address] [place], [address] BUN/CRE 10.6 RATIO Normal 10-20 [facility] Comment on above: Order Comment: Order Date: 02/08/25 Order Info: 0786-1 - CMP Performed By: #### L 501.7900, L500.4050, L100.0100 #### [facility] [address] [place], [address] Calcium [Mass/Vol] 9.2 mg/dL Normal 7.6-11.0 [facility] Comment on above: Order Comment: Order Date: 02/08/25 Order Info: 0786-1 - CMP Performed By: #### L 501.7900, L500.4050, L100.0100 #### [facility] [address] [place], [address] Chloride [Moles/Vol] 97 mmol/L Low 98-108 [facility] Comment on above: Order Comment: Order Date: 02/08/25 Order Info: 0786-1 - CMP Performed By: #### L 501.7900, L500.4050, L100.0100 #### [facility] [address] [place], [address] CO2 [Moles/Vol] 25.8 mmol/L Normal 21.0-32.0 [facility] Comment on above: Order Comment: Order Date: 02/08/25 Order Info: 0786-1 - CMP Performed By: #### L 501.7900, L500.4050, L100.0100 #### [facility] [address] [place], [address] Creatinine [Mass/Vol] 0.79 mg/dL Normal 0.70-1.20 [facility] Comment on above: Order Comment: Order Date: 02/08/25 Order Info: 0786-1 - CMP Performed By: #### L 501.7900, L500.4050, L100.0100 #### [facility] [address] [place], [address] GAP 11 Normal 5-15 [facility] Comment on above: Order Comment: Order Date: 02/08/25 Order Info: 0786-1 - CMP Performed By: #### L 501.7900, L500.4050, L100.0100 #### [facility] [address] [place], [address] GFR/1.73 sq M.predicted among non-blacks MDRD (S/P/Bld) [Vol rate/Area] 92 mL/min/{1.73_m2} Normal >60 [facility] Comment on above: Order Comment: Order Date: 02/08/25 Order Info: 0786-1 - CMP Result Comment: mL/m in/1.73m2 CKD-EPI Creatinine Equation (2020) Performed By: #### L 501.7900, L500.4050, L100.0100 #### [facility] [address] [place], [address] Globulin (S) [Mass/Vol] 2.3 g/dL Normal 2.2-4.2 [facility] Comment on above: Order Comment: Order Date: 02/08/25 Order Info: 0786-1 - CMP Performed By: #### L 501.7900, L500.4050, L100.0100 #### [facility] [address] [place], [address] Glucose [Mass/Vol] 75 mg/dL Normal 70-99 [facility] Comment on above: Order Comment: Order Date: 02/08/25 Order Info: 0786-1 - CMP Performed By: #### L 501.7900, L500.4050, L100.0100 #### [facility] [address] [place], [address] Potassium [Moles/Vol] 4.3 mmol/L Normal 3.3-5.1 [facility] Comment on above: Order Comment: Order Date: 02/08/25 Order Info: 0786-1 - CMP Performed By: #### L 501.7900, L500.4050, L100.0100 #### [facility] [address] [place], [address] Sodium [Moles/Vol] 134 mmol/L Normal 133-145 [facility] Comment on above: Order Comment: Order Date: 02/08/25 Order Info: 0786-1 - CMP Performed By: #### L 501.7900, L500.4050, L100.0100 #### [facility] [address] [place], [address] T PROT 6.5 g/dL Normal 5.9-8.4 [facility] Comment on above: Order Comment: Order Date: 02/08/25 Order Info: 0786-1 - CMP Performed By: #### L 501.7900, L500.4050, L100.0100 #### [facility] [address] [place], [address] Urea nitrogen [Mass/Vol] 8 mg/dL Normal 4-19 [facility] Comment on above: Order Comment: Order Date: 02/08/25 Order Info: 0786-1 - CMP Performed By: #### L 501.7900, L500.4050, L100.0100 #### [facility] [address] [place], [address] Vitamin D,25 Hydroxyon 02-08 Vitamin D 25-OH 31.0 ng/mL Normal 30-100 [facility] Comment on above: Order Comment: Order Date: 02/08/25 Order Info: 0786-1 - CMP Result Comment: Carol min D Status Deficiency: <20 ng/mL (50nmol/L) Insufficiency: 20-30 ng/mL (50-75 nmol/L) Sufficiency: 30-100 ng/mL (75-250 nmol/L) Toxicity: >100 ng/mL (>250 nmol/L) Performed By: #### L 501.7700, L506.1001 #### [facility] [address] [place], [address] PSA,Total- Diagnosticon 11-29 PSA, DIAGNOSTIC 1.61 ng/mL Normal 0.0-4.0 [facility] Comment on above: Result Comment: This test was performed using the TPSA assay method for the [employer] chemistry system. Values obtained with different assay methods cannot be used interchangably. When changing PSA assays in the course of monitoring a patient, additional sequential testing should be carried out to confirm baseline values. Performed By: #### L 501.9940 #### [facility] [address] [place], [address] CBC W/Diff, Automatedon 05-28 Absolute Lymph 0.95 X10 3/uL Normal 0.83-4.51 [facility] Comment on above: Order Comment: Order Date: 06/10/24 Order Info: 0184-1 - CBCD Performed By: #### L 100.0100, L500.4050 #### [facility] [address] [place], [address] Absolute Neut 2.0 X10 3/uL Normal 2.0-7.7 [facility] Comment on above: Order Comment: Order Date: 06/10/24 Order Info: 0184-1 - CBCD Performed By: #### L 100.0100, L500.4050 #### [facility] [address] [place], [address] Basophils/100 WBC (Bld) 1.2 % High 0-1 [facility] Comment on above: Order Comment: Order Date: 06/10/24 Order Info: 0184-1 - CBCD Performed By: #### L 100.0100, L500.4050 #### [facility] [address] [place], [address] Eosinophils/100 WBC (Bld) 6.5 % High 0-5 [facility] Comment on above: Order Comment: Order Date: 06/10/24 Order Info: 0184-1 - CBCD Performed By: #### L 100.0100, L500.4050 #### [facility] [address] [place], [address] Erythrocyte distribution width (RBC) [Ratio] 13.6 % Normal 11.6-14.6 [facility] Comment on above: Order Comment: Order Date: 06/10/24 Order Info: 0184-1 - CBCD Performed By: #### L 100.0100, L500.4050 #### [facility] [address] [place], [address] Hematocrit (Bld) [Volume fraction] 41.6 % Normal 40-54 [facility] Comment on above: Order Comment: Order Date: 06/10/24 Order Info: 0184-1 - CBCD Performed By: #### L 100.0100, L500.4050 #### [facility] [address] [place], [address] Hemoglobin (Bld) [Mass/Vol] 13.6 g/dL Normal 13.0-16.5 [facility] Comment on above: Order Comment: Order Date: 06/10/24 Order Info: 0184- - CBCD Performed By: #### L 100.0100, L500.4050 #### [facility] [address] [place], [address] IG% 0.200 Normal 0.0-0.9 [facility] Comment on above: Order Comment: Order Date: 06/10/24 Order Info: 018- - CBCD Result Comment: IG% - Immature Granulocytes (promyelocytes, myelocytes and metamyelocytes) > 1% indicates that a LEFT SHIFT is Present. Performed By: #### L 100.0100, L500.4050 #### [facility] [address] [place], [address] Lymphocytes/100 WBC (Bld) 23.6 % Normal 19-41 [facility] Comment on above: Order Comment: Order Date: 06/10/24 Order Info: 0184- - CBCD Performed By: #### L 100.0100, L500.4050 #### [facility] [address] [place], [address] MCH (RBC) [Entitic mass] 29.4 pg Normal 27.0-32.0 [facility] Comment on above: Order Comment: Order Date: 06/10/24 Order Info: 0184- - CBCD Performed By: #### L 100.0100, L500.4050 #### [facility] [address] [place], [address] MCHC (RBC) [Mass/Vol] 32.7 g/dL Normal 32-36 [facility] Comment on above: Order Comment: Order Date: 06/10/24 Order Info: 0184- - CBCD Performed By: #### L 100.0100, L500.4050 #### [facility] [address] [place], [address] MCV (RBC) [Entitic vol] 89.8 fL Normal 80-94 [facility] Comment on above: Order Comment: Order Date: 06/10/24 Order Info: 0184-1 - CBCD Performed By: #### L 100.0100, L500.4050 #### [facility] [address] [place], [address] Monocytes/100 WBC (Bld) 18.1 % High 0-10 [facility] Comment on above: Order Comment: Order Date: 06/10/24 Order Info: 0184-1 - CBCD Performed By: #### L 100.0100, L500.4050 #### [facility] [address] [place], [address] Neutrophils/100 WBC (Bld) 50.4 % Normal 47-70 [facility] Comment on above: Order Comment: Order Date: 06/10/24 Order Info: 018- - CBCD Performed By: #### L 100.0100, L500.4050 #### [facility] [address] [place], [address] Nucleated RBC (Bld) [#/Vol] 0 10*3/uL Normal 0-5 [facility] Comment on above: Order Comment: Order Date: 06/10/24 Order Info: 0184-1 - CBCD Performed By: #### L 100.0100, L500.4050 #### [facility] [address] [place], [address] Platelet mean volume (Bld) [Entitic vol] 9.5 fL Normal 6.2-12.0 [facility] Comment on above: Order Comment: Order Date: 06/10/24 Order Info: 0184-1 - CBCD Performed By: #### L 100.0100, L500.4050 #### [facility] [address] [place], [address] Platelets (Bld) [#/Vol] 306 10*3/uL Normal 150-450 [facility] Comment on above: Order Comment: Order Date: 06/10/24 Order Info: 0184-1 - CBCD Performed By: #### L 100.0100, L500.4050 #### [facility] [address] [place], [address] RBC (Bld) [#/Vol] 4.63 10*6/uL Normal 4.6-6.2 [facility] Comment on above: Order Comment: Order Date: 06/10/24 Order Info: 0184- - CBCD Performed By: #### L 100.0100, L500.4050 #### [facility] [address] [place], [address] RDW SD 44.6 fl High 35.1-43.9 [facility] Comment on above: Order Comment: Order Date: 06/10/24 Order Info: 0184- - CBCD Performed By: #### L 100.0100, L500.4050 #### [facility] [address] [place], [address] WBC (Bld) [#/Vol] 4.0 10*3/uL Low 4.4-11.0 [facility] Comment on above: Order Comment: Order Date: 06/10/24 Order Info: 0184- - CBCD Performed By: #### L 100.0100, L500.4050 #### [facility] [address] [place], [address] Comprehensive Metabolic Prof ilon 06-10-2024 Albumin [Mass/Vol] 3.7 g/dL Normal 3.2-5.0 [facility] Comment on above: Order Comment: Order Date: 06/10/24 Order Info: 0786-1 - CMP dizziness, fatigue Performed By: #### L 100.0100, L500.4050 #### [facility] [address] [place], [address] Albumin/Globulin [Mass ratio] 1.3 {ratio} Normal 0.9-2.4 [facility] Comment on above: Order Comment: Order Date: 06/10/24 Order Info: 0786-1 - CMP dizziness, fatigue Performed By: #### L 100.0100, L500.4050 #### [facility] [address] [place], [address] ALK P 87 U/L Normal 45-117 [facility] Comment on above: Order Comment: Order Date: 06/10/24 Order Info: 0786-1 - CMP dizziness, fatigue Performed By: #### L 100.0100, L500.4050 #### [facility] [address] [place], [address] ALT [Catalytic activity/Vol] 21 U/L Normal 16-61 [facility] Comment on above: Order Comment: Order Date: 06/10/24 Order Info: 0786-1 - CMP dizziness, fatigue Performed By: #### L 100.0100, L500.4050 #### [facility] [address] [place], [address] AST [Catalytic activity/Vol] 16 U/L Normal 15-37 [facility] Comment on above: Order Comment: Order Date: 06/10/24 Order Info: 0786-1 - CMP dizziness, fatigue Performed By: #### L 100.0100, L500.4050 #### [facility] [address] [place], [address] Bilirubin [Mass/Vol] 0.30 mg/dL Normal 0.20-1.00 [facility] Comment on above: Order Comment: Order Date: 06/10/24 Order Info: 0786-1 - CMP dizziness, fatigue Result Comment: For patients on eltrombopag therapy, use of Dimension [place] TBIL is not recommended. Performed By: #### L 100.0100, L500.4050 #### [facility] [address] [place], [address] BUN/CRE 9.1 RATIO Low 10-20 [facility] Comment on above: Order Comment: Order Date: 06/10/24 Order Info: 0786-1 - CMP dizziness, fatigue Performed By: #### L 100.0100, L500.4050 #### [facility] [address] [place], [address] CA,Total 8.9 mg/dL Normal 8.5-10.1 [facility] Comment on above: Order Comment: Order Date: 06/10/24 Order Info: 0786-1 - CMP dizziness, fatigue Performed By: #### L 100.0100, L500.4050 #### [facility] [address] [place], [address] Chloride [Moles/Vol] 98 mmol/L Normal 98-107 [facility] Comment on above: Order Comment: Order Date: 06/10/24 Order Info: 0786-1 - CMP dizziness, fatigue Performed By: #### L 100.0100, L500.4050 #### [facility] [address] [place], [address] CO2 [Moles/Vol] 23.0 mmol/L Normal 21.0-32.0 [facility] Comment on above: Order Comment: Order Date: 06/10/24 Order Info: 0786-1 - CMP dizziness, fatigue Performed By: #### L 100.0100, L500.4050 #### [facility] [address] [place], [address] Creatinine [Mass/Vol] 0.77 mg/dL Normal 0.70-1.30 [facility] Comment on above: Order Comment: Order Date: 06/10/24 Order Info: 0786-1 - CMP dizziness, fatigue Result Comment: The validity of the calculated GFR GFRAA in patients over 70 years has not been determined. Clinical correlation is essential. Performed By: #### L 100.0100, L500.4050 #### [facility] [address] [place], [address] EST GFR - AA 127 mL/min Normal >60 [facility] Comment on above: Order Comment: Order Date: 06/10/24 Order Info: 0786-1 - CMP dizziness, fatigue Result Comment: Afri can Palauan GFR Calc Performed By: #### L 100.0100, L500.4050 #### [facility] [address] [place], [address] GAP 12 Normal 5-15 [facility] Comment on above: Order Comment: Order Date: 06/10/24 Order Info: 0786-1 - CMP dizziness, fatigue Performed By: #### L 100.0100, L500.4050 #### [facility] [address] [place], [address] GFR/1.73 sq M.predicted among non-blacks MDRD (S/P/Bld) [Vol rate/Area] 105 mL/min/{1.73_m2} Normal >60 [facility] Comment on above: Order Comment: Order Date: 06/10/24 Order Info: 0786-1 - CMP dizziness, fatigue Result Comment: Non- GFR Calc Performed By: #### L 100.0100, L500.4050 #### [facility] [address] [place], [address] Globulin (S) [Mass/Vol] 2.9 g/dL Normal 2.2-4.2 [facility] Comment on above: Order Comment: Order Date: 06/10/24 Order Info: 0786-1 - CMP dizziness, fatigue Performed By: #### L 100.0100, L500.4050 #### [facility] [address] [place], [address] Glucose [Mass/Vol] 93 mg/dL Normal 74-106 [facility] Comment on above: Order Comment: Order Date: 06/10/24 Order Info: 0786-1 - CMP dizziness, fatigue Performed By: #### L 100.0100, [id number] #### [facility] [address] [place], [address] Potassium [Moles/Vol] 4.6 mmol/L Normal 3.5-5.1 [facility] Comment on above: Order Comment: Order Date: 06/10/24 Order Info: 0786-1 - CMP dizziness, fatigue Performed By: #### L 100.0100, L500.4050 #### [facility] [address] [place], [address] Sodium [Moles/Vol] 133 mmol/L Low 136-145 [facility] Comment on above: Order Comment: Order Date: 06/10/24 Order Info: 0786-1 - CMP dizziness, fatigue Performed By: #### L 100.0100, L500.4050 #### [facility] [address] [place], [address] T PROT 6.6 g/dL Normal 6.4-8.2 [facility] Comment on above: Order Comment: Order Date: 06/10/24 Order Info: 0786-1 - CMP dizziness, fatigue Performed By: #### L 100.0100, [id number] #### [facility] [address] [place], [address] Urea nitrogen [Mass/Vol] 7 mg/dL Normal 7-18 [facility] Comment on above: Order Comment: Order Date: 06/10/24 Order Info: 0786-1 - CMP dizziness, fatigue Performed By: #### L 100.0100, L500.4050 #### [facility] [address] [place], [address] Serum Creatinine AND GFRon 0 06-09-2024 Creatinine [Mass/Vol] 0.82 mg/dL Normal 0.70-1.30 [facility] Comment on above: Result Comment: The validity of the calculated GFR GFRAA in patients over 70 years has not been determined. Clinical correlation is essential. Performed By: #### L 501.1105 #### [facility] [address] [place], [place], [id number] EST GFR - AA 118 mL/min Normal >60 [facility] Comment on above: Result Comment: Afri can Palauan GFR Calc Performed By: #### L 501.1105 #### [facility] [address] [place], [place], [id number] GFR/1.73 sq M.predicted among non-blacks MDRD (S/P/Bld) [Vol rate/Area] 98 mL/min/{1.73_m2} Normal >60 [facility] Comment on above: Result Comment: Non- GFR Calc Performed By: #### L 501.1105 #### [facility] [address] [place], [place], [id number] Absolute lymphocyte countOrd ered By: Julio Rene on 01-02-2024 Lymphocytes Auto (Unsp spec) [#/Vol] 1.01 10*3/uL 0.83-4.51 [facility] Albumin Elph [Mass/Vol]Order ed By: Julio Rene on 01-02-2024 Albumin [Mass/Vol] 3.9 g/dL 2.9-4.4 [facility] Automated lymphocyte count a s percentage of total leukocytesOrdered By: Julio Rene on 01-02-2024 Lymphocytes/100 WBC Auto (Unsp spec) 26.5 % 19-41 [facility] Basophil percentageOrdered B y: Julio Rene on 01-02-2024 Basophil percentage < 10.0 IU/mL <15 [facility] Basophils/100 WBC (Bld) 1.0 % 0-1 [facility] Bilirubin [Mass/Vol] 0.40 mg/dL 0.20-1.00 [facility] Comment on above: For patients on eltr ombopag therapy, use of Dimension [place] TBIL is not recommended. Chloride [Moles/Vol] 98 mmol/L 98-107 [facility] Eosinophils/100 WBC (Bld) 7.6 % 0-5 [facility] Glucose [Mass/Vol] 92 mg/dL 74-106 [facility] Hemoglobin (Bld) [Mass/Vol] 14.0 g/dL 13.0-16.5 [facility] Monocytes/100 WBC (Bld) 18.6 % 0-10 [facility] Neutrophils (Bld) [#/Vol] 1.8 10*3/uL 2.0-7.7 [facility] Neutrophils/100 WBC (Bld) 46.0 % 47-70 [facility] Potassium [Moles/Vol] 3.9 mmol/L 3.5-5.1 [facility] Protein [Mass/Vol] 6.9 g/dL 6.4-8.2 [facility] Sodium [Moles/Vol] 134 mmol/L 136-145 [facility] WBC (Bld) [#/Vol] 3.8 10*3/uL 4.4-11.0 [facility] Determination of erythrocyte mean corpuscular volume (MCV)Ordered By: Julio Rene on 01-02-2024 MCV (RBC) [Entitic vol] 90.0 fL 80-94 [facility] Erythrocyte distribution wid th ratioOrdered By: Julio Rene on 01-02-2024 Erythrocyte distribution width (RBC) [Ratio] 13.6 % 11.6-14.6 [facility] Erythrocyte distribution wid th standard deviationOrdered By: Julio Rene on 01-02-2024 Erythrocyte distribution width (RBC) [Entitic vol] 44.6 fL 35.1-43.9 [facility] Hematocrit Auto (Bld) [Volum e fraction]Ordered By: Julio Rene on 01-02-2024 Hematocrit (Bld) [Volume fraction] 43.0 % 40-54 [facility] Immature granulocytes/100 WB C Auto (Bld)Ordered By: Julio Rene on 01-02-2024 Immature granulocytes/100 WBC (Bld) 0.300 % 0.0-0.9 [facility] Comment on above: IG% - Immature Granu locytes (promyelocytes, myelocytes and metamyelocytes) > 1% indicates that a LEFT SHIFT is Present. Laboratory - Chemistry and C hemistry - challengeOrdered By: Julio Rene on 01-02-2024 Albumin/Globulin [Mass ratio] 1.2 {ratio} 0.9-2.4 [facility] ALP [Catalytic activity/Vol] 82 U/L 45-117 [facility] ALT [Catalytic activity/Vol] 24 U/L 16-61 [facility] CO2 [Moles/Vol] 26.0 mmol/L 21.0-32.0 [facility] Globulin (S) [Mass/Vol] 3.2 g/dL 2.2-4.2 [facility] Urea nitrogen/Creatinine [Mass ratio] 10.4 mg/mg 10-20 [facility] - Hematology and Cell countsOrdered By: Julio Rene on 01-02-2024 MCH (RBC) [Entitic mass] 29.3 pg 27.0-32.0 [facility] MCHC (RBC) [Mass/Vol] 32.6 g/dL 32-36 [facility] Nucleated RBC/100 WBC (Bld) [Ratio] 0 % 0-5 [facility] Platelet mean volume (Bld) [Entitic vol] 8.6 fL 6.2-12.0 [facility] Platelets (Bld) [#/Vol] 293 10*3/uL 150-450 [facility] No Panel InformationOrdered By: Julio Rene on 01-02-2024 Hdxbl-1-Kbahihmhl 0.2 g/dL 0.0-0.4 [facility] Clznv-0-Xiztxkceh 0.8 g/dL 0.4-1.0 [facility] Anti-Nuclear Antibody Screen Negative Negative [facility] Comment on above: Performed at: [address] [id number] Director: Jorge Scanlon PhD, Phone: [phone] C-Reactive Protein Extended Range < 2.90 mg/L 0.0-3.0 [facility] Comment on above: C-Reactive Protein ( CRP) provides useful information for thediagnosis, therapy and monitoring of inflammatory processesand associated diseases. For the evaluation of Relative Riskfor Cardiovascular Disease, a High Sensitivity CRP (HSCRP)should be ordered. Estimated GFR (MDRD) Amer 148 mL/min >60 [facility] Comment on above: GFR Calc Estimated GFR (MDRD) Non-Af Amer 122 mL/min >60 [facility] Comment on above: Non- GFR Calc Gamma Globulins 0.4 g/dL 0.4-1.8 [facility] Protein Fractions Elph [Inte rp]Ordered By: Julio Rene on 01-02-2024 Protein Fractions [Interp] Comment . [facility] Comment on above: Protein electrophore sis scan will follow via computer,mail, or charge lpn delivery. RBC Auto (Bld) [#/Vol]Ordere d By: Julio Rene on 01-02-2024 RBC (Bld) [#/Vol] 4.78 10*6/uL 4.6-6.2 [facility] Serum albumin to globulin ra yari by protein electrophoresisOrdered By: Julio Rene on 01-02-2024 Albumin/Globulin Elph [Mass ratio] 1.5 0.7-1.7 [facility] Serum globulin measurement ( mass/volume)Ordered By: Julio Rene on 01-02-2024 Globulin (S) [Mass/Vol] 2.6 g/dL 2.2-3.9 [facility] Serum or plasma beta globuli n measurement by electrophoresis (mass/volume)Ordered By: Julio Rene on 01-02-2024 Beta globulin Elph [Mass/Vol] 1.1 g/dL 0.7-1.3 [facility] Serum or plasma calcium veena urement (mass/volume)Ordered By: Julio Rene on 01-02-2024 Calcium [Mass/Vol] 8.7 mg/dL 8.5-10.1 [facility] Serum or plasma creatinine m easurement (mass/volume)Ordered By: Julio Rene on 01-02-2024 Creatinine [Mass/Vol] 0.67 mg/dL 0.70-1.30 [facility] Comment on above: The validity of the calculated GFR & GFRAA in patients over 70 years has not been determined. Clinical correlation is essential. Serum or plasma protein mono clonal measurement by electrophoresis (mass/volume)Ordered By: Julio Rene on 01-02-2024 Protein.monoclonal Elph [Mass/Vol] Comment: g/dL Not Observed [facility] Comment on above: SPE shows asymmetric al beta and gamma regions. Serum or plasma thyroid stim ulating hormone (TSH) measurement (units/volume)Ordered By: Julio Rene on 01-02-2024 TSH Qn 1.93 uIU/mL 0.358-3.74 [facility] Serum or plasma urea nitroge n measurement (mass/volume)Ordered By: Julio Rene on 01-02-2024 Urea nitrogen [Mass/Vol] 7 mg/dL 7-18 [facility] Thin prep Papanicolaou smear with manual screeningOrdered By: Julio Rene on 01-02-2024 Thin prep Papanicolaou smear with manual screening 3.7 g/dL 3.2-5.0 [facility] Thin prep Papanicolaou smear with manual screening 19 U/L 15-37 [facility] Thin prep Papanicolaou smear with manual screening 10 5-15 [facility] Thin prep Papanicolaou smear with manual screening 0.72 ng/dL 0.76-1.46 [facility] Total protein bloodOrdered B y: Julio Rene on 01-02-2024 Protein [Mass/Vol] 6.5 g/dL 6.0-8.5 [facility] Absolute lymphocyte countOrd ered By: Julio Rene on 08-09-2023 Lymphocytes Auto (Unsp spec) [#/Vol] 1.05 10*3/uL 0.83-4.51 [facility] Basophil percentageOrdered B y: Julio Rene on 08-09-2023 Basophils/100 WBC (Bld) 1.6 % 0-1 [facility] Bilirubin [Mass/Vol] 0.30 mg/dL 0.20-1.00 [facility] Comment on above: For patients on eltr ombopag therapy, use of Dimension [place] TBIL is not recommended. Chloride [Moles/Vol] 100 mmol/L 98-107 [facility] Cholesterol [Mass/Vol] 192 mg/dL <200 [facility] Comment on above: <200 mg/dL Desirable 200-240 mg/dL Borderline >240 mg/dL High Risk Eosinophils/100 WBC (Bld) 8.6 % 0-5 [facility] Glucose [Mass/Vol] 88 mg/dL 74-106 [facility] Neutrophils (Bld) [#/Vol] 1.7 10*3/uL 2.0-7.7 [facility] Neutrophils/100 WBC (Bld) 44.7 % 47-70 [facility] Potassium [Moles/Vol] 3.7 mmol/L 3.5-5.1 [facility] Protein [Mass/Vol] 6.5 g/dL 6.4-8.2 [facility] Sodium [Moles/Vol] 135 mmol/L 136-145 [facility] Triglyceride [Mass/Vol] 59 mg/dL <199 [facility] Comment on above: The drugs N-Acetylcy steine and Metamizole may falsely depress this assay.Serum Triglycerides Reference Interval Normal <150 mg/dL Borderline high 150 - 199 mg/dL High 200 - 499 mg/dL Very High > or = 500 mg/dL WBC (Bld) [#/Vol] 3.8 10*3/uL 4.4-11.0 [facility] Blood erythrocytes count (nu mber/volume)Ordered By: Julio Rene on 08-09-2023 RBC (Bld) [#/Vol] 4.64 10*6/uL 4.6-6.2 [facility] Blood hemoglobin measurement (mass/volume)Ordered By: Julio Rene on 08-09-2023 Hemoglobin (Bld) [Mass/Vol] 13.7 g/dL 13.0-16.5 [facility] Blood lymphocytes/100 leukoc ytesOrdered By: Julio Rene on 08-09-2023 Lymphocytes/100 WBC (Bld) 27.5 % 19-41 [facility] Blood monocytes/100 leukocyt esOrdered By: Julio Rene on 08-09-2023 Monocytes/100 WBC (Bld) 17.3 % 0-10 [facility] Blood platelet mean volumeOr dered By: Julio Rene on 08-09-2023 Platelet mean volume (Bld) [Entitic vol] 9.0 fL 6.2-12.0 [facility] Determination of erythrocyte mean corpuscular volume (MCV)Ordered By: Julio Rene on 08-09-2023 MCV (RBC) [Entitic vol] 92.9 fL 80-94 [facility] Hematocrit Auto (Bld) [Volum e fraction]Ordered By: Julio Rene on 08-09-2023 Hematocrit (Bld) [Volume fraction] 43.1 % 40-54 [facility] - Chemistry and C hemistry - challengeOrdered By: Julio Rene on 08-09-2023 Albumin [Mass/Vol] 3.9 g/dL 2.9-4.4 [facility] ALP [Catalytic activity/Vol] 88 U/L 45-117 [facility] ALT [Catalytic activity/Vol] 23 U/L 16-61 [facility] CO2 [Moles/Vol] 30.0 mmol/L 21.0-32.0 [facility] Cobalamin (Vitamin B12) [Mass/Vol] 380 pg/mL 211-911 [facility] Globulin (S) [Mass/Vol] 2.8 g/dL 2.2-4.2 [facility] Urea nitrogen/Creatinine [Mass ratio] 13.0 mg/mg 10-20 [facility] - Hematology and Cell countsOrdered By: Julio Rene on 08-09-2023 Erythrocyte distribution width (RBC) [Entitic vol] 47.7 fL 35.1-43.9 [facility] Erythrocyte distribution width (RBC) [Ratio] 13.8 % 11.6-14.6 [facility] Immature granulocytes/100 WBC (Bld) 0.300 % 0.0-0.9 [facility] Comment on above: IG% - Immature Granu locytes (promyelocytes, myelocytes and metamyelocytes) > 1% indicates that a LEFT SHIFT is Present. MCH (RBC) [Entitic mass] 29.5 pg 27.0-32.0 [facility] Nucleated RBC/100 WBC (Bld) [Ratio] 0 % 0-5 [facility] MCHC Auto (RBC) [Mass/Vol]Or dered By: Julio Rene on 08-09-2023 MCHC (RBC) [Mass/Vol] 31.8 g/dL 32-36 [facility] No Panel InformationOrdered By: Julio Rene on 08-09-2023 Vwprl-2-Nchrgayqh 0.2 g/dL 0.0-0.4 [facility] Fblua-8-Whulprmus 0.7 g/dL 0.4-1.0 [facility] Estimated GFR (MDRD) Amer 143 mL/min >60 [facility] Comment on above: GFR Calc Estimated GFR (MDRD) Non-Af Amer 118 mL/min >60 [facility] Comment on above: Non- GFR Calc Gamma Globulins 0.3 g/dL 0.4-1.8 [facility] Prostate Specific Antigen Total 1.39 ng/mL 0.0-4.0 [facility] Comment on above: This test was perfor med using the TPSA assay method for Reissued chemistry system. Values obtained with differentassay methods cannot be used interchangably.When changing PSA assays in the course of monitoring apatient, additional sequential testing should be carriedout to confirm baseline values. Platelets bldOrdered By: Lisy Rene on 08-09-2023 Platelets (Bld) [#/Vol] 318 10*3/uL 150-450 [facility] Protein Fractions Elph [Inte rp]Ordered By: Julio Rene on 08-09-2023 Protein Fractions [Interp] Comment . [facility] Comment on above: Protein electrophore sis scan will follow via computer,mail, or charge lpn delivery. Serum albumin to globulin ra yari by protein electrophoresisOrdered By: Julio Rene on 08-09-2023 Albumin/Globulin Elph [Mass ratio] 1.6 0.7-1.7 [facility] Serum globulin measurement ( mass/volume)Ordered By: Julio Rene on 08-09-2023 Globulin (S) [Mass/Vol] 2.4 g/dL 2.2-3.9 [facility] Serum or plasma albumin veena urement (mass/volume)Ordered By: Julio Rene on 08-09-2023 Albumin [Mass/Vol] 3.7 g/dL 3.2-5.0 [facility] Serum or plasma albumin/glob ulin mass ratioOrdered By: Julio Rene on 08-09-2023 Albumin/Globulin [Mass ratio] 1.3 {ratio} 0.9-2.4 [facility] Serum or plasma beta globuli n measurement by electrophoresis (mass/volume)Ordered By: Julio Rene on 08-09-2023 Beta globulin Elph [Mass/Vol] 1.1 g/dL 0.7-1.3 [facility] Serum or plasma calcium veena urement (mass/volume)Ordered By: Julio Rene on 08-09-2023 Calcium [Mass/Vol] 8.7 mg/dL 8.5-10.1 [facility] Serum or plasma cholesterol in HDL measurement (mass/volume)Ordered By: Julio Rene on 08-09-2023 Cholesterol in HDL [Mass/Vol] 76 mg/dL >40 [facility] Comment on above: The drugs N-Acetylcy steine and Metamizole may falsely depress this assay. Reference Range HDL <40 mg/dL Low HDL Cholesterol HDL >or= 60 mg/dL High HDL Cholesterol Serum or plasma cholesterol in VLDL measurement (mass/volume)Ordered By: Julio Rene on 08-09-2023 Cholesterol in VLDL [Mass/Vol] 12 mg/dL 5-40 [facility] Serum or plasma creatinine m easurement (mass/volume)Ordered By: Julio Rene on 08-09-2023 Creatinine [Mass/Vol] 0.69 mg/dL 0.70-1.30 [facility] Comment on above: The validity of the calculated GFR & GFRAA in patients over 70 years has not been determined. Clinical correlation is essential. Serum or plasma folate measu rement (mass/volume)Ordered By: Julio Rene on 08-09-2023 Folate [Mass/Vol] 4.70 ng/mL 3.1-55.4 [facility] Serum or plasma low density lipoprotein (LDL) cholesterol measurement (mass/volume)Ordered By: Julio Rene on 08-09-2023 Cholesterol in LDL [Mass/Vol] 104 mg/dL 0-130 [facility] Serum or plasma urea nitroge n measurement (mass/volume)Ordered By: Julio Rene on 08-09-2023 Urea nitrogen [Mass/Vol] 9 mg/dL 7-18 [facility] Thin prep Papanicolaou smear with manual screeningOrdered By: Julio Rene on 08-09-2023 Thin prep Papanicolaou smear with manual screening 11 U/L 15-37 [facility] Thin prep Papanicolaou smear with manual screening 5 5-15 [facility] Thin prep Papanicolaou smear with manual screening See comment [facility] Comment on above: asymmetrical beta-ga mma region Total protein bloodOrdered B y: Julio Rene on 08-09-2023 Protein [Mass/Vol] 6.3 g/dL 6.0-8.5 [facility] Absolute lymphocyte countOrd ered By: Julio Rene on 05-15-2023 Lymphocytes Auto (Unsp spec) [#/Vol] 1.03 10*3/uL 0.83-4.51 [facility] Basophil percentageOrdered B y: Julio Rene on 05-15-2023 Basophils/100 WBC (Bld) 1.5 % 0-1 [facility] Chloride [Moles/Vol] 98 mmol/L 98-107 [facility] Eosinophils/100 WBC (Bld) 5.1 % 0-5 [facility] Glucose [Mass/Vol] 94 mg/dL 74-106 [facility] Neutrophils (Bld) [#/Vol] 1.9 10*3/uL 2.0-7.7 [facility] Neutrophils/100 WBC (Bld) 48.7 % 47-70 [facility] Potassium [Moles/Vol] 4.0 mmol/L 3.5-5.1 [facility] Sodium [Moles/Vol] 134 mmol/L 136-145 [facility] WBC (Bld) [#/Vol] 3.9 10*3/uL 4.4-11.0 [facility] Blood erythrocytes count (nu mber/volume)Ordered By: Julio Rene on 05-15-2023 RBC (Bld) [#/Vol] 4.79 10*6/uL 4.6-6.2 [facility] Blood hemoglobin measurement (mass/volume)Ordered By: Julio Rene on 05-15-2023 Hemoglobin (Bld) [Mass/Vol] 14.2 g/dL 13.0-16.5 [facility] Blood lymphocytes/100 leukoc ytesOrdered By: Julio Rene on 05-15-2023 Lymphocytes/100 WBC (Bld) 26.1 % 19-41 [facility] Blood monocytes/100 leukocyt esOrdered By: Julio Rene on 05-15-2023 Monocytes/100 WBC (Bld) 18.3 % 0-10 [facility] Blood platelet mean volumeOr dered By: Julio Rene on 05-15-2023 Platelet mean volume (Bld) [Entitic vol] 8.9 fL 6.2-12.0 [facility] Determination of erythrocyte mean corpuscular volume (MCV)Ordered By: Julio Rene on 05-15-2023 MCV (RBC) [Entitic vol] 90.4 fL 80-94 [facility] Hematocrit Auto (Bld) [Volum e fraction]Ordered By: Julio Rene on 05-15-2023 Hematocrit (Bld) [Volume fraction] 43.3 % 40-54 [facility] - Chemistry and C hemistry - challengeOrdered By: Julio Rene on 05-15-2023 CO2 [Moles/Vol] 29.0 mmol/L 21.0-32.0 [facility] Urea nitrogen/Creatinine [Mass ratio] 9.5 mg/mg 10-20 [facility] - Hematology and Cell countsOrdered By: Julio Rene on 05-15-2023 Erythrocyte distribution width (RBC) [Entitic vol] 46.7 fL 35.1-43.9 [facility] Erythrocyte distribution width (RBC) [Ratio] 14.1 % 11.6-14.6 [facility] Immature granulocytes/100 WBC (Bld) 0.300 % 0.0-0.9 [facility] Comment on above: IG% - Immature Granu locytes (promyelocytes, myelocytes and metamyelocytes) > 1% indicates that a LEFT SHIFT is Present. MCH (RBC) [Entitic mass] 29.6 pg 27.0-32.0 [facility] Nucleated RBC/100 WBC (Bld) [Ratio] 0 % 0-5 [facility] MCHC Auto (RBC) [Mass/Vol]Or dered By: Julio Rene on 05-15-2023 MCHC (RBC) [Mass/Vol] 32.8 g/dL 32-36 [facility] No Panel InformationOrdered By: Julio Rene on 05-15-2023 Estimated GFR (MDRD) Amer 114 mL/min >60 [facility] Comment on above: GFR Calc Estimated GFR (MDRD) Non-Af Amer 94 mL/min >60 [facility] Comment on above: Non- GFR Calc Vitamin D 25-Hydroxy 33.7 ng/mL [facility] Comment on above: Vitamin D 25(OH) Sta tus Range Deficiency <20 ng/mL (50nmol/L) Insufficiency 20 - 30 ng/mL (50 - 75 nmol/L) Sufficiency 30 - 100 ng/mL (75 - 250 nmol/L) Toxicity >100 ng/mL (>250 nmol/L) Platelets bldOrdered By: Lisy Rene on 05-15-2023 Platelets (Bld) [#/Vol] 280 10*3/uL 150-450 [facility] Serum or plasma calcium veena urement (mass/volume)Ordered By: Julio Rene on 05-15-2023 Calcium [Mass/Vol] 8.7 mg/dL 8.5-10.1 [facility] Serum or plasma creatinine m easurement (mass/volume)Ordered By: Julio Rene on 05-15-2023 Creatinine [Mass/Vol] 0.84 mg/dL 0.70-1.30 [facility] Comment on above: The validity of the calculated GFR & GFRAA in patients over 70 years has not been determined. Clinical correlation is essential. Serum or plasma phenytoin me asurement (mass/volume)Ordered By: Julio Rene on 05-15-2023 Phenytoin [Mass/Vol] 19.2 mL 10.0-20.0 [facility] Serum or plasma urea nitroge n measurement (mass/volume)Ordered By: Julio Rene on 05-15-2023 Urea nitrogen [Mass/Vol] 8 mg/dL 7-18 [facility] Thin prep Papanicolaou smear with manual screeningOrdered By: Julio Rene on 05-15-2023 Thin prep Papanicolaou smear with manual screening 7 5-15 [facility] Absolute lymphocyte countOrd ered By: Dr. Rene on 02-08-2023 Lymphocytes Auto (Unsp spec) [#/Vol] 1.07 10*3/uL 0.83-4.51 [facility] Basophil percentageOrdered B y: Dr. Rene on 02-08-2023 Basophils/100 WBC (Bld) 1.3 % 0-1 [facility] Bilirubin [Mass/Vol] 0.30 mg/dL 0.20-1.00 [facility] Comment on above: For patients on eltr ombopag therapy, use of Dimension [place] TBIL is not recommended. Chloride [Moles/Vol] 103 mmol/L 98-107 [facility] Eosinophils/100 WBC (Bld) 7.2 % 0-5 [facility] Glucose [Mass/Vol] 101 mg/dL 74-106 [facility] Comment on above: Fasting Glucose resu lt from 100 to 125 mg/dL suggests IMPAIRED HOMEOSTASIS per A.D.A. criteria. Neutrophils (Bld) [#/Vol] 2.4 10*3/uL 2.0-7.7 [facility] Neutrophils/100 WBC (Bld) 51.6 % 47-70 [facility] Potassium [Moles/Vol] 3.9 mmol/L 3.5-5.1 [facility] Protein [Mass/Vol] 6.6 g/dL 6.4-8.2 [facility] Sodium [Moles/Vol] 135 mmol/L 136-145 [facility] WBC (Bld) [#/Vol] 4.6 10*3/uL 4.4-11.0 [facility] Blood erythrocytes count (nu mber/volume)Ordered By: Dr. Rene on 02-08-2023 RBC (Bld) [#/Vol] 4.68 10*6/uL 4.6-6.2 [facility] Blood hemoglobin measurement (mass/volume)Ordered By: Dr. Rene on 02-08-2023 Hemoglobin (Bld) [Mass/Vol] 13.8 g/dL 13.0-16.5 [facility] Blood lymphocytes/100 leukoc ytesOrdered By: Dr. Rene on 02-08-2023 Lymphocytes/100 WBC (Bld) 23.2 % 19-41 [facility] Blood monocytes/100 leukocyt esOrdered By: Dr. Rene on 02-08-2023 Monocytes/100 WBC (Bld) 16.7 % 0-10 [facility] Blood platelet mean volumeOr dered By: Dr. Rene on 02-08-2023 Platelet mean volume (Bld) [Entitic vol] 9.1 fL 6.2-12.0 [facility] Determination of erythrocyte mean corpuscular volume (MCV)Ordered By: Dr. Rene on 02-08-2023 MCV (RBC) [Entitic vol] 91.0 fL 80-94 [facility] Hematocrit Auto (Bld) [Volum e fraction]Ordered By: Dr. Rene on 02-08-2023 Hematocrit (Bld) [Volume fraction] 42.6 % 40-54 [facility] Laboratory - Chemistry and C hemistry - challengeOrdered By: Dr. Rene on 02-08-2023 ALP [Catalytic activity/Vol] 102 U/L 45-117 [facility] ALT [Catalytic activity/Vol] 27 U/L 16-61 [facility] CO2 [Moles/Vol] 29.0 mmol/L 21.0-32.0 [facility] Cobalamin (Vitamin B12) [Mass/Vol] 380 pg/mL 211-911 [facility] Globulin (S) [Mass/Vol] 3.1 g/dL 2.2-4.2 [facility] Urea nitrogen/Creatinine [Mass ratio] 11.7 mg/mg 10-20 [facility] Laboratory - Hematology and Cell countsOrdered By: Dr. Rene on 02-08-2023 Erythrocyte distribution width (RBC) [Entitic vol] 48.5 fL 35.1-43.9 [facility] Erythrocyte distribution width (RBC) [Ratio] 14.6 % 11.6-14.6 [facility] Immature granulocytes/100 WBC (Bld) 0.000 % 0.0-0.9 [facility] Comment on above: IG% - Immature Granu locytes (promyelocytes, myelocytes and metamyelocytes) > 1% indicates that a LEFT SHIFT is Present. MCH (RBC) [Entitic mass] 29.5 pg 27.0-32.0 [facility] Nucleated RBC/100 WBC (Bld) [Ratio] 0 % 0-5 [facility] MCHC Auto (RBC) [Mass/Vol]Or dered By: Dr. Rene on 02-08-2023 MCHC (RBC) [Mass/Vol] 32.4 g/dL 32-36 [facility] No Panel InformationOrdered By: Dr. Rene on 02-08-2023 Estimated GFR (MDRD) Amer 113 mL/min >60 [facility] Comment on above: GFR Calc Estimated GFR (MDRD) Non-Af Amer 93 mL/min >60 [facility] Comment on above: Non- GFR Calc Vitamin D 25-Hydroxy 29.9 ng/mL [facility] Comment on above: Vitamin D 25(OH) Sta tus Range Deficiency <20 ng/mL (50nmol/L) Insufficiency 20 - 30 ng/mL (50 - 75 nmol/L) Sufficiency 30 - 100 ng/mL (75 - 250 nmol/L) Toxicity >100 ng/mL (>250 nmol/L) Platelets bldOrdered By: Dr. Rene on 02-08-2023 Platelets (Bld) [#/Vol] 325 10*3/uL 150-450 [facility] Serum or plasma albumin veena urement (mass/volume)Ordered By: Dr. Rene on 02-08-2023 Albumin [Mass/Vol] 3.5 g/dL 3.2-5.0 [facility] Serum or plasma albumin/glob ulin mass ratioOrdered By: Dr. Rene on 02-08-2023 Albumin/Globulin [Mass ratio] 1.1 {ratio} 0.9-2.4 [facility] Serum or plasma calcium veena urement (mass/volume)Ordered By: Dr. Rene on 02-08-2023 Calcium [Mass/Vol] 8.8 mg/dL 8.5-10.1 [facility] Serum or plasma creatinine m easurement (mass/volume)Ordered By: Dr. Rene on 02-08-2023 Creatinine [Mass/Vol] 0.85 mg/dL 0.70-1.30 [facility] Comment on above: The validity of the calculated GFR & GFRAA in patients over 70 years has not been determined. Clinical correlation is essential. Serum or plasma folate measu rement (mass/volume)Ordered By: Dr. Rene on 02-08-2023 Folate [Mass/Vol] 8.60 ng/mL 3.1-55.4 [facility] Serum or plasma phenytoin me asurement (mass/volume)Ordered By: Dr. Rene on 02-08-2023 Phenytoin [Mass/Vol] 14.9 mL 10.0-20.0 [facility] Serum or plasma urea nitroge n measurement (mass/volume)Ordered By: Dr. Rene on 02-08-2023 Urea nitrogen [Mass/Vol] 10 mg/dL 7-18 [facility] Thin prep Papanicolaou smear with manual screeningOrdered By: Dr. Rene on 02-08-2023 Thin prep Papanicolaou smear with manual screening 20 U/L 15-37 [facility] Thin prep Papanicolaou smear with manual screening 3 5-15 [facility] Laboratory - Chemistry and C hemistry - challengeon 08-01-2022 Cobalamin (Vitamin B12) [Mass/Vol] 366 pg/mL 211-911 [facility] Work Phone: No Panel Informationon 08-01 Miscellaneous Test See comment [facility] Work Phone: Comment on above: TEST RESULT LIMITSPh enytoin,Free and Total,SerumPhenytoin, Serum 13.6 ug/mL 10.0-20.0 Detection Limit = 0.8 <0.8 Indicates None DetectedTest not performed. Insufficient specimen to perform or complete analysis. TEST: [id number] Phenytoin, Free, Serum Panel: [id number] ____ TESTING PERFORMED AT [facility]. ORIGINAL REPORT ON FILE IN LAB CONTAINS ADDITIONAL TEST SITE INFORMATION. Vitamin D 25-Hydroxy 40.0 ng/mL [facility] Work Phone: Comment on above: Vitamin D 25(OH) Sta tus Range Deficiency <20 ng/mL (50nmol/L) Insufficiency 20 - 30 ng/mL (50 - 75 nmol/L) Sufficiency 30 - 100 ng/mL (75 - 250 nmol/L) Toxicity >100 ng/mL (>250 nmol/L) Basophil percentageon 2021 Bilirubin [Mass/Vol] 0.20 mg/dL 0.20-1.00 [facility] Work Phone: Comment on above: For patients on eltr ombopag therapy, use of Dimension [place] TBIL is not recommended. Chloride [Moles/Vol] 103 mmol/L 98-107 [facility]: Glucose [Mass/Vol] 92 mg/dL 74-106 [facility] Work Phone: Potassium [Moles/Vol] 3.9 mmol/L 3.5-5.1 [facility] Work Phone: Protein [Mass/Vol] 6.4 g/dL 6.4-8.2 [facility] Work Phone: Sodium [Moles/Vol] 138 mmol/L 136-145 [facility] Work Phone: Laboratory - Chemistry and C hemistry - challengeon 04-27-2022 ALP [Catalytic activity/Vol] 100 U/L 45-117 [facility] Work Phone: ALT [Catalytic activity/Vol] 20 U/L 16-61 [facility] Work Phone: CO2 [Moles/Vol] 29.0 mmol/L 21.0-32.0 [facility] Work Phone: Globulin (S) [Mass/Vol] 2.9 g/dL 2.2-4.2 [facility] Work Phone: Urea nitrogen/Creatinine [Mass ratio] 9.1 mg/mg 10-20 [facility] Work Phone: No Panel Informationon 04-27 Estimated GFR (MDRD) Amer 127 mL/min >60 [facility] Work Phone: Comment on above: GFR Calc Estimated GFR (MDRD) Non-Af Amer 105 mL/min >60 [facility] Work Phone: Comment on above: Non- GFR Calc Serum or plasma albumin veena urement (mass/volume)on 04-27-2022 Albumin [Mass/Vol] 3.5 g/dL 3.2-5.0 [facility] Work Phone: Serum or plasma albumin/glob ulin mass ratioon 04-27-2022 Albumin/Globulin [Mass ratio] 1.2 {ratio} 0.9-2.4 [facility] Work Phone: [phone] Serum or plasma calcium veena urement (mass/volume)on 04-27-2022 Calcium [Mass/Vol] 8.8 mg/dL 8.5-10.1 [facility] Work Phone: [phone] Serum or plasma creatinine m easurement (mass/volume)on 04-27-2022 Creatinine [Mass/Vol] 0.77 mg/dL 0.70-1.30 [facility] Work Phone: Comment on above: The validity of the calculated GFR & GFRAA in patients over 70 years has not been determined. Clinical correlation is essential. Serum or plasma phenytoin me asurement (mass/volume)on 04-27-2022 Phenytoin [Mass/Vol] 16.8 mL 10.0-20.0 [facility] Work Phone: [phone] Serum or plasma urea nitroge n measurement (mass/volume)on 04-27-2022 Urea nitrogen [Mass/Vol] 7 mg/dL 7-18 [facility] Work Phone: [phone] Thin prep Papanicolaou smear with manual screeningon 04-27-2022 Thin prep Papanicolaou smear with manual screening 17 U/L 15-37 [facility] Work Phone: [phone] Thin prep Papanicolaou smear with manual screening 6 5-15 [facility] Work Phone: Basophil percentageon 2021 Potassium [Moles/Vol] 4.0 mmol/L 3.5-5.1 [facility] Work Phone: Basophil percentageon 2021 Bilirubin [Mass/Vol] 0.40 mg/dL 0.20-1.00 [facility] Work Phone: Comment on above: For patients on eltr ombopag therapy, use of Dimension [place] TBIL is not recommended. Chloride [Moles/Vol] 103 mmol/L 98-107 [facility] Work Phone: Glucose [Mass/Vol] 110 mg/dL 74-106 [facility] Work Phone: Comment on above: Fasting Glucose resu lt from 100 to 125 mg/dL suggests IMPAIRED HOMEOSTASIS per A.D.A. criteria. Potassium [Moles/Vol] 3.9 mmol/L 3.5-5.1 [facility] Work Phone: [phone] Protein [Mass/Vol] 6.4 g/dL 6.4-8.2 [facility] Work Phone: [phone] Sodium [Moles/Vol] 137 mmol/L 136-145 [facility] Work Phone: Laboratory - Chemistry and C hemistry - challengeon 02-13-2022 ALP [Catalytic activity/Vol] 65 U/L 45-117 [facility] Work Phone: ALT [Catalytic activity/Vol] 31 U/L 16-61 [facility] Work Phone: CO2 [Moles/Vol] 27.0 mmol/L 21.0-32.0 [facility] Work Phone: Globulin (S) [Mass/Vol] 3.2 g/dL 2.2-4.2 [facility] Work Phone: [phone] Magnesium [Mass/Vol] 2.5 mg/dL 1.6-2.6 [facility] Work Phone: Urea nitrogen/Creatinine [Mass ratio] 29.4 mg/mg 10-20 [facility] Work Phone: No Panel Informationon 02-13 Estimated GFR (MDRD) Amer 113 mL/min >60 [facility] Work Phone: Comment on above: GFR Calc Estimated GFR (MDRD) Non-Af Amer 94 mL/min >60 [facility] Work Phone: Comment on above: Non- GFR Calc Serum or plasma albumin veena urement (mass/volume)on 02-13-2022 Albumin [Mass/Vol] 3.2 g/dL 3.2-5.0 [facility] Work Phone: Serum or plasma albumin/glob ulin mass ratioon 02-13-2022 Albumin/Globulin [Mass ratio] 1.0 {ratio} 0.9-2.4 [facility] Work Phone: Serum or plasma calcium veena urement (mass/volume)on 02-13-2022 Calcium [Mass/Vol] 8.4 mg/dL 8.5-10.1 [facility] Work Phone: [phone] Serum or plasma creatinine m easurement (mass/volume)on 02-13-2022 Creatinine [Mass/Vol] 0.85 mg/dL 0.70-1.30 [facility] Work Phone: Comment on above: The validity of the calculated GFR & GFRAA in patients over 70 years has not been determined. Clinical correlation is essential. Serum or plasma urea nitroge n measurement (mass/volume)on 02-13-2022 Urea nitrogen [Mass/Vol] 25 mg/dL 7-18 [facility] Work Phone: Thin prep Papanicolaou smear with manual screeningon 02-13-2022 Thin prep Papanicolaou smear with manual screening 34 U/L 15-37 [facility] Work Phone: [phone] Thin prep Papanicolaou smear with manual screening 7 5-15 [facility] Work Phone: [phone] Absolute lymphocyte counton 02-10-2022 Lymphocytes Auto (Unsp spec) [#/Vol] 2.46 10*3/uL 0.83-4.51 [facility] Work Phone: Basophil percentageon 2021 Basophil percentage 0 SEEN /hpf 0-5 [facility] Work Phone: Basophils/100 WBC (Bld) 1.5 % 0-1 [facility] Work Phone: Bilirubin [Mass/Vol] 0.20 mg/dL 0.20-1.00 [facility] Work Phone: Comment on above: For patients on eltr ombopag therapy, use of Dimension [place] TBIL is not recommended. Chloride [Moles/Vol] 102 mmol/L 98-107 [facility] Work Phone: Eosinophils/100 WBC (Bld) 6.8 % 0-5 [facility] Work Phone: [phone] Glucose [Mass/Vol] 164 mg/dL 74-106 [facility] Work Phone: Comment on above: Fasting Glucose resu lt greater than or equal to 126 mg/dL suggests DIABETES MELLITUS per A.D.A. criteria. Neutrophils (Bld) [#/Vol] 2.0 10*3/uL 2.0-7.7 [facility] Work Phone: Neutrophils/100 WBC (Bld) 33.7 % 47-70 [facility] Work Phone: [phone] Potassium [Moles/Vol] 2.9 mmol/L 3.5-5.1 [facility] Work Phone: Protein [Mass/Vol] 6.4 g/dL 6.4-8.2 [facility] Work Phone: Sodium [Moles/Vol] 137 mmol/L 136-145 [facility] Work Phone: WBC (Bld) [#/Vol] 6.0 10*3/uL 4.4-11.0 [facility] Work Phone: Bilirubin Test strip Ql (U)o n 02-10-2022 Bilirubin Ql (U) Negative Negative [facility] Work Phone: Blood erythrocytes count (nu mber/volume)on 02-10-2022 RBC (Bld) [#/Vol] 4.82 10*6/uL 4.6-6.2 [facility] Work Phone: Blood hemoglobin measurement (mass/volume)on 02-10-2022 Hemoglobin (Bld) [Mass/Vol] 13.8 g/dL 13.0-16.5 [facility] Work Phone: Blood lymphocytes/100 leukoc yteson 02-10-2022 Lymphocytes/100 WBC (Bld) 41.0 % 19-41 [facility] Work Phone: Blood monocytes/100 leukocyt eson 02-10-2022 Monocytes/100 WBC (Bld) 16.8 % 0-10 [facility] Work Phone: Blood platelet mean volumeon 02-10-2022 Platelet mean volume (Bld) [Entitic vol] 8.6 fL 6.2-12.0 [facility] Work Phone: Determination of erythrocyte mean corpuscular volume (MCV)on 02-10-2022 MCV (RBC) [Entitic vol] 86.9 fL 80-94 [facility] Work Phone: [phone] Hematocrit Auto (Bld) [Volum e fraction]on 02-10-2022 Hematocrit (Bld) [Volume fraction] 41.9 % 40-54 [facility] Work Phone: Ketones Test strip Ql (U)on 02-10-2022 Ketones Ql (U) 15 mg/dl Negative [facility] Work Phone: Laboratory - Chemistry and C hemistry - challengeon 02-10-2022 ALP [Catalytic activity/Vol] 73 U/L 45-117 [facility] Work Phone: ALT [Catalytic activity/Vol] 28 U/L 16-61 [facility] Work Phone: CO2 [Moles/Vol] 25.0 mmol/L 21.0-32.0 [facility] Work Phone: Globulin (S) [Mass/Vol] 2.9 g/dL 2.2-4.2 [facility] Work Phone: Lipase [Catalytic activity/Vol] 146 U/L 73-393 [facility] Work Phone: Urea nitrogen/Creatinine [Mass ratio] 15.1 mg/mg 10-20 [facility] Work Phone: Laboratory - Hematology and Cell countson 02-10-2022 Erythrocyte distribution width (RBC) [Entitic vol] 44.5 fL 35.1-43.9 [facility] Work Phone: [phone] Erythrocyte distribution width (RBC) [Ratio] 13.8 % 11.6-14.6 [facility] Work Phone: [phone] Immature granulocytes/100 WBC (Bld) 0.200 % 0.0-0.9 [facility] Work Phone: [phone] Comment on above: IG% - Immature Granu locytes (promyelocytes, myelocytes and metamyelocytes) > 1% indicates that a LEFT SHIFT is Present. MCH (RBC) [Entitic mass] 28.6 pg 27.0-32.0 [facility] Work Phone: [phone] Nucleated RBC/100 WBC (Bld) [Ratio] 0 % 0-5 [facility] Work Phone: [phone] MCHC Auto (RBC) [Mass/Vol]on 02-10-2022 MCHC (RBC) [Mass/Vol] 32.9 g/dL 32-36 [facility] Work Phone: [phone] Mucus LM Ql (Urine sed)on Mucus Ql (Urine sed) 0 SEEN /hpf [facility] Work Phone: [phone] Nitrite Test strip Ql (U)on 02-10-2022 Nitrite Ql (U) Negative Negative [facility] Work Phone: [phone] Panel Informationon 02-10 Estimated Creatinine Clearance Calc 63.84 ml/min [facility] Work Phone: [phone] Estimated GFR (MDRD) Amer 103 mL/min >60 [facility] Work Phone: [phone] Comment on above: GFR Calc Estimated GFR (MDRD) Non-Af Amer 85 mL/min >60 [facility] Work Phone: [phone] Comment on above: Non- GFR Calc Troponin I High Sensitivity 8 pg/mL 3.0-78.0 [facility] Work Phone: [phone] Comment on above: Please Note: New Angela t Units and Gender Specific Reference Ranges. For more information see Policy Stat Procedure [place] High Sensitivity Troponin (TNIH) and attachments. Platelets bldon 02-10-2022 Platelets (Bld) [#/Vol] 311 10*3/uL 150-450 [facility] Work Phone: Protein Test strip Ql (U)on 02-10-2022 Protein Ql (U) Negative Negative [facility] Work Phone: Serum or plasma albumin veena urement (mass/volume)on 02-10-2022 Albumin [Mass/Vol] 3.5 g/dL 3.2-5.0 [facility] Work Phone: [phone] Serum or plasma albumin/glob ulin mass ratioon 02-10-2022 Albumin/Globulin [Mass ratio] 1.2 {ratio} 0.9-2.4 [facility] Work Phone: Serum or plasma calcium veena urement (mass/volume)on 02-10-2022 Calcium [Mass/Vol] 8.6 mg/dL 8.5-10.1 [facility] Work Phone: Serum or plasma creatinine m easurement (mass/volume)on 02-10-2022 Creatinine [Mass/Vol] 0.93 mg/dL 0.70-1.30 [facility] Work Phone: Comment on above: The validity of the calculated GFR & GFRAA in patients over 70 years has not been determined. Clinical correlation is essential. Serum or plasma urea nitroge n measurement (mass/volume)on 02-10-2022 Urea nitrogen [Mass/Vol] 14 mg/dL 7-18 [facility] Work Phone: [phone] Squamous epithelial cells de tection in urine sediment by light microscopyon 02-10-2022 Epithelial cells.squamous LM Ql (Urine sed) 0 SEEN /hpf 0-5 [facility] Work Phone: Thin prep Papanicolaou smear with manual screeningon 02-10-2022 Thin prep Papanicolaou smear with manual screening 16 U/L 15-37 [facility] Work Phone: Thin prep Papanicolaou smear with manual screening 10 5-15 [facility] Work Phone: Urine blood detectionon 01-26 RBC Ql (U) Negative Negative [facility] Work Phone: RBC Ql (U) 0 SEEN /hpf 0-5 [facility] Work Phone: Urine clarityon 02-10-2022 Clarity (U) Clear Clear [facility] Work Phone: Urine color determinationon 02-10-2022 Color (U) Yellow Yellow [facility] Work Phone: Urine glucose detectionon Glucose Ql (U) 100 mg/dl Normal [facility] Work Phone: Urine leukocyte esterase det ection by dipstickon 02-10-2022 Leukocyte esterase Test strip Ql (U) Negative Negative [facility] Work Phone: Urine pHon 02-10-2022 pH (U) 8.0 [pH] 5.0 - 8.0 [facility] Work Phone: Urine sediment bacteria coun t by microscopy (number/high power field)on 02-10-2022 Bacteria LM.HPF (Urine sed) [#/Area] 0 /[HPF] None Seen [facility] Work Phone: Urine specific gravity measu rementon 02-10-2022 Specific gravity (U) [Rel density] 1.015 1.002-1.030 [facility] Work Phone: Urobilinogen Auto test strip Ql (U)on 02-10-2022 Urobilinogen Ql (U) Normal mg/dl Normal [facility] Work Phone: Vital Signs Date Time Vital Sign Value Performing Clinician Faci lity 02-10-2022 10:09-0400 Diastolic blood pressure 74 mm[Hg] [facility] Work Phone: 02-10-2022 10:09-0400 Heart rate 60 /min [facility] Work Phone: 02-10-2022 10:09-0400 Respiratory rate 12 /min [facility] Work Phone: 02-10-2022 10:09-0400 SaO2% (BldA) [Mass fraction] 100 % [facility] Work Phone: 02-10-2022 10:09-0400 Systolic blood pressure 124 mm[Hg] [facility] Work Phone: 02-10-2022 06:22-0400 Body height 167.64 cm [facility] Work Phone: 02-10-2022 06:22-0400 Body mass index (BMI) [Ratio] 24.2 kg/m2 [facility] Work Phone: 02-10-2022 06:22-0400 Body temperature 98.1 [degF] [facility] Work Phone: 02-10-2022 06:22-0400 Body weight 68.03 kg [facility] Work Phone: Encounters Encounter Date Encounter Type Care Provider Facility Start: 02-19-2025 Encounter for genera l adult medical examination without abnormal findings Julio Rene [facility] Start: 02-08-2025 End: 02-08-2025 ambulatory Julio Rene Facility:[facility] Start: 12-17-2024 End: 12-17-2024 ambulatory Julio Rene Facility:[facility] Start: 06-10-2024 End: 06-10-2024 ambulatory Dalia OLVERA Facility:[facility] Start: 06-09-2024 End: 06-09-2024 ambulatory Julio Rene Facility:[facility] Start: 01-02-2024 End: 01-02-2024 ambulatory [facility] Work Phone: Start: 01-02-2024 End: 01-02-2024 Patient encounter procedure [facility] Start: 09-05-2023 End: 09-05-2023 ambulatory [facility] Work Phone: Start: 09-05-2023 End: 09-05-2023 Patient encounter procedure [facility] Work Phone: Start: 08-09-2023 End: 08-09-2023 ambulatory [facility] Work Phone: Start: 08-09-2023 End: 08-09-2023 Patient encounter procedure [facility] Work Phone: Start: 05-24-2023 End: 05-24-2023 Discharged Recurring [facility] Work Phone: Start: 05-15-2023 End: 05-15-2023 ambulatory [facility] Work Phone: Start: 05-15-2023 End: 05-15-2023 Patient encounter procedure [facility] Start: 02-08-2023 End: 02-08-2023 ambulatory [facility] Work Phone: Start: 02-08-2023 End: 02-08-2023 Patient encounter procedure [facility] Start: 08-03-2022 End: 08-03-2022 ambulatory [facility] Work Phone: Start: 08-03-2022 End: 08-03-2022 Discharged Recurring [facility] Start: 08-03-2022 Registered Recurring [facility] Start: 08-01-2022 End: 08-01-2022 ambulatory [facility] Work Phone: Start: 08-01-2022 End: 08-01-2022 Patient encounter procedure [facility] Start: 04-27-2022 End: 04-27-2022 Patient encounter procedure [facility] Start: 03-14-2022 End: 03-14-2022 Patient encounter procedure [facility] Start: 02-13-2022 End: 02-13-2022 Patient encounter procedure [facility] Start: 02-10-2022 End: 02-10-2022 Emergency department patient visit [facility] Procedures Date Procedure Procedure Detail Performing Clinician Start: 09-05-2023 Dual energy X-ray absorptiometry Start: 08-09-2023 Radiography of thoracic spine Start: 08-09-2023 X-ray of lumbosacral spine Start: 02-10-2022 Computed tomography of abdomen and pelvis with intravenous contrast Plan of Treatment Date Care Activity Detail Author Albumin/Globulin [Ma ss Ratio] in Serum or Plasma by Electrophoresis [facility] Electrophoresis: albumin [facility] Electrophoresis: [id number] [facility] Electrophoresis: [id number] [facility] Electrophoresis: aptel ma globulin [facility] Globulin measurement [facility] Patient Education ED Hypokalemia ED Urinary Retention, Male [facility] Work Phone: Patient referral [facility] Work Phone: Protein electrophore sis panel - Serum or Plasma [facility] Serum protein electrophoresis [facility] Total globulins measurement [facility] Immunizations Immunization Date Immunization Notes Care Provider Fa cility 01-23-2021 Covid ([facility] 12-26-2020 Covid ([facility]) [facility] Payers Date Payer Category Payer Self-pay [id number] 2015 Unknown [id number] 2013 Medicare [id number] Unknown [id number] Unknown [id number] Unknown [id number] Unknown [id number] Social History Date Type Detail Facility Start: 02-10-2022 End: 02-10-2022 Tobacco smoking status NHIS Unknown if ever smoked [facility] Start: 08-23-2019 Occasional [facility] Start: 08-23-2019 None [facility] Start: 08-23-2019 Spouse/ Signif icant Other [facility] Start: 01-06-2021 Non-smoker [facility] Start: 1950 Sex Assigned At Male [facility] Addendum Document 01-02-2024 Note Date & Type Note Facility 01-02-2024 Addendum Document [facility] Protein Electrophoresis Note January 02, 2024 12:08pm Comment: . Suggest serum IF E for further evaluation.Performed at: [facility] [place] [address] [id number] Director: Jorge Scanlon PhD, Phone: [phone] Comment on above: Suggest serum EMANUEL fo r further evaluation.Performed at: [facility] [place] [address] [id number] Director: Jorge Scanlon PhD, Phone: [phone] Addendum Document 08-09-2023 Note Date & Type Note Facility 08-09-2023 Addendum Document [facility] Protein Electrophoresis Note August 09, 2023 6:39am Comment: . Suggest serum IF E for further evaluationPerformed at: [facility] [place] [address] [id number] Director: Jorge Scanlon PhD, Phone: [phone] Comment on above: Suggest serum EMANUEL fo r further evaluationPerformed at: [facility] [place] [address] [id number] Director: Jorge Scanlon PhD, Phone: [phone] Evaluation note Note Date & Type Note Facility Evaluation note No assessment information availa ble [facility] Work Phone: Chief Complaint and Reason for Visit Chief Complaint abd pain Chief Complaint CERVICALGIA. RX HERE Chief Complaint WEAKNESS IN CORE, CO NDITIONING RX HERE LABS AND XRAY Chief Complaint WEAKNESS IN CORE, CO NDITIONING RX HERE LABS AND XRAY OSTEO Family History No Family History Records Found Relationship Condition Age at Onset Recorded Date/T celia Unknown Family History?- Unknown July 12:30pm Family History?- Unknown July 12:30pm Relationship Condition Age at Onset Recorded Date/T celia Unknown Family History?- Unknown July 11:30am Family History?- Unknown July 11:30am Advance Directives No Advanced Directives Records Found Advance Directive Response Recorded Date/ Time Living Will No February 10, 2022 6:27am Power of Watch Hairspring Assembler No February 10 6:27am Advance Directive Response Recorded Date/ Time Living Will No February 10, 2022 5:27am Power of Watch Hairspring Assembler No February 10 5:27am Summary Purpose Additional Source Comments Goals (unrecognized section and content) Goals may be documented in a n alternate sectionGoals may be documented in an alternate sectionGoals may be documented in an alternate sectionGoals may be documented in an alternate sectionGoals may be documented in an alternate sectionGoals may be documented in an alternate sectionGoals may be documented in an alternate sectionGoals may be documented in an alternate section Care Teams (unrecognized sec tion and content) Team Status: Active Member Role Status Dates Dr. Julio Rene MD Family Provider Active Dr. Julio Rene MD Primary Care Provider Active Team Status: Inactive Member Role Status Dates Dr. Julio Rene MD Primary Care Provider, Attending [place] carrington Active Team Status: Inactive Member Role Status Dates Dr. Julio Rene MD Primary Care Provide r, Attending Provider, Referring Provider Active (unrecognized sect ion and content) No Status Records Found INFORMATION SOURCE (unrecogn ized section and content) DATE CREATED AUTHOR 02/21/2025 [facility] FOR RECORDS PERTAINING TO PATIENTS WHO ARE OR HAVE BEEN ENROLLED IN A CHEMICAL DEPENDENCY/SUBSTANCEABUSE PROGRAM, SOME INFORMATION MAY BE OMITTED. This clinical summary was aggregated from multiple sources. Caution should be exercised in using it in the provision of clinical care. This summary normalizes information from multiple sources, and as a consequence, information in this document may materially change the coding, format and clinical context of patient data. In addition, data may be omitted in some cases. CLINICAL DECISIONS SHOULD BE BASED ON THE PRIMARY CLINICAL RECORDS. [facility] [employer] [facility]. provides no warranty or guarantee of the accuracy or completeness of information in this document.
== END | disposition home or self-care (01) ==
PROVIDERS: PCP Family Medicine; Referring Provider Family Medicine; Visit Provider Family Medicine
DX: R22.30 Localized swelling, mass and lump, unspecified upper limb (principal)
CPT/HCPCS: 36415; 71046; 80053; 84443; 85025; 85652

== ENCOUNTER → 2025-07-02 | Outpatient (CLI) | payer MEDICARE, OTHER, SELFPAY ==
--- NOTE | 2025-07-02 16:18 | CT_ITS ---
PROCEDURE: CHEST WITH CONTRAST 07/02/2025 REASON FOR EXAM: STAT - ACUTE, ENLARGING MASS DEEP R AXILLA, IMMOBILE, > 6CM TECHNIQUE: Procedure Code: CTCHW Modality: CT Procedure: CHEST WITH CONTRAST Coronal and Sagittal reconstruction series were provided. CONTRAST: Please see CT VOLUME: Please see CT mL One or more dose reduction techniques were used (e.g., Automated exposure control, adjustment of the mA and/or kV according to patient size, use of iterative reconstruction technique). RADIATION DOSE SUMMARY: CTDlvol: Please see CT mGy DLP: 417.33 mGycm COMPARISON: None FINDINGS: Pulmonary arteries: Diameter of the main pulmonary trunk at 27.4 mm is within normal range. This examination is not optimized to rule out pulmonary emboli, however no evidence of intraluminal pulmonary arterial filling defects are noted through the proximal subsegmental levels to suggest acute pulmonary embolus. Heart: The heart is not enlarged. Ventricular ratio is maintained. No cardiac chamber or atrial appendage filling defect is seen to suggest cardiac thrombus. No significant pericardial effusion. Coronary arterial calcifications are noted. Myocardial ischemia is not assessed by this study. Clinical correlation is advised. Aorta: No thoracic aortic aneurysm or dissection. No hemodynamically significant thoracic aortic stenosis. Three-vessel branch pattern noted off the aortic arch. Visualized proximal great vessels within the superior mediastinum are tortuous but patent. Mediastinum: No mediastinal hematoma. Trace amount of fluid seen within the pericardial recesses. No mediastinal soft tissue emphysema. Lymph nodes: Mediastinal and hilar lymph nodes are noted but not appearing pathologic by size criteria. There is a lobular 8.3 cm heterogeneously enhancing inflammatory right axillary mass of indeterminate significance. This could represent soft tissue mass or adenopathy, malignancy can not be ruled out. This should be clinically palpable. Soft tissue diagnosis is advised. Esophagus: No periesophageal inflammation. Slightly thick-walled gas containing 2.7 cm hiatal hernia. Thyroid: 5 mm right thyroid nodule. Lungs: The lungs are symmetrically expanded. Prominent AP dimension of the chest could be seen with changes of COPD. There is no consolidation or air bronchograms. Mild atelectasis or parenchymal scarring at the lung bases. Calcified granuloma within the left upper lobe. No suspicious pulmonary parenchymal mass. No bronchiectasis or peribronchial thickening. Pleura: No pleural effusion. There is no pneumothorax. Upper abdomen: No free air or free fluid within the visualized upper most abdomen. Multiple subcentimeter hepatic lesions noted, too small to further characterize by this technique. Clinical correlation with risk factors. If there is high risk consider nonemergent MRI for complete assessment. Partially contracted gallbladder. Incompletely visualized 7 cm right renal lesion consistent with a cyst, however extending below the level of imaging. Multiple splenic calcifications consistent with sequela of prior granulomatous disease. Body wall: No body wall hematoma. Complex heterogeneous right axillary mass noted. Findings and recommendations discussed above. Osseous: Degenerative changes of the spine and bony thorax. No acute osseous abnormality. CT/Chest WITH Contrast IMPRESSION: Complex heterogeneous 8 cm right axillary mass, worrisome for malignancy. Soft tissue diagnosis is advised as discussed above. - Other incidental findings discussed above in detail. Reading Location: [id number]
== END | disposition home or self-care (01) ==
LOC: CT 16:11
PROVIDERS: PCP Family Medicine; Referring Provider Family Medicine; Visit Provider Family Medicine
DX: R22.31 Localized swelling, mass and lump, right upper limb (principal)
CPT/HCPCS: 71260; Q9967

== ENCOUNTER → 2025-07-14 | Outpatient (CLI) | payer MEDICARE, OTHER, SELFPAY ==
--- NOTE | 2025-07-14 08:00 | AXNB_PTH ---
PATIENT: MAUREEN RUSHING LOC: [facility] U#:[id number] AGE/SX: 75/M ROOM: RE07/14/[address]: Dr. Anish Plasencia MD : 1950 BED: DIS: 07/14/2025 SPEC #: [id number] RECD: 07/14/25 10:19 STATUS: OSCAR REQ #: [id number] JONATHAN: 07/14/25 08:[address]: Anish Plasencia DEPT: SURGICAL PATHOLOGY RECD BY: Hernan Parker ENTERED: 07/14/25 11:33 SP TYPE: AX NODE BX OTHR DR: Dr. Julio Rene MD Tissues: A - Axillary lymph node, NOS Procedures: Immunohistochemical Stains Surgery Specimen Level V IHC Stain ADDITIONAL Comments: Called office and spoke to Flavia on 07/16/25 to inform office that case is being sent to [facility] for formal consult and final result will be delayed. HEADER OPERATION: Core needle biopsy or right axillary mass PRE-OP DIAGNOSIS: Right axillary mass TISSUE SUBMITTED: A- Right axillary mass MICROSCOPIC DIAGNOSIS A. Axilla, right, core biopsy: - Malignant neoplasm - see note. - IHC performed: Positive - CD45, Vimentin Negative - Pankeratin, CK7, CK20, Melan A, S100 Note: The histology shows a diffuse proliferation of anaplastic and pleomorphic cells with scant cytoplasm. The immunophenotype is suggestive of lymphoma. Formal consultation at [facility] (hematopathology division) is PENDING and a separate report(s) will follow. MICROSCOPIC DESCRIPTION Slides are reviewed. GROSS DESCRIPTION A. Received in formalin labeled with the patient's name and date of . Designated as R axillary mass are 4 wen-white, soft and somewhat friable tissue core fragments, 0.6 cm to 1.4 cm in length by 0.2 cm in diameter. Entirely submitted in 1 cassette. CO 07/14/2025 CPT:72327,81079,21525s1 ADDENDUM ADDENDUM ADDENDUM ADDENDUM ADDENDUM ADDENDUM ADDENDUM ADDENDUM ADDENDUM ADDENDUM ADDENDUM ADDENDUM ADDENDUM ADDENDUM ADDENDUM ADDENDUM ADDENDUM 07/29/2025 09:45 ADDENDUM 08/18/2025 15:57 ADDENDUM 07/22/2025 11:12 ADDENDUM 07/22/2025 11:12 ADDENDUM 07/22/2025 11:12 ADDENDUM 07/22/2025 11:12 ADDENDUM 07/22/2025 11:12 This addendum is added to incorporate an outside pathology consultation report. The case was examined at [facility] by Dr. Brown (#[id number]) and the following diagnosis was rendered. A. Axilla, right, core biopsy: Aggressive B-cell lymphoma with CD30 positivity, see comment and synoptic report. Diagnosis comment: While atypical CD21 positive follicular dendritic cell meshworks are present, the overall findings are consistent with an aggressive B-cell lymphoma with CD30 positivity and a non-germinal center phenotype. FISH testing for MYC, BCL2 and BCL6 rearrengements is in progress for further evaluation and the results will be issued in an addendum report. Please see complete above mentioned consultation report in EMR This addendum is added to incorporate an outside pathology consultation report. The case was examined at [facility] by Dr. Brown (#[id number]) and the following diagnosis was rendered. A. Axilla, right, core biopsy: Addended report: BCL6 gene rearrangement is detected by FISH. No MYC or BCL2 rearrangements detected. The final classification of diffuse large B-cell lymphoma, non-germinal center phenotype, is indicated. Please see complete above mentioned consultation report in EMR This addendum is added to incorporate an outside pathology consultation report. The case was examined at [facility] by Dr. Brown (#[id number]) and the following diagnosis was rendered. A. Axilla, right, core biopsy: ADDENDUM: BCL6 gene rearrangement is detected by FISH. No MYC or BCL2 rearrangements detected. The final classification of diffuse large B-cell lymphoma, non-germinal center phenotype, is indicated. This addendum is issued to report on the CD23 stain that was performed on block A2. A CD23 immunostain performed shows only focal small fragments of follicular dendritic cell meshworks. The original diagnosis remains unchanged. Please see complete above mentioned consultation report in EMR
== END | disposition home or self-care (01) ==
LOC: LABSPEC 10:38
PROVIDERS: PCP Family Medicine; Referring Provider Surgery; Visit Provider Surgery
DX: R22.2 Localized swelling, mass and lump, trunk (principal)
CPT/HCPCS: 88305; 88307; 88341; 88342

== ENCOUNTER → 2025-08-03 | Outpatient (CLI) | payer MEDICARE, OTHER, SELFPAY ==
--- NOTE | 2025-08-03 12:56 | ECHOCSONC_ITS ---
Reason For Study Reason For Study: CHEMOTHERAPY Procedure This was a 2D Doppler, Color Flow transthoracic echocardiogram. Myocardial strain analysis was performed in this exam to aid in the assessment of cardiac function. Exam performed in department. Left Ventricle Normal LV size. The global longitudinal strain = -22.6 % (normal). The left ventricular ejection fraction is 60 %. Stage 1 diastolic dysfunction. No regional wall motion abnormalities noted. Right Ventricle Normal RV size. Normal systolic function. Atria Normal left atrium. Normal right atrium. Mitral Valve Normal mitral valve. Tricuspid Valve Normal tricuspid valve. Mild (1+) tricuspid valve insufficiency. Pulmonary artery systolic pressure is 23 mmHg. Aortic Valve Normal aortic valve. Trisinus/trileaflet aortic valve. Mild (1+) eccentric aortic valve insufficiency. Pulmonic Valve Normal pulmonic valve. Great Vessels Normal sized aortic root. The pulmonary artery is normal size. Inferior vena cava collapse with respiration. Pericardium/Pleural No pericardial effusion. MMode/2D Measurements & Calculations LVIDd: 4.4 cm IVSd: 1.1 cm LVOT diam: 2.1 cm LVIDs: 2.6 cm LVPWd: 1.1 cm LVOT area: 3.4 cm2 RVDd: 3.6 cm FS: 42.4 % asc Aorta Diam: 3.3 cm LAV(MOD-bp): 29.8 ml LVAd ap4: 25.7 cm2 LAV(MOD-bp) Indexed: 16.4 ml/m2 LVLd ap4: 7.8 cm LAV(MOD-sp2): 38.2 ml EDV(MOD-sp4): 69.0 ml LAV(MOD-sp4): 23.7 ml EDV(sp4-el): 71.9 ml LVAs ap4: 12.4 cm2 LVLs ap4: 5.9 cm ESV(MOD-sp4): 21.7 ml ESV(sp4-el): 22.2 ml EF(MOD-sp4): 68.6 % EF(sp4-el): 69.1 % LVAd ap2: 24.0 cm2 SV(MOD-sp4): 47.3 ml SV(MOD-sp2): 42.1 ml LVLd ap2: 7.7 cm SI(MOD-sp4): 26.1 ml/m2 SI(MOD-sp2): 23.2 ml/m2 EDV(MOD-sp2): 62.3 ml EDV(sp2-el): 63.4 ml LVAs ap2: 12.3 cm2 LVLs ap2: 6.4 cm ESV(MOD-sp2): 20.2 ml ESV(sp2-el): 20.2 ml EF(MOD-sp2): 67.5 % SV(sp4-el): 49.7 ml Ao sinus diam: 3.[address] Junction: 2.8 cm LA dimension(2D): 3.3 cm LA A4 area: 12.0 cm2 RA A4 area: 11.2 cm2 TAPSE: 2.0 cm Time Measurements MV dec time: 0.24 sec Doppler Measurements & Calculations MV E max edin: 64.9 cm/sec Lat Peak E' Edin: 12.0 cm/sec Med Peak E' Edin: 9.7 cm/sec MV A max edin: 71.5 cm/sec E/E' lat: 5.4 E/E' med: 6.7 MV E/A: 0.91 MV dec slope: 266.8 cm/sec2 Ao V2 max: 122.5 cm/sec AI max edin: 269.8 cm/sec Ao max P.0 mmHg AI max P.1 mmHg Ao V2 mean: 90.5 cm/sec AI dec slope: 131.8 cm/sec2 Ao mean P.5 mmHg AI P1/2t: 599.8 msec Ao V2 VTI: 26.6 cm AV (velocity ratio): 0.92 SIMONE(I,D): 3.2 cm2 SIMONE(V,D): 3.0 cm2 LV V1 max: 107.3 cm/sec SV(LVOT): 84.3 ml PA V2 max: 81.6 cm/sec LV V1 max P.6 mmHg LV V1 mean P.8 mmHg LV V1 mean: 81.3 cm/sec LV V1 VTI: 24.6 cm TR max edin: 217.9 cm/sec TR max P.1 mmHg ECHO/ONC Echo Complete Interpretation Summary The global longitudinal strain = -22.6 % (normal). Normal LV size. The left ventricular ejection fraction is 60 %. Stage 1 diastolic dysfunction. Mild (1+) eccentric aortic valve insufficiency. Structurally normal valves. Ordering Physician: Angely Aleman Referring Physician: Julio Rene MD Performed By: Darshana Durand RDCS
== END | disposition home or self-care (01) ==
LOC: CVS 12:55
PROVIDERS: PCP Family Medicine; Referring Provider Internal Medicine Hematology & Oncology; Visit Provider Internal Medicine Hematology & Oncology
DX: C83.34 Diffuse large B-cell lymphoma, lymph nodes of axilla and upper limb (principal); Z79.899 Other long term (current) drug therapy
CPT/HCPCS: 93306; 93356

== ENCOUNTER 2025-08-23 11:00 | Day surgery (SDC) | payer MEDICARE, OTHER, SELFPAY ==
--- NOTE | 2025-08-13 09:18 | PAT.ANE_ITS ---
Pre-Assessment Diagnosis/Proposed Procedure Planned Operative Procedure(s): INSERTION VASCULAR PORT RIGHT POSS LEFT Anesthesia History Anesthesia History - payable representative: Anesthesia History - payable representative Hx Hospitalization No 08/13/25 08:42 Any Problems With Anesthesia No 08/13/25 08:42 Cholinesterase deficiency No 08/13/25 08:42 You/Your Family Experience No 08/13/25 08:42 fever (hyperthermia) with Relationship Recent Exposure to Contagious No 01/06/21 09:27 Disease Does patient have nerve No 08/13/25 08:42 stimulator Patient instructed to have device shut off --Does patient have Pacemaker or ICD? When Was Last Pacemaker Check QUESTION #4 FULL TEXT: You/Your Family Experience fever (hyperthermia) with Anesthesia Last Oral Intake Last Oral intake: Last Oral Intake NPO since Meds taken in AM with sips of water? Meds patient instructed to take am of surgery PONV PONV - payable representative: PONV - payable representative Female No 08/13/25 08:42 HX of Motion Sickness No 08/13/25 08:42 HX of N/V After Surgery No 08/13/25 08:42 Non-Smoker Yes 08/13/25 08:42 Duration of Surgery greater No 08/13/25 08:42 than 60 minutes Number of Risk Factors 1 08/13/25 08:42 PONV Score Low Risk 08/13/25 08:42 Height & Weight Height & Weight: Anesthesia: Height & Weight Height 5 ft 7 in 08/09/25 09:56 Respiratory Assessment Respiratory Assessment - payable representative: Respiratory Tract Infection Hx - payable representative Hx Respiratory Tract Infection No 08/13/25 08:42 STOP Sleep Apnea STOP Sleep Apnea - payable representative: STOP Sleep Apnea - payable representative Hx Hypertension No 08/13/25 08:42 Hx Sleep Apnea Yes 08/13/25 08:42 CPAP Yes 08/13/25 08:42 BIPAP No 08/13/25 08:42 Do you snore loudly (louder than talking or can be heard Do you often feel tired/ fatigued/ sleepy during daytime? Has anyone observed you stop breathing during sleep? STOP Results Positive 08/13/25 08:42 QUESTION #5 FULL TEXT : Do you snore loudly (louder than talking or can be heard through closed doors)? 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 Specify any problems Hx of Preganancy in last 3 N/A 08/13/25 08:42 Months Nurse Filling Out Transfusion DSCHRIBER 08/13/25 08:42 & Questions: Date: 08/13/25 08/13/25 08:42 Time: 08:45 08/13/25 08:42 Patient unable to answer at this time (ie. confused, unrespo /Reproduction History /Reproductive History - payable representative: /Reproductive Hx- payable representative Hx Now No 08/13/25 08:42 Gestational Age (in weeks): EDC: Hx Hx Para Hx Section SAB No 08/13/25 08:42 [facility] Medical History (Updated 08/13/25 @ 09:01 by Tatyana Vásquez) Raynaud disease Wears glasses Depression Alcohol use Prostate disease Back pain Loss of consciousness Seizures History of hiatal hernia Shortness of breath on exertion CPAP (continuous positive airway pressure) dependence Non-smoker History of edema History of pain when walking History of stress test History of echocardiogram History of irregular heartbeat DLBCL (diffuse large B cell lymphoma) BPH with obstruction/lower urinary tract symptoms GERD (gastroesophageal reflux disease) Home Medications Medication Instructions Recorded Last Taken Type chlorpheniramine maleate 4 mg 4 mg PO QHS allergies Unknown History tablet (Allergy-Time) ipratropium bromide 42 mcg (0.06 15 ml NS BID 12/30/20 Unknown History %) nasal spray pantoprazole 40 mg tablet,delayed 40 mg PO QHS 1 01/06/21 History release 0600 CPAP - Continuous Positive Airway 07/14/25 Unknown Hi story Pressure([facility] USE ONLY) amlodipine 2.5 mg tablet 2.5 mg PO QDAY PRN Suspended until 07/14/25 Unknown History winter psyllium husk 0.4 gram capsule 0.4 g PO BID 08/02/25 U nknown History (Fiber (psyllium husk)) tamsulosin 0.4 mg capsule 0.4 mg PO BID 08/02/25 Unkno wn History apple cider vinegar 600 mg capsule 500 mg PO TID 08/09 Unknown History celecoxib 400 mg capsule (Celebrex) 200 mg PO BID 07/28 01/19 Unknown History cholecalciferol (vitamin D3) 25 1,000 unit PO BID 07/28 01/19 Unknown History mcg (1,000 unit) tablet fluticasone propionate 50 2 spray NASAL QHS allergies 08/09/25 Unknown History mcg/actuation nasal spray,suspension magnesium 250 mg tablet 250 mg PO QHS 08/09/25 Unkno wn History phenytoin sodium extended 100 mg 100 mg PO TID 5 Unknown History capsule bethanechol chloride 25 mg tablet 25 mg PO QHS 5 Unknown History Allergy/AdvReac Type Severity Reaction Status Date / Time mold Allergy Other Verified 08/13/25 08:34 Family History Mother Arthritis Grandfather Heart disease Father Cancer pancreatic discovered on his autopsy Maternal Grandfather Cancer prostate Surgical History (Updated 08/13/25 @ 08:59 by Tatyana Vásquez) Hx of oral surgery Hx of biopsy Hx of local excision of skin lesion Hx of colonoscopy History of esophagogastroduodenoscopy (EGD) H/O transurethral resection of prostate Social History Smoking Status: Never smoker alcohol intake: current alcohol intake frequency: holidays/special occasions only substance use type: does not use Audit: Pertinent Findings Pertinent Findings EKG Perinent findings: Normal sinus rhythm Low voltage QRS ([place]) Prolonged QT Abnormal ECG Stress test pertinent findings: Normal exercise myocardial perfusion stress test. Mild functional aerobic impairment. Preserved ejection fraction. Echo (EF%) pertinent findings: Interpretation Summary The global longitudinal strain = -22.6 % (normal). Normal LV size. The left ventricular ejection fraction is 60 %. Stage 1 diastolic dysfunction. Mild (1+) eccentric aortic valve insufficiency. Structurally normal valves. Additional pertinent findings: cxr;No evidence of acute cardiopulmonary pathology. If there is a palpable nodule in the right chest wall ultrasound is recommended. Recommendation Anesthesia Recommendation Anesthesia recommendation: OPTIMIZED for anesthesia
[2025-08-23] VITALS (7 sets, daily range): BP systolic 103–121; BP diastolic 59–70; PULSE 64–90; RESP 16; TEMP 36.5–36.8; O2SAT 98–100; BMI 25.2
[2025-08-23] MEDS: Lactated Ringers 1,000 ML 15 ML IV (11:44)
--- NOTE | 2025-08-23 12:42 | PRE.ANES_ITS ---
ASA Classification* ASA Classification ASA Classification: 3 Assessment & Plan Anesthesia* Anesthesia Assessment Anesthesia Assessment: Discussed sedation and/or anesthesia options, risks, benefits, and alternatives with patient/parents/legal guardian/POA. Questions invited. The patient/parents/legal guardian/POA seems to understand and agrees to proceed with anesthesia plan. Reviewed the physical assessment, medical history, allergy history and patient home medications list prior to surgery/procedure/anesthetic and documented any changes. Performed airway and anesthesia risk assessments. Anesthesia Type Anesthesia Type: MAC History Source History Obtained from:: Patient and Chart Anesthesia Focused Assessment* Temperature: 98.3 F Pulse Rate: 64 Blood Pressure: 111/70 Respiratory Rate: 16 Pulse Ox: 100 Oxygen Delivery Method: Room Air Airway Assessment Mouth opens: >3 cm Mallampati Score: III Teeth Condition: Caps/Crowns (Patient has several crowns. They are tight.) Neck Range of motion (ROM): Limited ROM (Slight Decrease) Labs Anesthesia Preop lab: CBC WBC, (4.4-11.0) 4.6 K/mm3 08/02/25, 11: RBC, (4.6-6.2) 4.08 M/mm3 L 08/02/25, 11:06 Hgb, (13.0-16.5) 12.2 g/dL L 08/02/25, 11:06 Hct, (40-54) 35.3 % L 08/02/25, 11:06 Plt Count, (150-450) 337 K/mm3 08/02/25, 11:06 CHEMISTRY Potassium, (3.3-5.1) 4.3 mmol/L 08/02/25, 11:06 Sodium, (133-145) 131 mmol/L L 08/02/25, 11:06 Magnesium, (1.6-2.6) 2.5 mg/dL 02/13/22, 13:34 BUN, (4-19) 8 mg/dL 08/02/25, 11:06 Creatinine, (0.70-1.20) 0.69 mg/dL L 08/02/25, 11:06 Glucose, (70-99) 101 mg/dL H 08/02/25, 11:06 TSH, (0.300-4.200) 1.600 uIU/mL 07/01/25, 10:04 COAG Pre-Assessment Diagnosis/Proposed Procedure Planned Operative Procedure(s): INSERTION VASCULAR PORT RIGHT POSS LEFT Anesthesia History 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 08/13/25 08:42 Cholinesterase deficiency No 08/13/25 08:42 You/Your Family Experience No 08/13/25 08:42 fever (hyperthermia) with Relationship Recent Exposure to Contagious No 08/23/25 11:44 Disease Does patient have nerve No 08/13/25 08:42 stimulator Patient instructed to have device shut off --Does patient have Pacemaker No 08/23/25 11:44 or ICD? When Was Last Pacemaker Check QUESTION #4 FULL TEXT: You/Your Family Experience fever (hyperthermia) with Anesthesia Last Oral Intake Last Oral intake: Last Oral Intake NPO since :08/23/25 11:44 Meds taken in AM with sips of Yes 08/23/25 11:44 water? Meds patient instructed to take am of surgery Any additional information?: Yes NPO since: (Black coffee at 7:25 AM.) Meds taken in AM with sips of water?: Yes Meds patient instructed to take am of surgery: Dilantin, tamsulosin. PONV PONV - industrial waste inspector: PONV - industrial waste inspector Female No 08/13/25 08:42 HX of Motion Sickness No 08/13/25 08:42 HX of N/V After Surgery No 08/13/25 08:42 Non-Smoker Yes 08/13/25 08:42 Duration of Surgery greater No 08/13/25 08:42 than 60 minutes Number of Risk Factors 1 08/13/25 08:42 PONV Score Low Risk 08/13/25 08:42 Height & Weight Height & Weight: Anesthesia: Height & Weight Height 5 ft 7 in 08/23/25 11:44 Weight: 73 kg 08/23/25 11:44 Body Mass Index (BMI) 25.2 08/23/25 11:44 Respiratory Assessment Respiratory Assessment - industrial waste inspector: Respiratory Tract Infection Hx - industrial waste inspector Hx Respiratory Tract Infection No 08/13/25 08:42 STOP Sleep Apnea STOP Sleep Apnea - industrial waste inspector: STOP Sleep Apnea - industrial waste inspector Hx Hypertension No 08/13/25 08:42 Hx Sleep Apnea Yes 08/13/25 08:42 CPAP Yes 08/13/25 08:42 BIPAP No 08/13/25 08:42 Do you snore loudly (louder than talking or can be heard Do you often feel tired/ fatigued/ sleepy during daytime? Has anyone observed you stop breathing during sleep? STOP Results Positive 08/13/25 08:42 QUESTION #5 FULL TEXT : Do you snore loudly (louder than talking or can be heard through closed doors)? 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 Specify any problems Hx of Preganancy in last 3 N/A 08/13/25 08:42 Months Nurse Filling Out Transfusion DSCHRIBER 08/13/25 08:42 & Questions: Date: 08/13/25 08/13/25 08:42 Time: 08:45 08/13/25 08:42 Patient unable to answer at this time (ie. confused, unrespo /Reproduction History /Reproductive History - industrial waste inspector: /Reproductive Hx- industrial waste inspector Hx Now No 08/13/25 08:42 Gestational Age (in weeks): EDC: Hx Hx Para Hx Section SAB No 08/13/25 08:42 Active Medications Active Medications: Current Medications Generic Name Dose Route Start Last Admin Trade Name Freq PRN Reason Stop Dose Admin Cefazolin Sodium 2 gm/ Sodium 110 mls @ 200 mls/hr 08/23/25 13:00 Chloride IV 08/23/25 13:32 INTRAOP ONE Lactated Ringer's 1,000 mls @ 15 mls/hr 08/23/25 11:15 08/23/25 11:44 IV 15 mls/hr .Q48H NINA Administration [facility] Medical History Encounter for education Raynaud disease Wears glasses Depression Alcohol use Prostate disease Back pain Loss of consciousness Seizures History of hiatal hernia Shortness of breath on exertion CPAP (continuous positive airway pressure) dependence Non-smoker History of edema History of pain when walking History of stress test History of echocardiogram History of irregular heartbeat DLBCL (diffuse large B cell lymphoma) BPH with obstruction/lower urinary tract symptoms GERD (gastroesophageal reflux disease) Home Medications Medication Instructions Recorded Last Taken Type chlorpheniramine maleate 4 mg 4 mg PO QHS allergies Unknown History tablet (Allergy-Time) ipratropium bromide 42 mcg (0.06 15 ml NS BID 12/30/20 Unknown History %) nasal spray pantoprazole 40 mg tablet,delayed 40 mg PO QHS 1 01/06/21 History release 0600 CPAP - Continuous Positive Airway 07/14/25 Unknown Hi story Pressure([facility] INFORMATIONAL USE ONLY) amlodipine 2.5 mg tablet 2.5 mg PO QDAY PRN Suspended until 07/14/25 Unknown History winter psyllium husk 0.4 gram capsule 0.4 g PO BID 08/02/25 U nknown History (Fiber (psyllium husk)) tamsulosin 0.4 mg capsule 0.4 mg PO BID 08/02/2508/23 History apple cider vinegar 600 mg capsule 500 mg PO TID 08/09 Unknown History celecoxib 400 mg capsule (Celebrex) 200 mg PO BID 07/28 01/19 Unknown History cholecalciferol (vitamin D3) 25 1,000 unit PO BID 07/28 01/19 Unknown History mcg (1,000 unit) tablet fluticasone propionate 50 2 spray NASAL QHS allergies 08/09/25 Unknown History mcg/actuation nasal spray,suspension magnesium 250 mg tablet 250 mg PO QHS 08/09/25 Unkno wn History phenytoin sodium extended 100 mg 100 mg PO TID 5 08/23/25 History capsule bethanechol chloride 25 mg tablet 25 mg PO QHS 5 Unknown History allopurinol 300 mg tablet 300 mg PO .COMPLEX #30 tabs 08/17/25 Unknown Rx lidocaine-prilocaine 2.5 %-2.5 % 1 applic topical ONCE PRN port 08/17/25 Unknown Rx topical cream access 30 days #30 grams ondansetron 8 mg disintegrating 8 mg PO Q8H PRN nausea and 08/17/25 Unknown Rx tablet vomiting #30 tabs prednisone 50 mg tablet 100 mg (2 x 50 mg) PO .COMPL EX #60 08/17/25 Unknown Rx tabs prochlorperazine maleate 10 mg 10 mg PO Q6H PRN nausea and 08/17/25 Unknown Rx tablet vomiting #30 tabs Allergy/AdvReac Type Severity Reaction Status Date / Time mold Allergy Other Verified 08/23/25 11:42 Family History Mother Arthritis Grandfather Heart disease Father Cancer pancreatic discovered on his autopsy Maternal Grandfather Cancer prostate Surgical History Hx of oral surgery Hx of biopsy Hx of local excision of skin lesion Hx of colonoscopy History of esophagogastroduodenoscopy (EGD) H/O transurethral resection of prostate Social History Smoking Status: Never smoker alcohol intake: current alcohol intake frequency: holidays/special occasions only substance use type: does not use Review of Systems (Anesthesia) ROS Narrative System reviewed and no additional complaints, except as documented.
--- NOTE | 2025-08-23 13:35 | PCM.HP.BLA ---
History and Physical Date of Service: 08/09/25 MR#: [id number] Acct: [id number] Name: MAUREEN RUSHING Rep #: [id number] : 1950 Provider: Dr. Anish Plasencia MD Age/Sex: 75/M Location: [facility] [place] Status: Signed Intake Vital Signs 08/02/2510:17 08/09/2509:56 Height 5 ft 7 in 5 ft 7 in Weight: 164 lb 162 lb 2 oz BMI 25.7 25.4 BP 106/69 103/64 Blood Pressure Location Lt brachial Rt brachial Position Sitting Sitting Respiration 18 18 Pulse 71 64 Pulse Source Monitor Monitor Temp 98.0 F 97.4 F L Temp Source Temporal Pulse Oximetry (%) 98 100 Oxygen Delivery Method room air room air Intake Visit Reasons: PORT PLACEMENT Chief Complaint: Port Placement Restaurant Crew Required: No Accompanied by: Is patient in pain?: No Allergies mold Allergy (Verified 08/09/25 09:58) Other Medications Medication Instructions Recorded Confirmed Type chlorpheniramine maleate 4 mg 4 mg PO QHS allergies 08/23/19 08/09/25 History tablet (Allergy-Time) ipratropium bromide 42 mcg (0.06 15 ml NS BID 12/30/20 08/09/25 History %) nasal spray pantoprazole 40 mg tablet,delayed 40 mg PO DAILY 12/30/20 08/09/25 History release CPAP - Continuous Positive Airway 07/14/25 08/09/25 History Pressure([facility] INFORMATIONAL USE ONLY) amlodipine 2.5 mg tablet 2.5 mg PO QDAY PRN Suspended until 07/14/25 08/09/25 History winter psyllium husk 0.4 gram capsule 0.4 g PO BID 08/02/25 08/09/25 History (Fiber (psyllium husk)) tamsulosin 0.4 mg capsule 0.4 mg PO BID 08/02/25 08/09/25 History apple cider vinegar 600 mg capsule 500 mg PO TID 08/09/25 08/09/25 History bethanechol chloride 25 mg tablet 25 mg PO QHS 08/09/25 08/09/25 History celecoxib 400 mg capsule (Celebrex) 200 mg PO BID 08/09/25 08/09/25 History cholecalciferol (vitamin D3) 25 1,000 unit PO BID 08/09/25 08/09/25 History mcg (1,000 unit) tablet fluticasone propionate 50 2 spray NASAL QHS allergies 08/09/25 08/09/25 History mcg/actuation nasal spray,suspension magnesium 250 mg tablet 250 mg PO QDAY 08/09/25 08/09/25 History phenytoin sodium extended 100 mg 100 mg PO TID 08/09/25 08/09/25 History capsule Have you fallen in the past year?: No PFSH Medical History BPH with obstruction/lower urinary tract symptoms Seasonal allergies GERD (gastroesophageal reflux disease) Obstructive sleep apnea Hypertension Seizure disorder DLBCL (diffuse large B cell lymphoma) Surgical History H/O transurethral resection of prostate Family History Mother Arthritis Grandfather Heart disease Father Cancer pancreatic discovered on his autopsy Maternal Grandfather Cancer prostate Social History Smoking Status: Never smoker alcohol intake: current alcohol intake frequency: holidays/special occasions only substance use type: does not use HPI HPI HPI: Patient is a 75-year-old male who presents for consideration of port placement. He initially met with me on 07/14/2025 in consultation related to a right axillary mass that underwent core needle biopsy at the same visit. Patient was diagnosed with diffuse B cell lymphoma with that biopsy and subsequently met with oncology. He is awaiting a PET scan tomorrow before final treatment plan details are arranged. He shares that he is doing better with the pain from his axillary mass since beginning celecoxib 200 mg twice daily. He notes that it is large in size but is uncertain whether this grown. Patient has no prior history of central line placement. Patient has no pacemaker or intracardiac defibrillator. Patient has no renal dysfunction and are not on hemodialysis. Mr. Rushing is not currently prescribed blood thinners. ROS General General: No weight change, appetite, fatigue, colon cancer, breast cancer or weakness HEENT HEENT: No difficulty swallowing, eye injury, eye surgery, swollen glands or hoarseness Endo Endocrine: No thyroid disease, diabetes mellitus, thyroid cancer, Hair loss, heat intolerance or cold intolerance Skin Skin: No rash or changing moles Musc Musculoskeletal: Yes back problems; No arthritis, rheumatoid arthritis, gout or joint pain Cardio Cardiovascular: No murmur, pacemaker, heart disease, atrial fibrillation, high blood pressure, heart attack, heart stent, palpitations, shortness of breath with exertion or chest pain Psych Psychiatric: No depression, anxiety or hearing voices Resp Respiratory: No shortness of breath, Yes sleep apnea, Yes cough, No COPD, No asthma, No emphysema and No wheezing Gastro Gastrointestinal: No abdominal pain, No nausea or vomiting, No diarrhea, Yes constipation, No blood in stool, Yes acid reflux, No hemorrhoids, No ulcers, No gallbladder problem and No black,tarry stools Jamie Hematologic: No blood thinners, No blood disorders, No bleeding, No anemia and No blood clots Neuro Neurologic: No numbness, No tingling and No weakness Exam Const General: cooperative and anxious Chest Other: No scars, eruptions, or other lesions of either the right or left upper chest wall or base of the neck on the right or left Assessment and Plan Assessment and Plan (1) DLBCL (diffuse large B cell lymphoma): Status: Acute Comment: Patient is 75-year-old male previous established with ut for new right axillary mass status post core needle biopsy showing diffuse large B-cell lymphoma. He has pending final treatment plan arrangements with oncology but requires durable venous access to begin administration of chemotherapy. With no prior central line and no history of cutaneous infections I believe he is a good candidate for port placement. I discussed with him the risk for infection and the need to remain vigilant to aseptic technique as well as signs of infection once the port is placed. He and his have several questions that are answered and otherwise expressed their appreciation for the information. Plan: – Port-A-Cath placement with ultrasound guidance right versus left tentatively slated for 08/16/2025 I have examined the patient the following changes are noted: Patient has met again with oncology and plans are tentatively in place to begin first round of chemotherapy tomorrow 08/24/2025. There is no discussion around accessing the port for that infusion so we will plan to simply place the port at today's encounter. Patient requested refill review of the closure process and this was given. Neither he nor his offer any further questions. Consents were confirmed. Proceed to operating room for port as discussed above.
[2025-08-23] MEDS: Lidocaine 1% (5 ml sdv) 5 ML Vial IV (13:53)
[2025-08-23] MEDS: Cefazolin 1 GM/5 ML Vial 2 GM IV (14:05)
[2025-08-23] MEDS: Midazolam 2 MG/2 ML Syringe IV (14:20)
[2025-08-23] MEDS: Bupiv/Epi 0.25% 30 ML Vial (14:46)
--- NOTE | 2025-08-23 14:48 | OP.PCM_ITS ---
Procedures Cardiovascular CF Procedures [id number]: [id number] Insert tunneled cv cath Operative Report (Standard) Operative Information Date of Procedure: 08/23/25 Pre-Operative Diagnosis: B-cell lymphoma requiring durable venous access for initiation of chemotherapy Post-Operative Diagnosis: Same Surgery/Procedure Performed: Ultrasound and fluoroscopic guided placement of left internal jugular Port-A-Cath electric mule operator: No Type of Anesthesia: MAC/Supplemental RN Documented Start/Stop Times: Operation Date: 08/23/25 13:00 Case Time Into Pre-Op 08/23/25 11:08 Anesthesia Start 08/23/25 13:39 Into Room 08/23/25 13:39 Out of Pre-Op 08/23/25 13:39 Procedure Start 08/23/25 14:13 Procedure End 08/23/25 14:45 Anesthesia End 08/23/25 14:51 Out of Room 08/23/25 14:51 Into Recovery 08/23/25 14:54 Out of Recovery 08/23/25 15:05 Into Phase II Recovery 08/23/25 15:06 Out of Phase II 08/23/25 15:57 Procedure Start Time: 14:13 Procedure Stop Time: 14:45 Select all DRAINS/GRAFTS/IMPLANTS that apply: Implanted device (8 Amharic PowerPort) Implanted device details: Lot number [id number], expiration 05/27/2027 Estimated Blood Loss: 5 Specimen collected: No Description of surgery: After appropriate identification in the preoperative holding area the patient was brought to the operating room. There he was administered preoperative antibiotics and positioned supine on the operating room table. I performed a cursory exam of the patient's bilateral neck with ultrasound and found a rather diminutively-sized right internal jugular vein measuring only 8 mm in diameter. On the contralateral side patient's left internal jugular vein was much larger so I elected to proceed with left-sided placement after notifying patient. Once sedation was begun, the upper chest and lower cervical region were prepped and draped in usual sterile fashion. A formal timeout was then conducted to confirm both the patient and procedure. Ultrasound was used to localize the left internal jugular vein. Then a wheal of quarter percent bupivacaine plain was raised superficially in this location and the vein was accessed with a single attempt under direct ultrasound guidance using a Seldinger technique to place a guidewire. The position of the guidewire was confirmed with fluoroscopy. Next the position of the port pocket was determined and again local anesthetic was used to anesthetize the area of both the pocket and the tunneling cephalad. A transverse incision 3 cm in width was made down through the subcutaneous tissue. Selective electrocautery was used to obtain hemostasis. Then with blunt dissection the port pocket was developed. The catheter was connected to the tunneler and was tunneled up to the position of the guidewire. Here the dilator and peel-away sheath were placed over the guidewire and the guidewire was removed. Position was again confirmed with fluoroscopy. The catheter length was estimated based on the external placement of a hemostat to approximate the level of the janeth and the cavoatrial junction. The catheter was then fed into the sheath and slowly the sheath was peeled away as the catheter was inserted fully into the neck. Back in the chest the excess catheter was trimmed and the port was connected to the catheter. The port was tied into the pocket using 3-0 Vicryl. Function was then tested using sterile saline on a Torres needle. It was locked with 3 mL of heparinized saline (concentration 50U/5mL). The port pocket was closed with a deep dermal stitch using a running 3-0 Vicryl followed by 4-0 Monocryl subcuticular stitch. The 1 cm incision in the neck was closed with a single interrupted subcuticular stitch using 4-0 Monocryl. Dermabond was applied as a dressing. Patient was then aroused from the sedation and taken to PACU for ongoing recovery were a portable chest x-ray was obtained to confirm port positioning and exclude any pneumothorax. Surgical Findings: 25 mL local Complications Complications: No
--- NOTE | 2025-08-23 14:49 | EX.PCM.DISCH ---
Discharge Instructions Diet Discharge Diet: No restrictions Activity Discharge Activity: May Shower Dressing / Incision Call your doctor if your incision/area has: Continuous Slow Oozing, Sudden Increased Bleeding, Increased Pain/ Swelling, Increased Redness, Foul Smelling Discharge and Swelling at the incision site Call your doctor if you observe: Fever of 101 or Higher and Uncontrolled pain Cleanse incision/area with: Soap & Water Follow Up Care Test Results: Test results from this visit will be discussed in further detail at your follow-up appointment, if applicable. Discharge Plan Admission Primary Reason for Your Visit: Port placement Attending Provider: Anish Plasencia Primary Care Provider: Julio Rene Instructions Print Language: Kyrgyz Discharge Orders/Prescriptions Prescriptions: No Action amlodipine 2.5 mg tablet 2.5 mg PO QDAY PRN (Reason: Suspended until winter) Patient Comments: Suspended until winter (DME) CPAP - Continuous Positive Airway Pressure([facility] INFORMATIONAL USE ONLY) Device See Rx Instructions .Route Rx Instructions: As directed tamsulosin 0.4 mg capsule 0.4 mg PO BID psyllium husk [Fiber (psyllium husk)] 0.4 gram capsule 0.4 g PO BID celecoxib [Celebrex] 400 mg capsule 200 mg PO BID magnesium 250 mg tablet 250 mg PO QHS prochlorperazine maleate 10 mg tablet 10 mg PO Q6H PRN (Reason: nausea and vomiting) Qty: 30 2RF ondansetron 8 mg tablet,disintegrating 8 mg PO Q8H PRN (Reason: nausea and vomiting) Qty: 30 3RF lidocaine-prilocaine 2.5-2.5 % cream 1 applic topical ONCE PRN (Reason: port access) 30 Days Qty: 30 2RF prednisone 50 mg tablet 100 mg PO .COMPLEX Qty: 60 0RF Rx Instructions: 100 mg orally; 50 mg orally ONLY days 1-5 of chemotherapy cycle allopurinol 300 mg tablet 300 mg PO .COMPLEX Qty: 30 0RF Rx Instructions: 300 mg orally; daily starting the day before chemotherapy chlorpheniramine maleate [Allergy-Time] 4 MG tablet 4 mg PO QHS phenytoin sodium extended 100 mg capsule 100 mg PO TID fluticasone propionate 50 mcg/actuation spray,suspension 2 spray NASAL QHS pantoprazole 40 MG tablet 40 mg PO QHS ipratropium bromide 15 ML spray,non-aerosol 15 ml NS BID apple cider vinegar 600 mg capsule 500 mg PO TID cholecalciferol (vitamin D3) 25 mcg (1,000 unit) tablet 1,000 unit PO BID bethanechol chloride 25 mg tablet 25 mg PO QHS Referrals / Follow Up: Julio Rene MD [Primary Care Provider, Family Practice] Disposition Disposition (needs filled in before D/C Order can be placed): Home, Self Care
--- NOTE | 2025-08-23 14:55 | RAD_ITS ---
PROCEDURE: CXR FOR LINE PLACEMENT 08/23/2025 REASON FOR EXAM: STATUS POST LINE PLACEMENT TECHNIQUE: Procedure Code: RADCXRLP Modality: DX Procedure: CXR FOR LINE PLACEMENT COMPARISON: Prior chest radiograph dated July 01, 2025. FINDINGS: A left-sided port a catheter has been placed with the tip in the right atrium. EKG electrodes are seen. The heart is nonenlarged. The lungs are clear. RAD/CXR for Line Placement IMPRESSION: The tip of the left port a catheter is in the right atrium. Reading Location: [id number]
--- NOTE | 2025-08-23 14:58 | PCM.POST.ANE ---
Anesthesia: Postop Eval I Current Vital Signs Temperature: 98.2 F Pulse Rate: 90 Blood Pressure: 121/59 Respiratory Rate: 16 Pulse Ox: 98 Oxygen Delivery Method: Room Air Assessment Airway patent: Yes Spontaneous unlabored respirations: Yes Mental status: Awake and Calm nausea: No Vomiting: No Anesthesia Complication: No Fluid Hydration Crystalloid volume administer (ml): 600 Total IV fluid infused: 600 Progress Note Anesthesia document: Postop Eval 1 completed: Yes
--- NOTE | 2025-08-23 17:54 | POSTOPAN2_ITS ---
Anesthesia Postop Eval I Sum Postop Eval Completion status Anesthesia document: Postop Eval 1 completed: Yes Anesthesia Postop Eval I Summary Anesthesia Postop Eval I Summary: Anesthesia Postop Eval I: Assessment Summary Airway patent Yes 08/23/25 14:59 [email or web address] [email or web address] Spontaneous unlabored Yes 08/23/25 14:59 [email or web address] [email or web address] respirations Mental status Awake,Calm 08/23/25 14:59 [email or web address] nausea No 08/23/25 14:59 [email or web address] Vomiting No 08/23/25 14:59 [email or web address] [email or web address] Anesthesia Postop Eval I: Fluid Summary Crystalloid volume administer 600 08/23/25 14:59 [email or web address] [email or web address] (ml) Colloids volume administered ( ml) Blood Product volume administered (ml) Total IV fluid infused 600 08/23/25 14:59 [email or web address] [email or web address] Anesthesia Postop Eval I: Summary Notes Anesthesia Complication No 08/23/25 14:59 [email or web address] Anesthesia Complication Comment: Post-operative progress note Anesthesia: Postop Eval II Evaluation Mental status: Awake and Calm Pain Level: 1 nausea: No Vomiting: No Complications Anesthesia Complication: No
--- NOTE | 2025-08-23 17:54 | PCM.POSTANE2 ---
Anesthesia Postop Eval I Sum Postop Eval Completion status Anesthesia document: Postop Eval 1 completed: Yes Anesthesia Postop Eval I Summary Anesthesia Postop Eval I Summary: Anesthesia Postop Eval I: Assessment Summary Airway patent Yes 08/23/25 14:59 [email or web address] Spontaneous unlabored Yes 08/23/25 14:59 [email or web address] respirations Mental status Awake,Calm 08/23/25 14:59 [email or web address] nausea No 08/23/25 14:59 [email or web address] Vomiting No 08/23/25 14:59 [email or web address] Anesthesia Postop Eval I: Fluid Summary Crystalloid volume administer 600 08/23/25 14:59 [email or web address] (ml) Colloids volume administered ( ml) Blood Product volume administered (ml) Total IV fluid infused 600 08/23/25 14:59 [email or web address] Anesthesia Postop Eval I: Summary Notes Anesthesia Complication No 08/23/25 14:59 [email or web address] [email or web address] Anesthesia Complication Comment: Post-operative progress note Anesthesia: Postop Eval II Evaluation Mental status: Awake and Calm Pain Level: 1 nausea: No Vomiting: No Complications Anesthesia Complication: No
== END 2025-08-23 15:58 | disposition home or self-care (01) ==
LOC: SDC 11:02 → AC 11:03
PROVIDERS: PCP Family Medicine; Referring Provider Surgery; Visit Provider Surgery
PROC: (CPT 36561; principal; 2025-08-23 12:45)
DX: Z45.2 Encounter for adjustment and management of vascular access device (principal); C83.30 Diffuse large B-cell lymphoma, unspecified site; K21.9 Gastro-esophageal reflux disease without esophagitis
CPT/HCPCS: 36561; 00532; 71045; 77001; C1894; C1788